=== PATIENT | male | born 1995 | race Caucasian/White ===

== ENCOUNTER 2019-08-02 22:06 | Emergency (ER) | payer OTHER ==
[~2019-08-02] VITALS: Ht 175.3 cm; Wt 88.6 kg
[2019-08-02] MEDS ORDERED: FAMOTIDINE INJ 20MG/2ML VIAL (S0028) IVP ONE (23:00)
[2019-08-02] MEDS ORDERED: PANTOPRAZOLE 40MG INJ (PROTONIX) (C9113) IV ONE (23:00)
[2019-08-02] MEDS ORDERED: NS 1,000 ML IV ONE (23:00)
[2019-08-02] MEDS ORDERED: GI COCKTAIL 50ML BTL(HYOSCYAMINE/MAALOX/LIDOCAINE VISCOUS)(1:3:1) PO ONE (23:00)
[2019-08-02] MEDS ORDERED: SUCRALFATE 1 GM TAB PO ONE (23:00)
[2019-08-02 23:29] LABS: BASO % 0.6 % (0.0-1.0); EOS # 0.2 10^3/uL (0.0-0.5); EOS % 2.2 % (0.0-3.0); HEMATOCRIT 47.6 % (42.0-52.0); HEMOGLOBIN 16.6 g/dl (13.5-17.5); LYMPH # 2.8 10^3/uL (1.5-5.0); LYMPH % 38.9 % (24.0-44.0); MEAN CORPUSCULAR HEMOGLOBIN 32.5 pg (27.0-33.0); MEAN CORPUSCULAR HGB CONC 34.9 g/dl (32.0-36.5); MEAN CORPUSCULAR VOLUME 93.3 fl (80.0-96.0); MONO # 0.5 10^3/uL (0.0-0.8); MONO % 7.1 % (0.0-5.0); NEUTROPHILS # 3.7 10^3/uL (1.5-8.5); NEUTROPHILS % 50.9 % (36.0-66.0); PLATELET COUNT, AUTOMATED 299 10^3/uL (150-450); WHITE BLOOD COUNT 7.2 10^3/uL (4.0-10.0)
[2019-08-02] MEDS: READI-CAT 2 PO SCH (23:32)
[2019-08-02 23:40] LABS: INR 1.18; PROTHROMBIN TIME 14.7 SECONDS (11.8-14.0)
[2019-08-02 23:41] LABS: PARTIAL THROMBOPLASTIN TIME 29.7 SECONDS (25.0-38.4)
[2019-08-03] MEDS: READI-CAT 2 PO SCH (00:02)
[2019-08-03 00:07] LABS: ALBUMIN 4.2 GM/DL (3.2-5.2); BILIRUBIN,DIRECT 0.1 MG/DL (0.0-0.2); BILIRUBIN,TOTAL 0.3 MG/DL (0.2-1.0); TOTAL PROTEIN 8.2 GM/DL (6.4-8.2)
[2019-08-03] MEDS ORDERED: ISOVUE-370 76% 100ML VIAL (Q9967) As Ordered ONE (00:51)
--- NOTE | 2019-08-03 01:17 | REPVR ---
PROCEDURE INFORMATION: Exam: CT Abdomen And Pelvis With Contrast Exam date and time: 08/02/2019 10:56 PM Age: 23 years old Clinical indication: Abdominal pain; Generalized; Additional info: Gi bleeding, epigastric and lower abd pain TECHNIQUE: Imaging protocol: Computed tomography of the abdomen and pelvis with intravenous contrast. Radiation optimization: All CT scans at this facility use at least one of these dose optimization techniques: automated exposure control; mA and/or kV adjustment per patient size (includes targeted exams where dose is matched to clinical indication); or iterative reconstruction. Contrast material: ISO; Contrast volume: 100 ml; Contrast route: AC; Other contrast: Oral, barium, 600; COMPARISON: No relevant prior studies available. FINDINGS: Limitations: Evaluation for active GI bleeding is limited with oral contrast. Liver: Normal. No mass. Gallbladder and bile ducts: Normal. No calcified stones. No ductal dilation. Pancreas: Normal. No ductal dilation. Spleen: Normal. No splenomegaly. Adrenals: Normal. No mass. Kidneys and ureters: Normal. No hydronephrosis. Stomach and bowel: No obstruction. No mucosal thickening. Negative for colonic diverticulitis. Oral contrast in the bowel. Appendix: Appendix is normal. Intraperitoneal space: Unremarkable. No free air. No significant fluid collection. Vasculature: Unremarkable. No abdominal aortic aneurysm. Lymph nodes: Unremarkable. No enlarged lymph nodes. Bladder: Unremarkable as visualized. Reproductive: Prostate is normal in size. Bones/joints: Unremarkable. No acute fracture. Soft tissues: Unremarkable. IMPRESSION: No CT findings to suggest source of abdominal pain. Electronically signed by: Carly Ham On 08/03/2019 01:17:07 AM
[2019-08-03] MEDS ORDERED: CARA1TAB6 PO (01:34)
[2019-08-03] MEDS ORDERED: OMEP-218 PO (01:34)
[2019-08-03] MEDS ORDERED: DICY10CA13 PO (01:39)
[2019-08-03 01:51] VITALS: BP 130/80
== END 2019-08-03 01:53 | disposition home or self-care (01) ==
LOC: M ED 22:06
DX: K92.2 Gastrointestinal hemorrhage, unspecified (principal); K92.1 Melena; Z79.899 Other long term (current) drug therapy
CPT/HCPCS: 74177; 80047; 80076; 81001; 83605; 83690; 85025; 85610; 85730; 93041; 96361; 96374; 96375; 99284; C9113; Q9967

== ENCOUNTER 2019-12-13 12:00 | Emergency (ER) | payer OTHER ==
[~2019-12-13 12:00] MED LIST: CARA1TAB6 PO; DICY10CA13 PO; OMEP-218 PO
[2019-12-13] MEDS ORDERED: ISOVUE-370 76% 100ML VIAL As Ordered ONE (16:10)
[2019-12-17 20:01] LABS: AMPHETAMINES LEVEL URINE NEGATIVE (NEGATIVE); BARBITURATES URINE NEGATIVE (NEGATIVE); BENZODIAZEPINES URINE NEGATIVE (NEGATIVE); CANNABINOIDS URINE NEGATIVE (NEGATIVE); COCAINE METABOLITE URINE NEGATIVE (NEGATIVE); METHADONE URINE NEGATIVE (NEGATIVE); OPIATES URINE NEGATIVE (NEGATIVE); PHENCYCLIDINE URINE NEGATIVE (NEGATIVE)
[2019-12-17 20:02] LABS: ACETAMINOPHEN LEVEL < 2.0 UG/ML (10.0-30.0); ALBUMIN 3.4 GM/DL (3.2-5.2); ALT/SGPT 92 U/L (12-78); BILIRUBIN,DIRECT < 0.1 MG/DL (0.0-0.2); BILIRUBIN,TOTAL 0.3 MG/DL (0.2-1.0); BLOOD UREA NITROGEN 14 MG/DL (7-18); CARBON DIOXIDE LEVEL 31 MEQ/L (21-32); CHLORIDE LEVEL 107 MEQ/L (98-107); CREATININE FOR GFR 1.12 MG/DL (0.70-1.30); ETHYL ALCOHOL (ETHANOL) < 0.003 % (0.000-0.010); GLOMERULAR FILTRATION RATE > 60.0 (>60); GLUCOSE, FASTING 101 MG/DL (70-100); POTASSIUM SERUM 3.9 MEQ/L (3.5-5.1); SALICYLATE LEVEL < 1.7 MG/DL (5.0-30.0); SODIUM LEVEL 141 MEQ/L (136-145)
[2020-01-23 08:24] LABS: BASO # 0.1 10^3/uL (0.0-0.2); BASO % 0.4 % (0.0-1.0); EOS # 0.6 10^3/uL (0.0-0.5); EOS % 5.3 % (0.0-3.0); HEMATOCRIT 40.7 % (42.0-52.0); HEMOGLOBIN 13.9 g/dl (13.5-17.5); LYMPH # 1.5 10^3/uL (1.5-5.0); LYMPH % 13.2 % (24.0-44.0); MEAN CORPUSCULAR HEMOGLOBIN 32.7 pg (27.0-33.0); MEAN CORPUSCULAR HGB CONC 34.2 g/dl (32.0-36.5); MEAN CORPUSCULAR VOLUME 95.8 fl (80.0-96.0); NEUTROPHILS # 8.1 10^3/uL (1.5-8.5); NEUTROPHILS % 71.7 % (36.0-66.0); PLATELET COUNT, AUTOMATED 348 10^3/uL (150-450); RED BLOOD COUNT 4.25 10^6/uL (4.30-6.10); WHITE BLOOD COUNT 11.4 10^3/uL (4.0-10.0)
== END 2019-12-13 20:23 | disposition home or self-care (01) ==
LOC: M ED 12:00
DX: K51.90 Ulcerative colitis, unspecified, without complications (principal); R11.2 Nausea with vomiting, unspecified; Z79.899 Other long term (current) drug therapy
CPT/HCPCS: 74177; 80048; 80076; 80307; 83605; 85025; 99284; G0480; Q9967

== ENCOUNTER 2020-02-07 11:54 | Inpatient (IN) | payer OTHER ==
[~2020-02-07] VITALS: Ht 172.7 cm; Wt 74.6 kg
[2020-02-07] MEDS ORDERED: [UNRECOGNIZED DRUG - OTHER] (12:33)
[2020-02-07] MEDS ORDERED: NS 1,000 ML IV ONE ×2 (14:15→17:30)
--- NOTE | 2020-02-07 14:30 | REPVR ---
PROCEDURE INFORMATION: Exam: XR Chest, 1 View Exam date and time: 02/07/2020 2:18 PM Age: 24 years old Clinical indication: Other: Rectal bleeding and syncope; Additional info: Syncope/near-syncope TECHNIQUE: Imaging protocol: XR of the chest Views: 1 view. COMPARISON: No relevant prior studies available. FINDINGS: Lungs: Unremarkable. No consolidation. Pleural space: Unremarkable. No pleural effusion. No pneumothorax. Heart/Mediastinum: Unremarkable. No cardiomegaly. Bones/joints: Unremarkable. IMPRESSION: No evidence for acute pulmonary disease. Electronically signed by: Kyle Mccarthy On 02/07/2020 14:30:28 PM
[2020-02-07 14:35] LABS: BASO # 0.1 10^3/uL (0.0-0.2); BASO % 0.6 % (0.0-1.0); EOS # 0.1 10^3/uL (0.0-0.5); EOS % 0.9 % (0.0-3.0); HEMATOCRIT 35.9 % (42.0-52.0); HEMOGLOBIN 10.9 g/dl (13.5-17.5); LYMPH # 2.6 10^3/uL (1.5-5.0); LYMPH % 19.3 % (24.0-44.0); MEAN CORPUSCULAR HEMOGLOBIN 27.3 pg (27.0-33.0); MEAN CORPUSCULAR HGB CONC 30.4 g/dl (32.0-36.5); MONO % 7.4 % (0.0-5.0); NEUTROPHILS # 9.6 10^3/uL (1.5-8.5); NEUTROPHILS % 71.4 % (36.0-66.0); PLATELET COUNT, AUTOMATED 578 10^3/uL (150-450); RED BLOOD COUNT 3.99 10^6/uL (4.30-6.10); WHITE BLOOD COUNT 13.5 10^3/uL (4.0-10.0)
[2020-02-07 14:46] LABS: INR 1.1; PROTHROMBIN TIME 14.5 SECONDS (12.5-14.3)
[2020-02-07 14:47] LABS: AMPHETAMINES LEVEL URINE NEGATIVE (NEGATIVE); BARBITURATES URINE NEGATIVE (NEGATIVE); BENZODIAZEPINES URINE NEGATIVE (NEGATIVE); CANNABINOIDS URINE NEGATIVE (NEGATIVE); COCAINE METABOLITE URINE NEGATIVE (NEGATIVE); METHADONE URINE NEGATIVE (NEGATIVE); OPIATES URINE NEGATIVE (NEGATIVE); PARTIAL THROMBOPLASTIN TIME 28.2 SECONDS (24.2-38.5); PHENCYCLIDINE URINE NEGATIVE (NEGATIVE)
[2020-02-07 14:57] LABS: BLOOD UREA NITROGEN 10 MG/DL (7-18); CALCIUM LEVEL 9.8 MG/DL (8.5-10.1); CARBON DIOXIDE LEVEL 28 MEQ/L (21-32); CHLORIDE LEVEL 101 MEQ/L (98-107); CK-MB VALUE MASS < 1.0 NG/ML (<3.6); CPK CREATINE PHOSPHOKINASE 37 U/L (39-308); CREATININE FOR GFR 1.16 MG/DL (0.70-1.30); ETHYL ALCOHOL (ETHANOL) < 0.003 % (0.000-0.010); GLOMERULAR FILTRATION RATE > 60.0 (>60); GLUCOSE, FASTING 90 MG/DL (70-100); MAGNESIUM LEVEL 2.4 MG/DL (1.8-2.4); POTASSIUM SERUM 4.4 MEQ/L (3.5-5.1); SODIUM LEVEL 136 MEQ/L (136-145); THYROID STIMULATING HORMONE 0.571 uIU/ML (0.358-3.740); TROPONIN I < 0.02 NG/ML (< 0.10)
[2020-02-07] MEDS ORDERED: ISOVUE-370 76% 100ML VIAL As Ordered ONE (15:13)
--- NOTE | 2020-02-07 15:54 | REPVR ---
PROCEDURE INFORMATION: Exam: CT Abdomen And Pelvis With Contrast Exam date and time: 02/07/2020 3:37 PM Age: 24 years old Clinical indication: Abdominal pain; Generalized; Additional info: Gi bleed/ abdominal pain TECHNIQUE: Imaging protocol: Computed tomography of the abdomen and pelvis with intravenous contrast. Axial, coronal and sagittal reformatted images were created and reviewed. Radiation optimization: All CT scans at this facility use at least one of these dose optimization techniques: automated exposure control; mA and/or kV adjustment per patient size (includes targeted exams where dose is matched to clinical indication); or iterative reconstruction. Contrast material: ISOVUE 370; Contrast volume: 100 ml; Contrast route: INTRAVENOUS (IV); COMPARISON: CT ABD PELVIS WITH CONTRAST 12/13/2019 5:39 PM FINDINGS: Liver: 4 mm low-density lesion in the right hepatic lobe, similar to prior and too small to characterize. Gallbladder and bile ducts: No radiodense gallstones. No biliary ductal dilatation. Pancreas: Unremarkable. Spleen: Unremarkable. Adrenals: Unremarkable. Kidneys and ureters: No mass. No radiodense calculi. No hydronephrosis. Stomach and bowel: [id number] diffuse colonic wall thickening with associated mural and pericolonic edema, similar to prior. No obstruction. No pneumatosis. Appendix: Normal. Intraperitoneal space: No free fluid. No organized fluid collection. No free air. Vasculature: Unremarkable. No aneurysm. Lymph nodes: Small mesenteric lymph nodes, likely reactive. No pathologically enlarged lymph nodes. Urinary bladder: Unremarkable as visualized. Reproductive: Unremarkable. Bones/joints: No acute osseous abnormality. Soft tissues: Unremarkable. IMPRESSION: 1. Nonspecific pancolitis, as described above, similar to prior. 2. Additional findings, as above. Electronically signed by: Kyle Butler On 02/07/2020 15:54:05 PM
[2020-02-07 17:12] LABS: CLOSTRIDIUM DIFFICILE PCR POSITIVE (NEGATIVE)
[2020-02-07] MEDS ORDERED: VANCOMYCIN ORAL SOL 250MG/5ML ORAL SYRINGE PO ONE (17:15)
[2020-02-07] MEDS ORDERED: FERR5MLUD PO (18:11)
[2020-02-07] MEDS ORDERED: ONDA-83 PO (18:11)
--- NOTE | 2020-02-07 18:39 | HPEPDOC ---
General Date of Admission 02/07/2020 Date of Service: Feb 07, 2020 Attending Physician: ANATOLIY RAWLS MD Chief Complaint The patient is a 24-year-old male admitted with a reason for visit of Rectal Bleeding. Source: Patient, RN/MD Exam Limitations: No limitations Timing/Duration: Week(s), Getting worse Severity: Severe Associated Symptoms: Nausea, Other (abdominal pain, bloody diarrhea) History of Present Illness 24 yo active man with a recent 2m history of several hospital presentations to [facility] for abdominal pain with associated progressive anemia with slow GIB pending IBD workup with Dr. Fisher in the outpatient setting who presented with acute worsening of abdominal symptoms with copious diarrhea with episodic hematochezia and found to have Cdiff colitis, acute on chronic anemia and orthostatic hypotension. He reports no history of abdominal complaints before a few months ago. He has lost approximately 40 lbs within the few months that he has had epigastric pain, diarrhea and hematochezia. He has presented to several [facility] and was previously empirically placed on mesalamine by his PCP for presumed inflammatory bowel disease without remission, and instead, it made him queasy and feel poorly. It was stopped 1 month ago. Today he reports hematochezia with a mixture of clots and BRBPR, copious diarrhea, epigastric pain, nausea and feeling faint without fever, chills, rashes or chest pain. In the ED he was orthostatic and was administered 1L NS bolus. Work up was notable for WBC 13.5, Hgb 10.9 from 13.9 in 11/2019, platelets 578, na 136, K 4.4, Cr 1.16, TSH 0.571, negative tox screen, had pancolitis on CT A/P and had a positive C.diff toxin on testing. He is now being admitted to medicine with plan to hydrate, treat C.diff colitis, monitor GIB with tentative plan for outpatient GI follow up for IBD evaluation. Home Medications Scheduled Ferrous Sulfate (Ferrous Sulfate) 300 Mg/5 Ml Liquid, 2 ML PO BID, (Reported) Scheduled PRN Ondansetron HCl (Ondansetron HCl) 4 Mg Tablet, 4 MG PO Q4H PRN for NAUSEA OR V OMITING, (Reported) Allergies Coded Allergies: No Known Drug Allergies (Verified Allergy, Unknown, 08/02/19) Past Medical History Medical History Ongoing work up for probable IBD for multiple presentations at various area hospitals with abdominal pain with GIB and anemia pending evaluation by Phillip on 02/10/2020 Surgical History None Family History Significant Family History: No pertinent family hx Social History Alcohol: Denies Drugs: denies Recent Travel/Sick Contacts: Denies: Recent travel, Recent sick contacts Psychosocial History: No pertinent psych hx A-FIB/CHADSVASC A-FIB History Current/History of A-Fib/PAF?: No Current PO Anticoag Therapy: No Age/Risk Factor Scoring CHADSVASC: CHADSVASC Response (Comments) Value Age Risk Factor Age < 65 years old 0 Gender Risk Factor Male 0 Hx of CHF No 0 Hx of HTN No 0 Hx of Stroke/TIA/or VTE No 0 Hx of Diabetes No 0 Hx of Vascular Disease No 0 Total 0 Treatment Treatment ordered: NONE Reason Anticoagulant not given: Not indicated/[id number] Review of Systems Constitutional: Denies: Chills, Fever, Night Sweats Eyes: Denies: Pain, Vision change ENT: Denies: Head Aches, Ear Pain, Dysphagia Skin: Denies: Rash, Lesions, Breakdown Pulmonary: Denies: Dyspnea, Cough Cardiovascular: Denies: Chest Pain, Palpitations, Orthopnea, Paroxysmal Noc. Dyspnea, Lt Headedness Gastrointestinal: Reports: Nausea, Abdominal Pain, Diarrhea, Hematochezia Genitourinary: Denies: Dysuria, Frequency, Incontinence, Retention Hematologic: Denies: Bruising, Bleeding Excessively Endocrine: Denies: Polydipsia, Polyphagia, Polyuria, Heat Intolerance, Cold Intolerance, Other Endocrine Sx Musculoskeletal: Denies: Neck Pain, Back Pain, Joint Pain, Muscle Pain, Spasms Neurological: Denies: Weakness, Numbness, Change in speech, Confusion Psych: Reports: Mood Normal; Denies: Depression, Memory Issues Physical Examination General Exam: Positive: Alert, No Acute Distress Eye Exam: Positive: PERRLA, Conjunctiva & lids normal, EOMI; Negative: Sclera icteric ENT Exam: Positive: Atraumatic, Pharynx Normal; Negative: Mucous membr. moist/pink (dry MM) Neck Exam: Positive: Supple; Negative: JVD, thyromegaly Chest Exam: Positive: Clear to auscultation, Normal air movement Heart Exam: Positive: Rate Normal, Regular Rhythm, Normal S1, Normal S2; Negative: Murmurs, Rubs Telemetry: Positive: No significant arrhythmia Abdomen Exam: Positive: BS Hyperactive, Soft, Tenderness (diffuse mild TTP, worst in epigastrum, no rebound, no guarding); Negative: Hepatospenomegaly, Mass, Hernia Extremity Exam: Positive: Normal pulses; Negative: Clubbing, Cyanosis, Edema Skin Exam: Positive: Nl turgor and temperature; Negative: Breakdown, Lesion Neuro Exam: Positive: Normal Gait, Normal Speech, Cranial Nerves 3-12 NL, Reflexes 2+ Psych Exam: Positive: Mental status NL, Mood NL, Oriented x 3 Vital Signs Vital Signs Date Time Temp Pulse Resp B/P (MAP) Pulse Ox O2 Delivery O2 Flow Rate FiO2 02/07/20 13:01 137/75 (95) 02/07/20 12:54 120 100 Room Air 02/07/20 12:03 97.7 18 Laboratory Data Labs 24H Laboratory Tests 2 02/07/20 13:56: Immature Granulocyte % (Auto) 0.4, Neutrophils (%) (Auto) 71.4H, Lymphocytes (%) (Auto) 19.3L, Monocytes (%) (Auto) 7.4H, Eosinophils (%) (Auto) 0.9, Basophils (%) (Auto) 0.6, Neutrophils # (Auto) 9.6H, Lymphocytes # (Auto) 2.6, Monocytes # (Auto) 1.0H, Eosinophils # (Auto) 0.1, Basophils # (Auto) 0.1, Nucleated Red Blood Cells % (auto) 0.0, Prothrombin Time 14.5H, Prothromb Time International Ratio 1.10, Activated Partial Thromboplast Time 28.2, Anion Gap 7L, Glomerular Filtration Rate > 60.0, Calcium Level 9.8, Magnesium Level 2.4, Total Creatine Kinase 37L, Creatine Kinase MB < 1.0, Creatine Kinase MB Relative Index 2.70, Troponin I < 0.02, Thyroid Stimulating Hormone (TSH) 0.571, Urine Opiates Screen NEGATIVE, Urine Methadone Screen NEGATIVE, Urine Barbiturates Screen NEGATIVE, Urine Phencyclidine Screen NEGATIVE, Urine Amphetamines Screen NEGATIVE, Urine Benzodiazepines Screen NEGATIVE, Urine Cocaine Metabolite Screen NEGATIVE, Urine Cannabinoids Screen NEGATIVE, Ethyl Alcohol Level < 0.003 02/07/20 14:32: Lactic Acid Level 1.4 02/07/20 14:33: Clostridium difficile [id number] PRESUMPTIVE NEGATIVE, Clostridium difficile Toxin (PCR) POSITIVEA CBC/BMP Laboratory Tests 02/07/20 13:56 Microbiology Microbiology 02/07/20 Campylobacter (PCR), Received Pending 02/07/20 Clostridium difficile Toxin A&B PCR, Received Pending 02/07/20 Plesiomonas shigelloides (PCR), Received Pending 02/07/20 Salmonella (PCR)(RED), Received Pending 02/07/20 Vibrio Species (PCR), Received Pending 02/07/20 Vibrio Cholerae (PCR), Received Pending 02/07/20 Yersinia enterocolitica (PCR), Received Pending 02/07/20 Enteroaggregative E. coli (PCR), Received Pending 02/07/20 Enteropathogenic E. coli (PCR), Received Pending 02/07/20 Enterotoxigenic E. coli (PCR), Received Pending 02/07/20 E. coli Shiga-like Toxin (PCR), Received Pending 02/07/20 Escherichia coli 0157 (PCR), Received Pending 02/07/20 Enteroinvasive E. coli/Shigella PCR, Received Pending 02/07/20 Cryptosporidium (PCR), Received Pending 02/07/20 Cyclospora cayetanensis (PCR), Received Pending 02/07/20 Entamoeba histolytica (PCR), Received Pending 02/07/20 Giardia lamblia (PCR), Received Pending 02/07/20 Adenovirus Type F 40/41 (PCR), Received Pending 02/07/20 Astrovirus (PCR), Received Pending 02/07/20 Norovirus GI/GII (PCR), Received Pending 02/07/20 Rotavirus A (PCR), Received Pending 02/07/20 Sapovirus I/II/IV/V (PCR), Received Pending Assessment/Plan 24 yo active man with a recent 2m history of several hospital presentations to [facility] for abdominal pain with associated progressive anemia with slow GIB pending IBD workup with Dr. Fisher in the outpatient setting who presented with acute worsening of abdominal symptoms with copious diarrhea with episodic hematochezia and found to have Cdiff colitis, acute on chronic anemia and orthostatic hypotension. C diff colitis: -continue NS at 125cc/hr, sp NS bolus in ED -strict I/Os nad charting of number of BMs -250mg PO vanc Q6H -Cdiff precautions -zofran 4mg Q6H PRN for nausea -diet to advance as tolerated -check H/H Q6H for now -Pending IBD evaluation by Dr. Fisher with first appt scheduled for 02/09. Goal will be to treat C.diff and hopefully with improvement, to complete course as an outpatient so that he may present for his GI evaluation Acute on chronic anemia: Acute blood loss anemia on chronic JAY -Q6H H/H for now while have copious diarrhea -goal Hgb >8 -continue home ferrous sulfate -Anemia workup, could be mixed with malabsorption as well beyond iron deficiency DVT ppx: TEDs Dispo: medsurg, inpatient Plan / VTE VTE Prophylaxis Ordered?: Yes ANATOLIY RAWLS MD Feb 07, 2020 18:39
[2020-02-07] MEDS: NS 1,000 ML IV SCH (19:45)
--- NOTE | 2020-02-07 20:52 | ECGEPIP ---
[facility] - ED Test Date: 2020-02-07 Pat Name: MONICA WILLIAMSON Department: Room: - Gender: Male Review Appraiser: toney : 1995 Requested By: NASEEM Martinez Order Number: [id number] Reading MD: Chelsie Cho Measurements Intervals [place] Rate: 72 P: 71 IL: 135 QRS: 83 QRSD: 84 T: 73 QT: 371 QTc: 407 Interpretive Statements SINUS RHYTHM MODERATE ST DEPRESSION NO PRIOR Electronically Signed on 02-07-2020 20:52:13 EDT by Chelsie Cho
[2020-02-07 22:00] VITALS: BP 133/81
[2020-02-08] MEDS: VANCOMYCIN ORAL SOL 250MG/5ML ORAL SYRINGE PO SCH ×5 (00:44→23:51)
[2020-02-08] MEDS: NS 1,000 ML IV SCH ×3 (04:39→23:51)
[2020-02-08 06:00] VITALS: BP_SYST 146; BP_SYST 154; BP_DIAS 74; BP_DIAS 85
[2020-02-08 07:00] LABS: MEAN CORPUSCULAR HEMOGLOBIN 27.1 pg (27.0-33.0); MEAN CORPUSCULAR HGB CONC 30.7 g/dl (32.0-36.5); MEAN CORPUSCULAR VOLUME 88.1 fl (80.0-96.0); PLATELET COUNT, AUTOMATED 568 10^3/uL (150-450); RED BLOOD COUNT 3.29 10^6/uL (4.30-6.10); WHITE BLOOD COUNT 11.2 10^3/uL (4.0-10.0)
[2020-02-08 07:11] LABS: HEMOGLOBIN 8.9 g/dl (13.5-17.5)
[2020-02-08 07:45] LABS: BLOOD UREA NITROGEN 7 MG/DL (7-18); CALCIUM LEVEL 8.4 MG/DL (8.5-10.1); CARBON DIOXIDE LEVEL 25 MEQ/L (21-32); CHLORIDE LEVEL 105 MEQ/L (98-107); CREATININE FOR GFR 0.88 MG/DL (0.70-1.30); FERRITIN 12 NG/ML (26-388); GLOMERULAR FILTRATION RATE > 60.0 (>60); GLUCOSE, FASTING 86 MG/DL (70-100); IRON (FE) 14 UG/DL (65-175); PERCENT SATURATION 4.2 % (19.7-50.0); POTASSIUM SERUM 4.1 MEQ/L (3.5-5.1); SODIUM LEVEL 137 MEQ/L (136-145); TOTAL IRON BINDING CAPACITY 333 UG/DL (250-450)
[2020-02-08 10:31] LABS: VITAMIN B12 LEVEL 1026 PG/ML (247-911)
[2020-02-08 10:32] LABS: FOLATE 10.2 NG/ML (>5.4)
--- NOTE | 2020-02-08 13:31 | IPNPDOC ---
Text Note Date of Service The patient was seen on 02/08/20. NOTE SUBJECTIVE: -3 bowel movements overnight, continue to be mixed in with fresh blood OBJECTIVE: Vitals: see below. HDS, afebrile, on room air Gen: NAD Head: NCAT Eyes: PERRLA, EOMI, anicteric, non injected ENT: MMM, no mouth sores Neck: no palpable adenopathy, no JVD Pulm: CTAB Cardiac: RRR, no mrg Abd: epigastric TTP, normoactive sounds, soft, no masses or hepatosplenomegaly Ext: no LE edema, WWP, 2+ DP pulses Neuro: CN 2-12 intact, moving all extremities Psych: AOx3 Labs: Reviewed. See below for full details. WBC 11.2 hgb downtrended to 8.9 platelets 568 BMP pending Assessment: 24 yo active man with a recent 2m history of several hospital presentations to [facility] for abdominal pain with associated progressive anemia with slow GIB pending IBD workup with Dr. Fisher in the outpatient setting who presented with acute worsening of abdominal symptoms with copious diarrhea with episodic hematochezia and found to have Cdiff colitis, acute on chronic anemia and orthostatic hypotension. C diff colitis: -continue NS at 100cc/hr -strict I/Os and charting of number of BMs -Dose escalate to 500mg Q6 from 250mg Q6H PO vanc given degree of diarrhea and the GIB -Cdiff precautions -zofran 4mg Q6H PRN for nausea -regular diet for now -check H/H Q6H for now -Pending IBD evaluation by Dr. Fisher with first appt scheduled for 02/09. Goal at this time remains to treat C.diff and hopefully with improvement, to complete course as an outpatient so that he may present for his GI evaluation. Will consult surgery if GIB proves to be brisk. Acute on chronic anemia: Acute blood loss anemia on chronic JAY -Q12H H/H for now while having significant diarrhea w/ hematochezia. Will consult surgery if GIB proves to be brisk. Next check at 2PM -goal Hgb >8 -continue home ferrous sulfate -Anemia workup, could be mixed with malabsorption of other components as well beyond iron deficiency DVT ppx: TEDs Dispo: medsurg, inpatient VS,Fishbone, I+O VS, Fishbone, I+O Laboratory Tests 02/07/20 13:56 02/08/20 06:51 Vital Signs Date Time Temp Pulse Resp B/P (MAP) Pulse Ox O2 Delivery O2 Flow Rate FiO2 02/08/20 06:00 98.1 88 18 146/85 (105) 97 02/07/20 12:54 Room Air I&O- Last 24 Hours up to 6 AM 02/08/20 06:00 Intake Total 2000 ml Output Total 250 ml Balance 1750 ml ANATOLIY RAWLS MD Feb 08, 2020 07:57
[2020-02-08 14:00] VITALS: BP 155/96
[2020-02-08 14:13] LABS: HEMATOCRIT 29.1 % (42.0-52.0); HEMOGLOBIN 8.9 g/dl (13.5-17.5)
[2020-02-08] MEDS ORDERED: MORPHINE 2 MG/ML 1ML VIAL (J2270) IV PRN (17:45)
[2020-02-08] MEDS: ONDANSETRON 4MG/2ML VIAL IV PRN (18:01)
[2020-02-08 22:00] VITALS: BP 152/88
[2020-02-09] MEDS: NS 1,000 ML IV SCH ×3 (05:48→23:40)
[2020-02-09] MEDS: VANCOMYCIN ORAL SOL 250MG/5ML ORAL SYRINGE PO SCH ×4 (05:48→23:39)
[2020-02-09 06:00] VITALS: BP 141/85
[2020-02-09] MEDS ORDERED: traMADol 50 MG TAB PO PRN (08:45)
[2020-02-09] MEDS: ONDANSETRON 4MG/2ML VIAL IV PRN ×2 (09:08→19:06)
[2020-02-09 09:39] LABS: HEMATOCRIT 26.6 % (42.0-52.0); HEMOGLOBIN 8.1 g/dl (13.5-17.5); MEAN CORPUSCULAR HEMOGLOBIN 27.1 pg (27.0-33.0); MEAN CORPUSCULAR HGB CONC 30.5 g/dl (32.0-36.5); PLATELET COUNT, AUTOMATED 570 10^3/uL (150-450); RED BLOOD COUNT 2.99 10^6/uL (4.30-6.10); WHITE BLOOD COUNT 9.7 10^3/uL (4.0-10.0)
[2020-02-09 10:05] LABS: BLOOD UREA NITROGEN 3 MG/DL (7-18); CALCIUM LEVEL 8.3 MG/DL (8.5-10.1); CARBON DIOXIDE LEVEL 26 MEQ/L (21-32); CHLORIDE LEVEL 106 MEQ/L (98-107); CREATININE FOR GFR 0.93 MG/DL (0.70-1.30); GLOMERULAR FILTRATION RATE > 60.0 (>60); GLUCOSE, FASTING 102 MG/DL (70-100); POTASSIUM SERUM 3.8 MEQ/L (3.5-5.1); SODIUM LEVEL 138 MEQ/L (136-145)
--- NOTE | 2020-02-09 11:29 | IPNPDOC ---
Text Note Date of Service The patient was seen on 02/09/20. NOTE SUBJECTIVE: -Persistent bloody diarrhea -LLQ abdominal pain, mild this morning OBJECTIVE: Vitals: see below. HDS, afebrile, on room air Gen: NAD Head: NCAT Eyes: PERRLA, EOMI, anicteric, non injected ENT: MMM, no mouth sores Neck: no palpable adenopathy, no JVD Pulm: CTAB Cardiac: RRR, no mrg Abd: TTP, mostly in LLQ, normoactive sounds, soft, no masses or hepatosplenomegaly Ext: no LE edema, WWP, 2+ DP pulses Neuro: CN 2-12 intact, moving all extremities Psych: AOx3 Labs: Reviewed. See below for full details. Hgb drowntrended to 8.1 Assessment: 24 yo active man with a recent 2m history of several hospital presentations to [facility] for abdominal pain with associated progressive anemia with slow GIB pending IBD workup with Dr. Fisher in the outpatient setting who presented with acute worsening of abdominal symptoms with copious diarrhea with episodic hematochezia and found to have Cdiff colitis, acute on chronic anemia and orthostatic hypotension. C diff colitis: -Continue NS at 100cc/hr -strict I/Os and charting of number of BMs -Continue 500mg Q6 PO vanc, day 2 of high dose vanc -Cdiff precautions -zofran 4mg Q6H PRN for nausea -regular diet for now -Consulted Dr. Apodaca who was supposed to see him tomorrow AM in clinic and he will scope him inpatient --> clear liquid diet. 4L of golytely prep starting at 3PM for colonoscopy tomorrow -covid-19 test for scope tomorrow -[id number] for severe abdominal pain Acute on chronic anemia: Acute blood loss anemia on chronic JAY -Q12H H/H for now while having significant diarrhea w/ hematochezia. Will consult surgery if GIB proves to be brisk. Next check at 2PM -goal Hgb >8 -continue home ferrous sulfate -Anemia workup, could be mixed with malabsorption of other components as well beyond iron deficiency DVT ppx: TEDs Dispo: medsurg, inpatient. VS,Fishbone, I+O VS, Fishbone, I+O Laboratory Tests 02/08/20 14:00 Vital Signs Date Time Temp Pulse Resp B/P (MAP) Pulse Ox O2 Delivery O2 Flow Rate FiO2 02/09/20 06:00 99.4 87 16 141/85 (103) 97 Room Air I&O- Last 24 Hours up to 6 AM 02/09/20 06:00 Intake Total 2190 ml Output Total 1875 ml Balance 315 ml ANATOLIY RAWLS MD Feb 09, 2020 08:40
[2020-02-09] MEDS ORDERED: MORPHINE 2 MG/ML 1ML VIAL (J2270) IV PRN (11:45)
[2020-02-09 14:00] VITALS: BP 135/80
[2020-02-09 14:28] LABS: HEMATOCRIT 30.2 % (42.0-52.0); HEMOGLOBIN 9.1 g/dl (13.5-17.5)
[2020-02-09] MEDS ORDERED: GOLYTELY SOLN 4000 ML BTL PO ONE (15:00)
--- NOTE | 2020-02-09 16:25 | CR.PDOC ---
General Date of Consultation: Feb 09, 2020 Referring Provider: BEBA RAWLS MD Attending Physician: OTTO GOODRICH MD Consultation Primary physician/ hospitalist: -Dr. Beba De Oliveira Reason for consult: -Rectal bleeding and abnormal CT scan HPI: 24-year-old male patient with no chronic medical comorbidities, previously being worked up at outside [facility] GI clinic for diarrhea and blood in stools, is now admitted to [facility] for acute worsening of symptoms. Patient reports that for the past 2-3 months, he was noticing worsening diarrhea, with multiple loose watery stools ( every hour), with bright red blood in the stools, cramping lower abdom inal pain, nausea and vomiting intermittently. Patient also reports unintentional weight loss of 40 pounds over the last 3 months. Off note: Patient had blood in the stools with 3-5 bowel movements per day, formed to soft stools in the past for which he had multiple local area Hospitalizations, had colonoscopy in 2019 in [place], which patient reports was a nondiagnostic. As per EMR. Patient was on mesalamine in past, but was not taking it for the past 1 month. Review of Systems: GI: as stated above CVS: No chest pain, No palpitations, No leg swelling. RS: No Shortness of breath, No Wheezing, no cough COVER OPERATOR: No dizziness, No motor weakness, No sensory problems Hematology: No bruising, No gum bleeding, Musculoskeletal: No joint pain, ambulating well. Skin: No rash : No hematuria, No burning sensation of the urine ENT: No ear discharge/ pain, No dysphagia. Eyes: No photophobia. Jaundice Home medications: reviewed. Antithrombotic agents: -None Medical h/o: As above. Surgical h/o: None on abdomen. Social h/o: Alcohol: -Denies, smoking: Denies, IVDA/ drugs: Denies. Family h/o of GI cancers - None Prior Endoscopies: Patient reports having colonoscopy in [place] - nond iagnostic, as per patient. No reports available Prior GI evaluations: Patient is referred to and scheduled to see GI in [facility] clinic tomorrow. Exam: Vitals: reviewed General: Alert and oriented x 3, not in distress HEENT: NO pallor, no icterus. Normal oropharynx, NO cervical lymph nodes. Chest: symmetric with bilateral clear air entry, CVS: S1, S2 heard, normal, no murmurs . Abdomen: non-distended, no surgical scars, soft, non-tender, no palpable masses, normal bowel sounds heard. Rectal exam: Deferred at this time in view of scheduled colonoscopy. Extremities: no pedal edema, pulses palpable. COVER OPERATOR: no focal motor or sensory deficits. Moves all extremities Skin: no rash. Labs: reviewed.. Imaging: reviewed. Impression: -- Chronic lower GI symptoms with diarrhea, bloody stools, abnormal CT scan showing pancolitis and stool tests showing C. difficile infection -- Anemia likely from GI blood loss. Recommendations: -- Patient educated about the test results, possible differential diagnoses and All questions answered. -- Continue oral vancomycin course for C. difficile for 10 days ( due to suspected IBD and severe symptoms, it is reasonable to continue the higher dose. Discussed the risks and benefits with patient). -- In view of severe rectal bleeding and anemia, will schedule for Colonoscopy. The procedure, indications, risks (bleeding, perforation, infection, hypotension, respiratory depression, allergy, need for endotracheal intubation, surgery, colostomy, cardiac arrest, even ), benefits, limitations (e.g., mi ssing a lesion), and all other alternatives (including no intervention) were explained to the patient who understood and agreed for the procedure. -- Follow operative note for postprocedure recommendations. Plan of care discussed with patient and primary team. Patient verbalized understanding and agreed with the plan. Addendum/ Follow up after the Procedure: Patient tolerated the procedure well. No post procedure complications. Patient is noted to have severe diffuse ulceration extending from rectum to Splenic flexure. Also noted suspected pseudomembranes, suggestive of severe c. difficile colitis. Fluid aspirate and colon biopsies were done for further evaluation. Please review the operative note for detailed report. Will complete the course of vancomycin for total 10 days. If patient develops any ileus, abdominal distention or sepsis, then consider adding rectal vancomycin. Monitor clinical symptoms in hospital until improvement in bloody diarrhea due to high risk for complications. Obtain ASCA, ANCA panel and Hepatitis B Surface antibody and quanteferon. Based on the biopsy results if reported IBD, to consider immunomodulator therapy after resolution of C. difficile. Patient to follow up in GI clinic in 4 weeks to review the above results and fu rther management. Plan of care discussed with patient and he verbalized understanding and agreed. Vital Signs/I&O Vital Signs Date Time Temp Pulse Resp B/P (MAP) Pulse Ox O2 Delivery O2 Flow Rate FiO2 02/09/20 06:00 99.4 87 16 141/85 (103) 97 Room Air I&O- Last 24 Hours up to 6 AM 02/09/20 06:00 Intake Total 2190 ml Output Total 1875 ml Balance 315 ml Laboratory Data Labs 24H Laboratory Tests 2 02/09/20 09:15: Nucleated Red Blood Cells % (auto) 0.0, Anion Gap 6L, Glomerular Filtration Rate > 60.0, Calcium Level 8.3L CBC/BMP Laboratory Tests 02/09/20 09:15 02/09/20 13:55 Microbiology Microbiology 02/07/20 Campylobacter (PCR), Received Pending 02/07/20 Clostridium difficile Toxin A&B PCR, Received Pending 02/07/20 Plesiomonas shigelloides (PCR), Received Pending 02/07/20 Salmonella (PCR)(RDE), Received Pending 02/07/20 Vibrio Species (PCR), Received Pending 02/07/20 Vibrio Cholerae (PCR), Received Pending 02/07/20 Yersinia enterocolitica (PCR), Received Pending 02/07/20 Enteroaggregative E. coli (PCR), Received Pending 02/07/20 Enteropathogenic E. coli (PCR), Received Pending 02/07/20 Enterotoxigenic E. coli (PCR), Received Pending 02/07/20 E. coli Shiga-like Toxin (PCR), Received Pending 02/07/20 Escherichia coli 0157 (PCR), Received Pending 02/07/20 Enteroinvasive E. coli/Shigella PCR, Received Pending 02/07/20 Cryptosporidium (PCR), Received Pending 02/07/20 Cyclospora cayetanensis (PCR), Received Pending 02/07/20 Entamoeba histolytica (PCR), Received Pending 02/07/20 Giardia lamblia (PCR), Received Pending 02/07/20 Adenovirus Type F 40/41 (PCR), Received Pending 02/07/20 Astrovirus (PCR), Received Pending 02/07/20 Norovirus GI/GII (PCR), Received Pending 02/07/20 Rotavirus A (PCR), Received Pending 02/07/20 Sapovirus I/II/IV/V (PCR), Received Pending Allergies Coded Allergies: No Known Drug Allergies (Verified Allergy, Unknown, 08/02/19) Home Medications Scheduled Ferrous Sulfate (Ferrous Sulfate) 300 Mg/5 Ml Liquid, 2 ML PO BID for 30 Days, #120 (Reported) Scheduled PRN Ondansetron HCl (Ondansetron HCl) 4 Mg Tablet, 4 MG PO Q4H PRN for NAUSEA OR VOMITING, (Reported) OTTO GOODRICH MD Feb 09, 2020 16:25
[2020-02-09 22:00] VITALS: BP 139/86
[2020-02-10] VITALS (11 sets, daily range): BP systolic 130–157; BP diastolic 75–98
[2020-02-10] MEDS: VANCOMYCIN ORAL SOL 250MG/5ML ORAL SYRINGE PO SCH ×3 (06:48→18:18)
[2020-02-10] MEDS: NS 1,000 ML IV SCH ×2 (06:48→18:18)
[2020-02-10 08:11] LABS: HEMATOCRIT 32.4 % (42.0-52.0); HEMOGLOBIN 9.6 g/dl (13.5-17.5); MEAN CORPUSCULAR HEMOGLOBIN 26.4 pg (27.0-33.0); MEAN CORPUSCULAR HGB CONC 29.6 g/dl (32.0-36.5); MEAN CORPUSCULAR VOLUME 89.3 fl (80.0-96.0); PLATELET COUNT, AUTOMATED 669 10^3/uL (150-450); RED BLOOD COUNT 3.63 10^6/uL (4.30-6.10); WHITE BLOOD COUNT 10.2 10^3/uL (4.0-10.0)
[2020-02-10 08:31] LABS: BLOOD UREA NITROGEN 2 MG/DL (7-18); CALCIUM LEVEL 8.9 MG/DL (8.5-10.1); CARBON DIOXIDE LEVEL 27 MEQ/L (21-32); CHLORIDE LEVEL 105 MEQ/L (98-107); CREATININE FOR GFR 0.91 MG/DL (0.70-1.30); GLOMERULAR FILTRATION RATE > 60.0 (>60); GLUCOSE, FASTING 88 MG/DL (70-100); POTASSIUM SERUM 4.1 MEQ/L (3.5-5.1); SODIUM LEVEL 138 MEQ/L (136-145)
--- NOTE | 2020-02-10 11:43 | IPNPDOC ---
Text Note Date of Service The patient was seen on 02/10/20. NOTE SUBJECTIVE: -Persistent bloody diarrhea. Had golytely prep overnight -Mild LLQ abdominal pain this AM -NPo this AM for colonoscopy with Dr. Apodaca at 1PM OBJECTIVE: Vitals: see below. HDS, afebrile, on room air Gen: NAD Head: NCAT Eyes: PERRLA, EOMI, anicteric, non injected ENT: MMM, no mouth sores Neck: no palpable adenopathy, no JVD Pulm: CTAB Cardiac: RRR, no mrg Abd: mild TTP worst in LLQ, normoactive sounds, soft Ext: no LE edema, WWP, 2+ DP pulses Neuro: CN 2-12 intact, moving all extremities Psych: AOx3 Labs: Reviewed. See below for full details. Hgb was last 9.1 @ 2PM. Pending AM labs Assessment: 24 yo active man with a recent 2m history of several hospital presentations to [facility] for abdominal pain with associated progressive anemia with slow GIB pending IBD workup with Dr. Fisher in the outpatient setting who presented with acute worsening of abdominal symptoms with copious diarrhea with episodic hematochezia and found to have Cdiff colitis, acute on chronic anemia and orthostatic hypotension. C diff colitis: -Continue NS at 100cc/hr -strict I/Os and charting of number of BMs -Continue 500mg Q6 PO vanc, day 3 of high dose vanc -Cdiff precautions -zofran 4mg Q6H PRN for nausea -NPO for colonoscopy -Consulted Dr. Apodaca, s/p 4L of golytely prep, due for colonoscopy at 1PM today -covid-19 test negative -[id number] morphine IV for severe abdominal pain -IV zofran PRN for nausea Acute on chronic anemia: Acute blood loss anemia on chronic JAY -Q12H H/H -goal Hgb >8 DVT ppx: TEDs Dispo: medsurg, inpatient. VS,Fishbone, I+O VS, Fishbone, I+O Laboratory Tests 02/09/20 09:15 02/09/20 13:55 Vital Signs Date Time Temp Pulse Resp B/P (MAP) Pulse Ox O2 Delivery O2 Flow Rate FiO2 02/10/20 06:00 98.1 92 20 137/86 (103) 100 Room Air I&O- Last 24 Hours up to 6 AM 02/10/20 06:00 Intake Total 2300 ml Output Total 1625 ml Balance 675 ml ANATOLIY RAWLS MD Feb 10, 2020 07:57
[2020-02-10] MEDS ORDERED: propofoL 200 MG/20 ML VIAL ONE (13:29)
[2020-02-10] MEDS ORDERED: LIDOCAINE 2% 100MG/5ML SDV (FOR ANES.) ONE (13:29)
--- NOTE | 2020-02-10 14:05 | ROOR ---
" Patient Name: Eric Heath Procedure Date: 02/10/2020 1:09 PM Date of : 1995 Age: 24 Room: [facility] Gender: Male Note Status: Finalized Procedure: Colonoscopy Indications: Hematochezia, Chronic diarrhea, Diarrhea (presumed secondary to ulcerative colitis) Providers: Tj Apodaca MD Referring MD: 2. Inpatient 2. Inpatient, KWASI SHIRLEY MD Requesting Provider: Medicines: Monitored Anesthesia Care Complications: No immediate complications. Procedure: Pre-Anesthesia Assessment: - Prior to the procedure, a History and Physical was performed, and patient medications and allergies were reviewed. The patient is competent. The risks and benefits of the procedure and the sedation options and risks were discussed with the patient. All questions were answered and informed consent was obtained. Patient identification and proposed procedure were verified by the physician, the nurse and the anesthesiologist in the procedure room. Mental Status Examination: alert and oriented. Airway Examination: normal oropharyngeal airway and neck mobility. Respiratory Examination: clear to auscultation. CV Examination: normal. Prophylactic Antibiotics: The patient does not require prophylactic antibiotics. Prior Anticoagulants: The patient has taken no previous anticoagulant or antiplatelet agents. ASA Grade Assessment: II - A patient with mild systemic disease. After reviewing the risks and benefits, the patient was deemed in satisfactory condition to undergo the procedure. The anesthesia plan was to use moderate sedation / analgesia (conscious sedation). Immediately prior to administration of medications, the patient was re-assessed for adequacy to receive sedatives. The heart rate, respiratory rate, oxygen saturations, blood pressure, adequacy of pulmonary ventilation, and response to care were monitored throughout the procedure. The physical status of the patient was re-assessed after the procedure. The Colonoscope was introduced through the anus and advanced to the splenic flexure for evaluation. This was the intended extent. The colonoscopy was performed without difficulty. The patient tolerated the procedure well. The quality of the bowel preparation was good. The terminal ileum, ileocecal valve, appendiceal orifice, and rectum were photographed. Scope insertion time was 2 minutes. Scope withdrawal time was 8 minutes. The total duration of the procedure was 10 minutes. Findings: The perianal and digital rectal examinations were normal. A continuous area of bleeding ulcerated mucosa with stigmata of recent bleeding was present from rectum to splenic flexure. Biopsies were taken with a cold forceps for histology. Verification of patient identification for the specimen was done by the physician and nurse using the patient's name, date and medical record number. Estimated blood loss was minimal. Fluid aspiration was performed through the scope suction channel. The amount of fluid collected was 10 mL. The fluid was blood-tinged. Sample(s) were sent for microbiology. Biopsies were taken with a cold forceps for histology. Verification of patient identification for the specimen was done by the physician and nurse using the patient's name, date and medical record number. Estimated blood loss was minimal. A segmental pseudomembrane was found in the sigmoid colon and in the descending colon. Retroflexion in the rectum was not performed due to |{skip}|. Impression: - Mucosal ulceration. Biopsied. Fluid aspiration performed. - Pseudomembranous enterocolitis. Recommendation: - Patient has a contact number available for emergencies. The signs and symptoms of potential delayed complications were discussed with the patient. Return to normal activities tomorrow. Written discharge instructions were provided to the patient. - Low residue diet. - Continue present medications. - Vancocin (vancomycin) 500 mg PO QID for 10 days. - Check IBD panel, HbsAb, quanteferon for further assessment. - Await pathology results. - Repeat colonoscopy in 6 months to check healing and to assess disease activity. - Return to GI clinic in [facility] (address [address], [address], [place], [address]) in 4 -- 6 weeks. Please call GI clinic @ [phone] for apppointment date and time. - Return to primary care physician. Tj Apodaca MD Tj Apodaca MD 02/10/2020 2:04:42 PM Electronically signed by Tj Apodaca MD Number of Addenda: 0 Note Initiated On: 02/10/2020 1:09 PM Estimated Blood Loss: Estimated blood loss was minimal."
[2020-02-10] MEDS ORDERED: VANC1CAP7 PO (15:24)
[2020-02-10 15:49] LABS: CLOSTRIDIUM DIFFICILE PCR NEGATIVE (NEGATIVE)
[2020-02-10] MEDS: ONDANSETRON 4MG/2ML VIAL IV PRN (19:57)
[2020-02-11] MEDS: VANCOMYCIN ORAL SOL 250MG/5ML ORAL SYRINGE PO SCH ×2 (00:21→05:59)
[2020-02-11 03:45] VITALS: BP 153/94
[2020-02-11 05:50] LABS: HEMATOCRIT 28.9 % (42.0-52.0); MEAN CORPUSCULAR HEMOGLOBIN 27.3 pg (27.0-33.0); MEAN CORPUSCULAR HGB CONC 31.1 g/dl (32.0-36.5); MEAN CORPUSCULAR VOLUME 87.6 fl (80.0-96.0); PLATELET COUNT, AUTOMATED 583 10^3/uL (150-450)
[2020-02-11 06:00] VITALS: BP 159/90
[2020-02-11 06:10] LABS: BLOOD UREA NITROGEN 3 MG/DL (7-18); CALCIUM LEVEL 8.2 MG/DL (8.5-10.1); CARBON DIOXIDE LEVEL 29 MEQ/L (21-32); CHLORIDE LEVEL 106 MEQ/L (98-107); GLOMERULAR FILTRATION RATE > 60.0 (>60); GLUCOSE, FASTING 94 MG/DL (70-100); POTASSIUM SERUM 3.8 MEQ/L (3.5-5.1); SODIUM LEVEL 139 MEQ/L (136-145)
[2020-02-11] MEDS: NS 1,000 ML IV SCH ×3 (08:38→20:10)
[2020-02-11 10:00] VITALS: BP 148/89
--- NOTE | 2020-02-11 12:30 | IPNPDOC ---
Text Note Date of Service The patient was seen on 02/11/20. NOTE SUBJECTIVE: -Persistent copious diarrhea, less bloody elements -Abdominal pain has improved -Tolerating diet -had colonoscopy yesterday with Dr. Apodaca OBJECTIVE: Vitals: see below. HDS, afebrile, on room air Gen: NAD Head: NCAT Eyes: PERRLA, EOMI, anicteric, non injected ENT: MMM, no mouth sores Neck: no palpable adenopathy, no JVD Pulm: CTAB Cardiac: RRR, no mrg Abd: mild TTP, normoactive sounds, soft Ext: no LE edema, WWP, 2+ DP pulses Neuro: CN 2-12 intact, moving all extremities Psych: AOx3 Labs: Reviewed. See below for full details. Hgb 9 Cr 0.9 Assessment: 24 yo active man with a recent 2m history of several hospital presentations to [facility] for abdominal pain with associated progressive anemia with slow GIB pending IBD workup with Dr. Fisher in the outpatient setting who presented with acute worsening of abdominal symptoms with copious diarrhea with episodic hematochezia and found to have severe Cdiff colitis, acute on chronic anemia and orthostatic hypotension. C diff colitis: -Continue NS at 100cc/hr -strict I/Os and charting of number of BMs -Discontinue 500mg Q6 PO vanc, after 4 days without remission -start fidaxomicin 200mg BID -Cdiff precautions -zofran 4mg Q6H PRN for nausea -Consulted Dr. Apodaca, had colonoscopy on 02/09 -[id number] morphine IV for severe abdominal pain -IV zofran PRN for nausea -On colonoscopy had severe diffuse ulceration extending from rectum to Splenic flexure. Also noted suspected pseudomembranes, suggestive of severe c. difficile colitis. Fluid aspirate and colon biopsies were done for further evaluation. -Per GI: - If patient develops any ileus, abdominal distention or sepsis, then consider adding rectal vancomycin. - Monitor clinical symptoms in hospital until improvement in bloody diarrhea due to high risk for complications. - Obtain ASCA, ANCA panel and Hepatitis B Surface antibody and quanteferon. - Based on the biopsy results if reported IBD, to consider immunomodulator the rapy after resolution of C. difficile. - Patient to follow up in GI clinic in 4 weeks to review the above results and further management. Acute on chronic anemia: Acute blood loss anemia on chronic JAY. Stable -Daily CBC -goal Hgb >8 DVT ppx: TEDs Dispo: medsurg, inpatient. VS,Fishbone, I+O VS, Fishbone, I+O Laboratory Tests 02/11/20 05:38 Vital Signs Date Time Temp Pulse Resp B/P (MAP) Pulse Ox O2 Delivery O2 Flow Rate FiO2 02/11/20 06:00 99.0 83 18 159/90 (113) 98 Room Air I&O- Last 24 Hours up to 6 AM 02/11/20 06:00 Intake Total 460 ml Output Total 0 ml Balance 460 ml ANATOLIY RAWLS MD Feb 11, 2020 08:58
[2020-02-11] MEDS: FIDAXOMICIN 200 MG TAB (DIFICID) PO SCH ×2 (13:14→20:10)
[2020-02-11 14:00] VITALS: BP 146/80
[2020-02-11] MEDS: ONDANSETRON 4MG/2ML VIAL IV PRN (14:37)
[2020-02-11 22:00] VITALS: BP 135/79
[2020-02-11] MEDS: ACETAMINOPHEN TAB 650MG DOSE (2X325MG) PO PRN (22:00)
[2020-02-12 06:00] VITALS: BP 138/82
[2020-02-12 06:52] LABS: HEMATOCRIT 31.2 % (42.0-52.0); HEMOGLOBIN 9.4 g/dl (13.5-17.5); MEAN CORPUSCULAR HEMOGLOBIN 26.7 pg (27.0-33.0); MEAN CORPUSCULAR HGB CONC 30.1 g/dl (32.0-36.5); MEAN CORPUSCULAR VOLUME 88.6 fl (80.0-96.0); PLATELET COUNT, AUTOMATED 639 10^3/uL (150-450); RED BLOOD COUNT 3.52 10^6/uL (4.30-6.10); WHITE BLOOD COUNT 12.6 10^3/uL (4.0-10.0)
[2020-02-12 06:56] LABS: BLOOD UREA NITROGEN 3 MG/DL (7-18); CALCIUM LEVEL 8.2 MG/DL (8.5-10.1); CARBON DIOXIDE LEVEL 27 MEQ/L (21-32); CHLORIDE LEVEL 107 MEQ/L (98-107); CREATININE FOR GFR 0.81 MG/DL (0.70-1.30); GLOMERULAR FILTRATION RATE > 60.0 (>60); GLUCOSE, FASTING 87 MG/DL (70-100); SODIUM LEVEL 140 MEQ/L (136-145)
[2020-02-12] MEDS: NS 1,000 ML IV SCH ×2 (08:23→16:33)
[2020-02-12] MEDS: FIDAXOMICIN 200 MG TAB (DIFICID) PO SCH ×2 (08:23→20:14)
[2020-02-12] MEDS ORDERED: IRON SUCROSE 100MG 5ML VIAL (J1756 PER 1MG) IV SCH (09:00)
--- NOTE | 2020-02-12 10:32 | IPNPDOC ---
Text Note Date of Service The patient was seen on 02/12/20. NOTE SUBJECTIVE: -This morning so far had 2 BMs, starting to be formed, after switch to fidaxomicin -Abdominal pain has improved -Tolerating diet OBJECTIVE: Vitals: see below. HDS, afebrile, on room air Gen: NAD Head: NCAT Eyes: PERRLA, EOMI, anicteric, non injected ENT: MMM, no mouth sores Neck: no palpable adenopathy, no JVD Pulm: CTAB Cardiac: RRR, no mrg Abd: mild TTP, normoactive sounds, soft Ext: no LE edema, WWP, 2+ DP pulses Neuro: CN 2-12 intact, moving all extremities Psych: AOx3 Labs: Reviewed. See below for full details. WBC 12.6 Hgb 9.4 Cr 0.81 Ferritin 12 Assessment: 24 yo active man with a recent 2m history of several hospital presentations to [facility] hospitals for abdominal pain with associated progressive anemia with slow GIB pending IBD workup with Dr. Fisher in the outpatient setting who presented with acute worsening of abdominal symptoms with copious diarrhea with episodic hematochezia and found to have severe Cdiff colitis, acute on chronic anemia and orthostatic hypotension. C diff colitis: -Continue NS at 100cc/hr -strict I/Os and charting of number of BMs -Discontinued 500mg Q6 PO vanc, after 4 days without remission -started fidaxomicin 200mg BID, day 2 -Cdiff precautions -zofran 4mg Q6H PRN for nausea -Consulted Dr. Apodaca, had colonoscopy on 02/09 -[id number] morphine IV for severe abdominal pain -IV zofran PRN for nausea -On colonoscopy had severe diffuse ulceration extending from rectum to Splenic flexure. Also noted suspected pseudomembranes, suggestive of severe c. difficile colitis. Fluid aspirate and colon biopsies were done for further evaluation. -Per GI: - If patient develops any ileus, abdominal distention or sepsis, then consider adding rectal vancomycin. - Monitor clinical symptoms in hospital until improvement in bloody diarrhea due to high risk for complications. - Obtain ASCA, ANCA panel and Hepatitis B Surface antibody and quanteferon. - Based on the biopsy results if reported IBD, to consider immunomodulator therapy after resolution of C. difficile. - Patient to follow up in GI clinic in 4 weeks to review the above results and further management. Acute on chronic anemia: Acute blood loss anemia on chronic JAY. Stable -Daily CBC -goal Hgb >8 -Ferritin was 12, will give IV iron today and plan will be to discharge him home likely tomorrow with PO iron. DVT ppx: TEDs Dispo: medsurg, inpatient. Plan is for discharge tomorrow if BMs continue to be formed and frequency diminishes. He is receiving 1 dose of IV iron and plan is for home with iron drops up to 325mg/day because he did not tolerate iron sulfate pills before. He is to follow up with GI within 4 weeks and PCP within 1 week for resolution of Cdiff. VS,Fishbone, I+O VS, Fishbone, I+O Laboratory Tests 02/12/20 06:08 Vital Signs Date Time Temp Pulse Resp B/P (MAP) Pulse Ox O2 Delivery O2 Flow Rate FiO2 02/12/20 06:00 98.8 88 16 138/82 (100) 99 Room Air I&O- Last 24 Hours up to 6 AM 02/12/20 06:00 Intake Total 1200 ml Output Total 0 ml Balance 1200 ml ANATOLIY RAWLS MD Feb 12, 2020 09:00
[2020-02-12 10:40] VITALS: BP 141/84
[2020-02-12] MEDS ORDERED: IRON SUCROSE 100 MG in NS 100 ML OVER 1 HR IV SCH (11:00)
[2020-02-12 11:55] VITALS: BP 139/86
[2020-02-12 14:00] VITALS: BP 139/89
[2020-02-12 22:00] VITALS: BP 146/92
[2020-02-13] MEDS: NS 1,000 ML IV SCH (02:10)
[2020-02-13 06:00] VITALS: BP 141/90
[2020-02-13] MEDS: FIDAXOMICIN 200 MG TAB (DIFICID) PO SCH ×2 (09:33→21:00)
--- NOTE | 2020-02-13 13:28 | IPN ---
DATE: 02/13/2020 SUBJECTIVE: Eric is a 24-year-old admitted with severe C difficile colitis slowly responding to his current treatment. He is still on intravenous (IV) fluids, as well as fidaxomicin 200 mg b.i.d. He is having crampy abdominal pain, still occasional rectal bleeding, and loose stool. The frequency of stooling has decreased, but still significant. He is also iron deficient and has received intravenous iron. OBJECTIVE: VITAL SIGNS: Blood pressure 141/90, pulse 93, respiratory rate 16, O2 saturation 97%. GENERAL APPEARANCE: Alert, conversant, and in no distress. Clutching his abdomen as he walks. LUNGS: Clear. HEART: Rhythm regular. ABDOMEN: Soft. Diffusely tender particularly the left lower quadrant. Mildly distended. Bowel sounds are present. EXTREMITIES: No clubbing, cyanosis, or edema. LABORATORY DATA: White count is 12.6, hemoglobin 9.4, platelets 639,000. Sodium 140, potassium 4.0, BUN 3, creatinine 0.8, glucose 87 those look like they are both labs from yesterday and I do not think he had any labs ordered for today. ASSESSMENT AND PLAN: 1. Severe Clostridium difficile colitis. His abdomen is still quite tender on exam, and he is having crampy abdominal pain with still passing some blood. I think he needs another day in the hospital and he agrees to this. Continue his Dificid, as well as intravenous (IV) fluids. I have ordered labs for the morning, and hopefully he will be stable for discharge tomorrow. 2. Iron deficiency anemia. He will need some liquid iron preparation upon discharge. He is not tolerant of iron tablets. [facility]
[2020-02-13 14:00] VITALS: BP 139/90
[2020-02-13] MEDS ORDERED: ONDANSETRON 4 MG TAB PO PRN (17:00)
[2020-02-13] MEDS ORDERED: PREPARATION H SUPP (HEMORRHOID) PR PRN (20:30)
[2020-02-13 22:00] VITALS: BP 139/91
[2020-02-14 06:00] VITALS: BP 147/89
[2020-02-14 06:37] LABS: BASO # 0.1 10^3/uL (0.0-0.2); BASO % 0.6 % (0.0-1.0); EOS # 0.6 10^3/uL (0.0-0.5); HEMATOCRIT 30.3 % (42.0-52.0); HEMOGLOBIN 9.4 g/dl (13.5-17.5); LYMPH # 2.4 10^3/uL (1.5-5.0); LYMPH % 21.5 % (24.0-44.0); MEAN CORPUSCULAR HEMOGLOBIN 27.1 pg (27.0-33.0); MEAN CORPUSCULAR VOLUME 87.3 fl (80.0-96.0); MONO # 0.8 10^3/uL (0.0-0.8); MONO % 7.5 % (0.0-5.0); NEUTROPHILS # 7.2 10^3/uL (1.5-8.5); NEUTROPHILS % 64.9 % (36.0-66.0); PLATELET COUNT, AUTOMATED 672 10^3/uL (150-450); RED BLOOD COUNT 3.47 10^6/uL (4.30-6.10); WHITE BLOOD COUNT 11.2 10^3/uL (4.0-10.0)
[2020-02-14 07:00] LABS: BLOOD UREA NITROGEN 6 MG/DL (7-18); CARBON DIOXIDE LEVEL 29 MEQ/L (21-32); CHLORIDE LEVEL 105 MEQ/L (98-107); CREATININE FOR GFR 0.82 MG/DL (0.70-1.30); GLOMERULAR FILTRATION RATE > 60.0 (>60); GLUCOSE, FASTING 87 MG/DL (70-100); POTASSIUM SERUM 4.1 MEQ/L (3.5-5.1); SODIUM LEVEL 139 MEQ/L (136-145)
[2020-02-14] MEDS: ACETAMINOPHEN TAB 650MG DOSE (2X325MG) PO PRN (09:37)
[2020-02-14] MEDS: FIDAXOMICIN 200 MG TAB (DIFICID) PO SCH ×2 (09:37→20:03)
[2020-02-14] MEDS: MESALAMINE 400 MG CAPSULE DELAYED RELEASE (DELZICOL) PO SCH ×3 (11:22→20:03)
[2020-02-14] MEDS: MESALAMINE 1,000 MG SUPP PR SCH (11:22)
[2020-02-14 14:00] VITALS: BP 122/78
--- NOTE | 2020-02-14 19:38 | IPNPDOC ---
Date Seen The patient was seen on 02/14/20. Progress Note SUBJECTIVE: 8-10 watery, bloody BMs over past several days. N/V and rectal bleeding persists, 4 total that day nurse noted. Discussed with Dr. Gonzalez, started mesalamine TN and PO TID. WBC improving despite abd discomfort. Denies chest pain, sob, fevers or chills. OBJECTIVE: Vitals: Please see below Gen: NAD, resting in bed Head: NCAT Eyes: PERRLA, EOMI, anicteric, non injected ENT: MMM, no mouth sores Neck: no palpable adenopathy, no JVD Pulm: CTAB Cardiac: RRR, no mrg Abd: mild TTP in b/l lower quadrants , normoactive sounds, soft Ext: no LE edema, WWP, 2+ DP pulses Neuro: CN 2-12 intact, moving all extremities Psych: AOx3 Laboratory: Please see below Assessment: 24 yo active man with a recent 2m history of several hospital presentations to [facility] for abdominal pain with associated progressive anemia with slow GIB pending IBD workup with Dr. Fisher in the outpatient setting who presented with acute worsening of abdominal symptoms with copious diarrhea with episodic hematochezia and found to have severe Cdiff colitis, acute on chronic anemia. Plan: Abdominal pain, hematochezia likely 2/2 to C diff colitis, cannot rule out IBD based off findings on colonoscopy -8-10 bloody bowel movements persist daily -N/V with continued mild lower quadrant abd pain -S/p colonoscopy on 02/09 -Discontinued 500mg Q6 PO vanc, after 4 days without remission -F/u ASCA, ANCA panel -Started mesalamine PO and TN today -C/w fidaxomicin 200mg BID, c.diff precautions, zofran 4mg Q6H PRN for nausea, pain control. -Dr. Gonzalez following closely. Plan is f/u quantiferon studies, immuno studies. If blood stool persist and labs neg, consider starting steroids plus immunosuppressive therapy. Acute on chronic anemia: Acute blood loss anemia on chronic JAY. Stable -Daily CBC, s/p IV iron -goal Hgb >8 -Ferritin was 12 -Resume PO ferrous sulfate when able to keep down and hematochezia slows down. Has failed iron pills in past DVT ppx -TEDs DISPOSITION: Dr. gonzalez following closely. Plan is discharge home when medically improved. VS, I&O, 24H, Fishbone Vital Signs/I&O Vital Signs Date Time Temp Pulse Resp B/P (MAP) Pulse Ox O2 Delivery O2 Flow Rate FiO2 02/14/20 14:00 98.7 97 18 122/78 (93) 94 Room Air I&O- Last 24 Hours up to 6 AM 02/14/20 06:00 Intake Total 2570 ml Output Total 0 ml Balance 2570 ml Laboratory Data 24H LABS Laboratory Tests 2 02/14/20 06:03: Immature Granulocyte % (Auto) 0.5, Neutrophils (%) (Auto) 64.9, Lymphocytes (%) (Auto) 21.5L, Monocytes (%) (Auto) 7.5H, Eosinophils (%) (Auto) 5.0H, Basophils (%) (Auto) 0.6, Neutrophils # (Auto) 7.2, Lymphocytes # (Auto) 2.4, Monocytes # (Auto) 0.8, Eosinophils # (Auto) 0.6H, Basophils # (Auto) 0.1, Nucleated Red Blood Cells % (auto) 0.0, Anion Gap 5L, Glomerular Filtration Rate > 60.0, Calcium Level 9.0 CBC/BMP Laboratory Tests 02/14/20 06:03 Microbiology Microbiology 02/07/20 Campylobacter (PCR) - Final, Complete 02/07/20 Clostridium difficile Toxin A&B PCR - Final, Complete 02/07/20 Plesiomonas shigelloides (PCR) - Final, Complete 02/07/20 Salmonella (PCR)(RED) - Final, Complete 02/07/20 Vibrio Species (PCR) - Final, Complete 02/07/20 Vibrio Cholerae (PCR) - Final, Complete 02/07/20 Yersinia enterocolitica (PCR) - Final, Complete 02/07/20 Enteroaggregative E. coli (PCR) - Final, Complete 02/07/20 Enteropathogenic E. coli (PCR) - Final, Complete 02/07/20 Enterotoxigenic E. coli (PCR) - Final, Complete 02/07/20 E. coli Shiga-like Toxin (PCR) - Final, Complete 02/07/20 Escherichia coli 0157 (PCR) - Final, Complete 02/07/20 Enteroinvasive E. coli/Shigella PCR - Final, Complete 02/07/20 Cryptosporidium (PCR) - Final, Complete 02/07/20 Cyclospora cayetanensis (PCR) - Final, Complete 02/07/20 Entamoeba histolytica (PCR) - Final, Complete 02/07/20 Giardia lamblia (PCR) - Final, Complete 02/07/20 Adenovirus Type F 40/41 (PCR) - Final, Complete 02/07/20 Astrovirus (PCR) - Final, Complete 02/07/20 Norovirus GI/GII (PCR) - Final, Complete 02/07/20 Rotavirus A (PCR) - Final, Complete 02/07/20 Sapovirus I/II/IV/V (PCR) - Final, Complete Current Medications Current Medications Medications (Trade) Dose Ordered Sig/Luigi Route PRN Reason Start Time Stop Time Status Last Admin Dose Admin Acetaminophen (Tylenol Tab) 650 mg Q6HP PRN PO PAIN / FEVER 02/11/20 21:30 02/14/20 09:37 Fidaxomicin (Dificid) 200 mg Q12H PO 02/11/20 09:00 02/14/20 09:37 Home Med (Med Rec Complete!) ASDIRECTED XX 02/07/20 18:15 02/07/20 18:14 DC Home Med (Med Rec Complete!) ASDIRECTED XX 02/07/20 18:15 02/07/20 18:19 DC Iron (Venofer) 100 mg DAILY IV 02/12/20 09:00 02/13/20 10:00 UNV Iron 100 mg/ Sodium Chloride 105 ml @ 105 mls/hr Q24H IV 02/12/20 11:00 02/12/20 11:59 DC 02/12/20 10:33 Mesalamine (Delzicol) 1,600 mg TID PO 02/14/20 09:00 02/14/20 16:19 Mesalamine (Rowasa, Canasa) 1,000 mg DAILY TN 02/14/20 09:00 02/14/20 11:22 Morphine Sulfate (Morphine Sulfate Inj) 2 mg Q4HP PRN IV MODERATE PAIN (PS 5-7) 02/08/20 17:45 02/09/20 08:42 DC 02/08/20 17:57 Morphine Sulfate (Morphine Sulfate Inj) 2 mg Q4HP PRN IV MODERATE PAIN (PS 5-7) 02/09/20 11:45 Cancel Ondansetron HCl (ZOFRAN INJection) 4 mg Q6HP PRN IV NAUSEA OR VOMITING 02/07/20 18:15 02/13/20 16:56 DC 02/11/20 14:37 Ondansetron HCl (Zofran) 4 mg Q6HP PRN PO NAUSEA OR VOMITING 02/13/20 17:00 Phenylephrine HCl (Preparation H Supp) 1 sup QIDP PRN TN PAIN OR DISCOMFORT 02/13/20 20:30 Sodium Chloride 1,000 ml @ 100 mls/hr Q10H IV 02/07/20 18:07 02/09/20 08:41 DC 02/09/20 05:48 Sodium Chloride 1,000 ml @ 100 mls/hr Q10H IV 02/09/20 11:45 02/13/20 13:23 DC 02/13/20 02:10 Tramadol HCl (Ultram) 50 mg Q8HP PRN PO MODERATE PAIN (PS 5-7) 02/09/20 08:45 02/09/20 11:22 DC Vancomycin HCl (First-Vancomycin 50(Firvanq)- 250mg/5ml) 250 mg QID@00,06,12,18 PO 02/08/20 00:00 02/08/20 13:31 DC 02/08/20 13:00 Vancomycin HCl (First-Vancomycin 50(Firvanq)- 250mg/5ml) 500 mg Q6H PO 02/08/20 18:00 02/11/20 12:28 DC 02/11/20 05:59 Allergies Coded Allergies: No Known Drug Allergies (Verified Allergy, Unknown, 08/02/19) Francy Castro MD Feb 14, 2020 19:38
[2020-02-14 22:00] VITALS: BP 135/85
[2020-02-15 06:00] VITALS: BP 128/79
[2020-02-15 06:31] LABS: BASO # 0.1 10^3/uL (0.0-0.2); BASO % 0.7 % (0.0-1.0); EOS # 0.6 10^3/uL (0.0-0.5); EOS % 4.1 % (0.0-3.0); HEMATOCRIT 32.2 % (42.0-52.0); HEMOGLOBIN 9.8 g/dl (13.5-17.5); LYMPH # 3.3 10^3/uL (1.5-5.0); LYMPH % 22.4 % (24.0-44.0); MEAN CORPUSCULAR HEMOGLOBIN 26.3 pg (27.0-33.0); MEAN CORPUSCULAR HGB CONC 30.4 g/dl (32.0-36.5); MEAN CORPUSCULAR VOLUME 86.6 fl (80.0-96.0); MONO # 1.1 10^3/uL (0.0-0.8); MONO % 7.3 % (0.0-5.0); NEUTROPHILS # 9.7 10^3/uL (1.5-8.5); PLATELET COUNT, AUTOMATED 749 10^3/uL (150-450); RED BLOOD COUNT 3.72 10^6/uL (4.30-6.10); WHITE BLOOD COUNT 14.9 10^3/uL (4.0-10.0)
[2020-02-15 06:52] LABS: BLOOD UREA NITROGEN 9 MG/DL (7-18); CALCIUM LEVEL 9.2 MG/DL (8.5-10.1); CARBON DIOXIDE LEVEL 27 MEQ/L (21-32); CHLORIDE LEVEL 105 MEQ/L (98-107); CREATININE FOR GFR 0.86 MG/DL (0.70-1.30); GLOMERULAR FILTRATION RATE > 60.0 (>60); GLUCOSE, FASTING 96 MG/DL (70-100); POTASSIUM SERUM 3.9 MEQ/L (3.5-5.1); SODIUM LEVEL 137 MEQ/L (136-145)
[2020-02-15] MEDS: FIDAXOMICIN 200 MG TAB (DIFICID) PO SCH ×2 (09:41→20:03)
[2020-02-15] MEDS: MESALAMINE 1,000 MG SUPP PR SCH (09:41)
[2020-02-15] MEDS: MESALAMINE 400 MG CAPSULE DELAYED RELEASE (DELZICOL) PO SCH ×3 (09:41→20:03)
[2020-02-15 14:00] VITALS: BP 138/78
[2020-02-15 16:08] LABS: ANCA-ATYPICAL <1:20 titer (Neg:<1:20); ANTI-SACCHAROMYCES CEREV. IgA <20.0 Units (0.0-24.9); ANTI-SACCHAROMYCES CEREV. IgG <20.0 Units (0.0-24.9); CYTOPLASMIC NEUTROP AB ANCA-C <1:20 titer (Neg:<1:20); PERINUCLEAR AB ANCA-P <1:20 titer (Neg:<1:20)
--- NOTE | 2020-02-15 17:06 | IPNPDOC ---
Date Seen The patient was seen on 02/15/20. Progress Note SUBJECTIVE: Patient states that he had <6 bowel movements yesterday with only 1-2 recorded. Doing well with current medication regimen. Less bloody stool. H/H remains stable, goal Hgb >8. Discussed with Dr. Apodaca, will see again today. Denies chest pain, sob, fevers or chills. OBJECTIVE: Vitals: Please see below Gen: NAD, resting in bed Head: NCAT Eyes: PERRLA, EOMI, anicteric, non injected ENT: MMM, no mouth sores Neck: no palpable adenopathy, no JVD Pulm: CTAB Cardiac: RRR, no mrg Abd: mild TTP in b/l lower quadrants persists , normoactive sounds, soft Ext: no LE edema, WWP, 2+ DP pulses Neuro: CN 2-12 intact, moving all extremities Psych: AOx3 Laboratory: Please see below Assessment: 24 yo active man with a recent 2m history of several hospital presentations to [facility] for abdominal pain with associated progressive anemia with slow GIB pending IBD workup with Dr. Fisher in the outpatient setting who presented with acute worsening of abdominal symptoms with copious diarrhea with episodic hematochezia and found to have severe Cdiff colitis, acute on chronic anemia. Plan: Abdominal pain, hematochezia likely 2/2 to C diff colitis, cannot rule out IBD -<6 bloody bowel movements yesterday, improving slowly with currently medications -WBC 14K, may be reactive, afebrile -S/p colonoscopy on 02/09 -Discontinued 500mg Q6 PO vanc, after 4 days without remission -ASCA, ANCA panel neg -C/w mesalamine PO and NV, fidaxomicin 200mg BID, c.diff precautions, zofran 4mg Q6H PRN for nausea, pain control. -Dr. Apodaca following closely. If blood stool persist and labs neg, he may consider starting steroids plus immunosuppressive therapy. F/u GI recommendation Acute on chronic anemia: Acute blood loss anemia on chronic JAY. Stable -Daily CBC, s/p IV iron -goal Hgb >8 -Ferritin was 12 -Resume PO ferrous sulfate when able to keep down and hematochezia slows down. Has failed iron pills in past DVT ppx -TEDs DISPOSITION: Dr. Apodaca following closely. Plan is discharge home when medically improved. VS, I&O, 24H, Fishbone Vital Signs/I&O Vital Signs Date Time Temp Pulse Resp B/P (MAP) Pulse Ox O2 Delivery O2 Flow Rate FiO2 02/15/20 14:00 98.7 96 18 138/78 (98) 96 Room Air I&O- Last 24 Hours up to 6 AM 02/15/20 06:00 Intake Total 1260 ml Output Total 0 ml Balance 1260 ml Laboratory Data 24H LABS Laboratory Tests 2 02/14/20 20:14: 02/15/20 06:10: Immature Granulocyte % (Auto) 0.5, Neutrophils (%) (Auto) 65.0, Lymphocytes (%) (Auto) 22.4L, Monocytes (%) (Auto) 7.3H, Eosinophils (%) (Auto) 4.1H, Basophils (%) (Auto) 0.7, Neutrophils # (Auto) 9.7H, Lymphocytes # (Auto) 3.3, Monocytes # (Auto) 1.1H, Eosinophils # (Auto) 0.6H, Basophils # (Auto) 0.1, Nucleated Red Blood Cells % (auto) 0.0, Anion Gap 5L, Glomerular Filtration Rate > 60.0, Calcium Level 9.2 CBC/BMP Laboratory Tests 02/15/20 06:10 Microbiology Microbiology 02/07/20 Campylobacter (PCR) - Final, Complete 02/07/20 Clostridium difficile Toxin A&B PCR - Final, Complete 02/07/20 Plesiomonas shigelloides (PCR) - Final, Complete 02/07/20 Salmonella (PCR)(RED) - Final, Complete 02/07/20 Vibrio Species (PCR) - Final, Complete 02/07/20 Vibrio Cholerae (PCR) - Final, Complete 02/07/20 Yersinia enterocolitica (PCR) - Final, Complete 02/07/20 Enteroaggregative E. coli (PCR) - Final, Complete 02/07/20 Enteropathogenic E. coli (PCR) - Final, Complete 02/07/20 Enterotoxigenic E. coli (PCR) - Final, Complete 02/07/20 E. coli Shiga-like Toxin (PCR) - Final, Complete 02/07/20 Escherichia coli 0157 (PCR) - Final, Complete 02/07/20 Enteroinvasive E. coli/Shigella PCR - Final, Complete 02/07/20 Cryptosporidium (PCR) - Final, Complete 02/07/20 Cyclospora cayetanensis (PCR) - Final, Complete 02/07/20 Entamoeba histolytica (PCR) - Final, Complete 02/07/20 Giardia lamblia (PCR) - Final, Complete 02/07/20 Adenovirus Type F 40/41 (PCR) - Final, Complete 02/07/20 Astrovirus (PCR) - Final, Complete 02/07/20 Norovirus GI/GII (PCR) - Final, Complete 02/07/20 Rotavirus A (PCR) - Final, Complete 02/07/20 Sapovirus I/II/IV/V (PCR) - Final, Complete Current Medications Current Medications Medications (Trade) Dose Ordered Sig/Luigi Route PRN Reason Start Time Stop Time Status Last Admin Dose Admin Acetaminophen (Tylenol Tab) 650 mg Q6HP PRN PO PAIN / FEVER 02/11/20 21:30 02/14/20 09:37 Fidaxomicin (Dificid) 200 mg Q12H PO 02/11/20 09:00 02/15/20 09:41 Home Med (Med Rec Complete!) ASDIRECTED XX 02/07/20 18:15 02/07/20 18:14 DC Home Med (Med Rec Complete!) ASDIRECTED XX 02/07/20 18:15 02/07/20 18:19 DC Iron (Venofer) 100 mg DAILY IV 02/12/20 09:00 02/13/20 10:00 UNV Iron 100 mg/ Sodium Chloride 105 ml @ 105 mls/hr Q24H IV 02/12/20 11:00 02/12/20 11:59 DC 02/12/20 10:33 Mesalamine (Delzicol) 1,600 mg TID PO 02/14/20 09:00 02/15/20 16:36 Mesalamine (Rowasa, Canasa) 1,000 mg DAILY NV 02/14/20 09:00 02/15/20 09:41 Morphine Sulfate (Morphine Sulfate Inj) 2 mg Q4HP PRN IV MODERATE PAIN (PS 5-7) 02/08/20 17:45 02/09/20 08:42 DC 02/08/20 17:57 Morphine Sulfate (Morphine Sulfate Inj) 2 mg Q4HP PRN IV MODERATE PAIN (PS 5-7) 02/09/20 11:45 Cancel Ondansetron HCl (ZOFRAN INJection) 4 mg Q6HP PRN IV NAUSEA OR VOMITING 02/07/20 18:15 02/13/20 16:56 DC 02/11/20 14:37 Ondansetron HCl (Zofran) 4 mg Q6HP PRN PO NAUSEA OR VOMITING 02/13/20 17:00 Phenylephrine HCl (Preparation H Supp) 1 sup QIDP PRN NV PAIN OR DISCOMFORT 02/13/20 20:30 Sodium Chloride 1,000 ml @ 100 mls/hr Q10H IV 02/07/20 18:07 02/09/20 08:41 DC 02/09/20 05:48 Sodium Chloride 1,000 ml @ 100 mls/hr Q10H IV 02/09/20 11:45 02/13/20 13:23 DC 02/13/20 02:10 Tramadol HCl (Ultram) 50 mg Q8HP PRN PO MODERATE PAIN (PS 5-7) 02/09/20 08:45 02/09/20 11:22 DC Vancomycin HCl (First-Vancomycin 50(Firvanq)- 250mg/5ml) 250 mg QID@00,06,12,18 PO 02/08/20 00:00 02/08/20 13:31 DC 02/08/20 13:00 Vancomycin HCl (First-Vancomycin 50(Firvanq)- 250mg/5ml) 500 mg Q6H PO 02/08/20 18:00 02/11/20 12:28 DC 02/11/20 05:59 Allergies Coded Allergies: No Known Drug Allergies (Verified Allergy, Unknown, 08/02/19) Francy Castro MD Feb 15, 2020 17:06
[2020-02-15] MEDS: ACETAMINOPHEN TAB 650MG DOSE (2X325MG) PO PRN (21:28)
[2020-02-15 22:00] VITALS: BP 132/85
[2020-02-16 06:00] VITALS: BP 133/85
[2020-02-16 08:18] LABS: BASO # 0.1 10^3/uL (0.0-0.2); BASO % 0.5 % (0.0-1.0); EOS # 0.5 10^3/uL (0.0-0.5); HEMATOCRIT 35.1 % (42.0-52.0); HEMOGLOBIN 10.5 g/dl (13.5-17.5); LYMPH # 2.6 10^3/uL (1.5-5.0); LYMPH % 16.6 % (24.0-44.0); MEAN CORPUSCULAR HEMOGLOBIN 26.1 pg (27.0-33.0); MEAN CORPUSCULAR HGB CONC 29.9 g/dl (32.0-36.5); MEAN CORPUSCULAR VOLUME 87.3 fl (80.0-96.0); MONO % 6.1 % (0.0-5.0); NEUTROPHILS # 11.6 10^3/uL (1.5-8.5); NEUTROPHILS % 73.2 % (36.0-66.0); PLATELET COUNT, AUTOMATED 804 10^3/uL (150-450); RED BLOOD COUNT 4.02 10^6/uL (4.30-6.10); WHITE BLOOD COUNT 15.9 10^3/uL (4.0-10.0)
[2020-02-16 08:38] LABS: BLOOD UREA NITROGEN 10 MG/DL (7-18); CALCIUM LEVEL 9.5 MG/DL (8.5-10.1); CARBON DIOXIDE LEVEL 28 MEQ/L (21-32); CHLORIDE LEVEL 102 MEQ/L (98-107); CREATININE FOR GFR 0.95 MG/DL (0.70-1.30); GLOMERULAR FILTRATION RATE > 60.0 (>60); GLUCOSE, FASTING 94 MG/DL (70-100); POTASSIUM SERUM 4.3 MEQ/L (3.5-5.1); SODIUM LEVEL 137 MEQ/L (136-145)
[2020-02-16] MEDS: MESALAMINE 1,000 MG SUPP PR SCH (10:15)
[2020-02-16] MEDS: MESALAMINE 400 MG CAPSULE DELAYED RELEASE (DELZICOL) PO SCH ×3 (10:15→20:24)
[2020-02-16] MEDS: FIDAXOMICIN 200 MG TAB (DIFICID) PO SCH ×2 (10:15→20:23)
--- NOTE | 2020-02-16 12:47 | IPNPDOC ---
Date Seen The patient was seen on 02/16/20. Progress Note SUBJECTIVE: 6 bowel movements, slightly bloody per patient. Fever 100.8, persistent lower abd discomfort 6/10 on pain scale, diaphoretic overnight with sweating. WBC slightly increased. CT abd/pelvis with contrast, blood cultures, UA ordered and will f/u results. Denies chest pain, sob, fevers or chills. OBJECTIVE: Vitals: Please see below Gen: NAD, resting in bed Head: NCAT Eyes: PERRLA, EOMI, anicteric, non injected ENT: MMM, no mouth sores Neck: no palpable adenopathy, no JVD Pulm: CTAB Cardiac: RRR, no mrg Abd: mild TTP in b/l lower quadrants persists , normoactive sounds, soft Ext: no LE edema, WWP, 2+ DP pulses Neuro: CN 2-12 intact, moving all extremities Psych: AOx3 Laboratory: Please see below Assessment: 24 yo active man with a recent 2m history of several hospital presentations to [facility] for abdominal pain with associated progressive anemia with slow GIB pending IBD workup with Dr. Fisher in the outpatient setting who presented with acute worsening of abdominal symptoms with copious diarrhea with episodic hematochezia and found to have severe Cdiff colitis, acute on chronic anemia. Plan: Abdominal pain, hematochezia likely 2/2 to C diff colitis, cannot rule out IBD -<6 bloody bowel movements yesterday, WBC slightly worsened, febrile overnight 100.8F -S/p colonoscopy on 02/09 -Discontinued 500mg Q6 PO vanc, after 4 days without remission -ASCA, ANCA panel neg -CT abd/pelvis with contrast today to r/o abscess, toxic megacolon. -C/w mesalamine PO and GA, fidaxomicin 200mg BID, c.diff precautions, zofran 4mg Q6H PRN for nausea, pain control. -Dr. Apodaca following closely. Acute on chronic anemia: Acute blood loss anemia on chronic JAY. Stable -Daily CBC, s/p IV iron -goal Hgb >8 -Ferritin was 12 -Resume PO ferrous sulfate when able to keep down and hematochezia slows down. Has failed iron pills in past DVT ppx -TEDs DISPOSITION: Dr. Apodaca following closely. Plan is discharge home when medically improved. VS, I&O, 24H, [place] Vital Signs/I&O Vital Signs Date Time Temp Pulse Resp B/P (MAP) Pulse Ox O2 Delivery O2 Flow Rate FiO2 02/16/20 06:00 98.9 75 16 133/85 (101) 98 Room Air I&O- Last 24 Hours up to 6 AM 02/16/20 05:59 Intake Total 660 ml Output Total 0 ml Balance 660 ml Laboratory Data 24H LABS Laboratory Tests 2 02/16/20 08:01: Immature Granulocyte % (Auto) 0.6, Neutrophils (%) (Auto) 73.2H, Lymphocytes (%) (Auto) 16.6L, Monocytes (%) (Auto) 6.1H, Eosinophils (%) (Auto) 3.0, Basophils (%) (Auto) 0.5, Neutrophils # (Auto) 11.6H, Lymphocytes # (Auto) 2.6, Monocytes # (Auto) 1.0H, Eosinophils # (Auto) 0.5, Basophils # (Auto) 0.1, Nucleated Red Blood Cells % (auto) 0.0, Anion Gap 7L, Glomerular Filtration Rate > 60.0, Calcium Level 9.5 CBC/BMP Laboratory Tests 02/16/20 08:01 Microbiology Microbiology 02/07/20 Campylobacter (PCR) - Final, Complete 02/07/20 Clostridium difficile Toxin A&B PCR - Final, Complete 02/07/20 Plesiomonas shigelloides (PCR) - Final, Complete 02/07/20 Salmonella (PCR)(RED) - Final, Complete 02/07/20 Vibrio Species (PCR) - Final, Complete 02/07/20 Vibrio Cholerae (PCR) - Final, Complete 02/07/20 Yersinia enterocolitica (PCR) - Final, Complete 02/07/20 Enteroaggregative E. coli (PCR) - Final, Complete 02/07/20 Enteropathogenic E. coli (PCR) - Final, Complete 02/07/20 Enterotoxigenic E. coli (PCR) - Final, Complete 02/07/20 E. coli Shiga-like Toxin (PCR) - Final, Complete 02/07/20 Escherichia coli 0157 (PCR) - Final, Complete 02/07/20 Enteroinvasive E. coli/Shigella PCR - Final, Complete 02/07/20 Cryptosporidium (PCR) - Final, Complete 02/07/20 Cyclospora cayetanensis (PCR) - Final, Complete 02/07/20 Entamoeba histolytica (PCR) - Final, Complete 02/07/20 Giardia lamblia (PCR) - Final, Complete 02/07/20 Adenovirus Type F 40/41 (PCR) - Final, Complete 02/07/20 Astrovirus (PCR) - Final, Complete 02/07/20 Norovirus GI/GII (PCR) - Final, Complete 02/07/20 Rotavirus A (PCR) - Final, Complete 02/07/20 Sapovirus I/II/IV/V (PCR) - Final, Complete Current Medications Current Medications Medications (Trade) Dose Ordered Sig/Luigi Route PRN Reason Start Time Stop Time Status Last Admin Dose Admin Acetaminophen (Tylenol Tab) 650 mg Q6HP PRN PO PAIN / FEVER 02/11/20 21:30 02/15/20 21:28 Fidaxomicin (Dificid) 200 mg Q12H PO 02/11/20 09:00 02/16/20 10:15 Home Med (Med Rec Complete!) ASDIRECTED XX 02/07/20 18:15 02/07/20 18:14 DC Home Med (Med Rec Complete!) ASDIRECTED XX 02/07/20 18:15 02/07/20 18:19 DC Iron (Venofer) 100 mg DAILY IV 02/12/20 09:00 02/13/20 10:00 UNV Iron 100 mg/ Sodium Chloride 105 ml @ 105 mls/hr Q24H IV 02/12/20 11:00 02/12/20 11:59 DC 02/12/20 10:33 Mesalamine (Delzicol) 1,600 mg TID PO 02/14/20 09:00 02/16/20 10:15 Mesalamine (Rowasa, Canasa) 1,000 mg DAILY GA 02/14/20 09:00 02/15/20 09:41 Morphine Sulfate (Morphine Sulfate Inj) 2 mg Q4HP PRN IV MODERATE PAIN (PS 5-7) 02/08/20 17:45 02/09/20 08:42 DC 02/08/20 17:57 Morphine Sulfate (Morphine Sulfate Inj) 2 mg Q4HP PRN IV MODERATE PAIN (PS 5-7) 02/09/20 11:45 Cancel Ondansetron HCl (ZOFRAN INJection) 4 mg Q6HP PRN IV NAUSEA OR VOMITING 02/07/20 18:15 02/13/20 16:56 DC 02/11/20 14:37 Ondansetron HCl (Zofran) 4 mg Q6HP PRN PO NAUSEA OR VOMITING 02/13/20 17:00 Phenylephrine HCl (Preparation H Supp) 1 sup QIDP PRN GA PAIN OR DISCOMFORT 02/13/20 20:30 Sodium Chloride 1,000 ml @ 100 mls/hr Q10H IV 02/07/20 18:07 02/09/20 08:41 DC 02/09/20 05:48 Sodium Chloride 1,000 ml @ 100 mls/hr Q10H IV 02/09/20 11:45 02/13/20 13:23 DC 02/13/20 02:10 Tramadol HCl (Ultram) 50 mg Q8HP PRN PO MODERATE PAIN (PS 5-7) 02/09/20 08:45 02/09/20 11:22 DC Vancomycin HCl (First-Vancomycin 50(Firvanq)- 250mg/5ml) 250 mg QID@00,06,12,18 PO 02/08/20 00:00 02/08/20 13:31 DC 02/08/20 13:00 Vancomycin HCl (First-Vancomycin 50(Firvanq)- 250mg/5ml) 500 mg Q6H PO 02/08/20 18:00 02/11/20 12:28 DC 02/11/20 05:59 Allergies Coded Allergies: No Known Drug Allergies (Verified Allergy, Unknown, 08/02/19) Francy Castro MD Feb 16, 2020 12:47
[2020-02-16] MEDS: GASTROGRAFIN SOLUTION 30ML PO SCH ×2 (13:35→13:50)
[2020-02-16 14:00] VITALS: BP 138/85
[2020-02-16] MEDS ORDERED: ISOVUE-370 76% 100ML VIAL As Ordered ONE (15:00)
--- NOTE | 2020-02-16 15:38 | REPVR ---
PROCEDURE INFORMATION: Exam: CT Abdomen With Contrast Exam date and time: 02/16/2020 3:01 PM Age: 24 years old Clinical indication: Abdominal pain; Generalized; Additional info: R/O abscess, toxic megacolon TECHNIQUE: Imaging protocol: Computed tomography images of the abdomen with intravenous contrast. Radiation optimization: All CT scans at this facility use at least one of these dose optimization techniques: automated exposure control; mA and/or kV adjustment per patient size (includes targeted exams where dose is matched to clinical indication); or iterative reconstruction. Contrast material: ISOVUE 370; Contrast volume: 100 ml; Contrast route: INTRAVENOUS (IV); COMPARISON: CT ABD/PEL W/IV CONTRAST ONLY 02/07/2020 3:23 PM FINDINGS: Liver: A minor arterial phase perfusion defect of the hepatic left lobe medial segment is noted adjacent to the falciform ligament fissure, a normal variant. 4.9 mm right lobe hepatic segment 6/7 hypodensity, stable. No specific followup required/recommended. Gallbladder and bile ducts: Normal. No calcified stones. No ductal dilation. Pancreas: Normal. No ductal dilation. Spleen: Normal. No splenomegaly. Adrenals: Normal. No mass. Kidneys and ureters: Normal. No hydronephrosis. Stomach and bowel: Mild-moderate pancolonic wall thickening, with pericolonic induration and pericolonic hypervascularity. No obstruction. Appendix: The vermiform appendix is normal. Intraperitoneal space: Unremarkable. No free air. No significant fluid collection. Lymph nodes: Unremarkable. No enlarged lymph nodes. Vasculature: Unremarkable. No abdominal aortic aneurysm. Bladder: The urinary bladder is partially decompressed and somewhat difficult to assess. Bones/joints: Minimal L5-S1 spondylosis. Soft tissues: Unremarkable. Other findings: IMPRESSION: Pancolitis. Clinical correlation to determine the specific etiology is recommended. Electronically signed by: Chris Pride On 02/16/2020 15:38:47 PM
[2020-02-16] MEDS: ACETAMINOPHEN TAB 650MG DOSE (2X325MG) PO PRN (20:24)
[2020-02-16 22:00] VITALS: BP 141/88
[2020-02-17 06:00] VITALS: BP 137/85
[2020-02-17 06:24] LABS: BASO # 0.1 10^3/uL (0.0-0.2); BASO % 0.5 % (0.0-1.0); EOS # 0.5 10^3/uL (0.0-0.5); EOS % 3.4 % (0.0-3.0); HEMATOCRIT 27.5 % (42.0-52.0); HEMOGLOBIN 8.6 g/dl (13.5-17.5); LYMPH # 1.9 10^3/uL (1.5-5.0); MEAN CORPUSCULAR HEMOGLOBIN 26.6 pg (27.0-33.0); MEAN CORPUSCULAR HGB CONC 31.3 g/dl (32.0-36.5); MEAN CORPUSCULAR VOLUME 85.1 fl (80.0-96.0); MONO # 0.9 10^3/uL (0.0-0.8); MONO % 6.8 % (0.0-5.0); NEUTROPHILS # 9.9 10^3/uL (1.5-8.5); NEUTROPHILS % 74.8 % (36.0-66.0); RED BLOOD COUNT 3.23 10^6/uL (4.30-6.10); WHITE BLOOD COUNT 13.3 10^3/uL (4.0-10.0)
[2020-02-17 06:28] LABS: PLATELET COUNT, AUTOMATED 633 10^3/uL (150-450)
[2020-02-17 06:47] LABS: BLOOD UREA NITROGEN 9 MG/DL (7-18); CALCIUM LEVEL 8.9 MG/DL (8.5-10.1); CARBON DIOXIDE LEVEL 26 MEQ/L (21-32); CHLORIDE LEVEL 105 MEQ/L (98-107); CREATININE FOR GFR 0.81 MG/DL (0.70-1.30); GLOMERULAR FILTRATION RATE > 60.0 (>60); GLUCOSE, FASTING 91 MG/DL (70-100); POTASSIUM SERUM 3.8 MEQ/L (3.5-5.1); SODIUM LEVEL 137 MEQ/L (136-145)
[2020-02-17] MEDS: MESALAMINE 1,000 MG SUPP PR SCH (09:41)
[2020-02-17] MEDS: FIDAXOMICIN 200 MG TAB (DIFICID) PO SCH ×2 (09:41→20:21)
[2020-02-17] MEDS: MESALAMINE 400 MG CAPSULE DELAYED RELEASE (DELZICOL) PO SCH ×3 (09:41→20:21)
[2020-02-17 14:00] VITALS: BP 130/81
--- NOTE | 2020-02-17 16:21 | IPNPDOC ---
Date Seen The patient was seen on 02/17/20. Progress Note SUBJECTIVE: 8 BM overnight, bloody. Afebrile. CT abd/pelvis neg for abscess, toxic megacolon but + for pancolitis. BCx neg x 2 sets thus far, starting on prednisone, humira today after discussion with Dr. Apodaca. Denies chest pain, sob, fevers or chills. OBJECTIVE: Vitals: Please see below Gen: NAD, resting in bed Head: NCAT Eyes: PERRLA, EOMI, anicteric, non injected ENT: MMM, no mouth sores Neck: no palpable adenopathy, no JVD Pulm: CTAB Cardiac: RRR, no mrg Abd: mild TTP in b/l lower quadrants persists , normoactive sounds, soft Ext: no LE edema, WWP, 2+ DP pulses Neuro: CN 2-12 intact, moving all extremities Psych: AOx3 Laboratory: Please see below microbiology: BCx x 2 sets: NG at 24 hours UA Neg Assessment: 24 yo active man with a recent 2m history of several hospital presentations to [facility] for abdominal pain with associated progressive anemia with slow GIB pending IBD workup with Dr. Fisher in the outpatient setting who presented with acute worsening of abdominal symptoms with copious diarrhea with episodic hematochezia and found to have severe Cdiff colitis, acute on chronic anemia, pancolitis cannot r/o IBD Plan: Abdominal pain, hematochezia likely 2/2 to C diff colitis, cannot rule out IBD -8 bloody bowel movements overnight, WBC slightly worsened, febrile overnight 100.8F -S/p colonoscopy on 02/09 -C. diff + 02/06 and later neg on 02/09 -Discontinued 500mg Q6 PO vanc, after 4 days without remission -ASCA, ANCA panel neg, Hep neg for acute concern -CT abd/pelvis with contrast: neg abscess, toxic megacolon but + pancolitis -Starting humira, prednisone daily, c/w mesalamine PO and WI, fidaxomicin 200mg BID (stop 02/21/20 after last dose), c.diff precautions, zofran 4mg Q6H PRN for nausea, pain control. -If patient tolerates immunosuppressive therapy well after 24 hours and there is no spike in temp, WBC, will d/c home. Dr. Apodaca following closely and to see after discharge in clinic. Acute on chronic anemia: Acute blood loss anemia on chronic JAY. Stable -Daily CBC, s/p IV iron -goal Hgb >8 -Ferritin was 12 -Resume PO ferrous sulfate when hematochezia slows down. Has failed iron pills in past Tachycardia likely 2/2 to mild anemia -Not at level to transfuse, discussed with Dr. Apodaca -Monitor with CBC daily DVT ppx -TEDs DISPOSITION: Dr. Apodaca following closely. Plan is discharge home when medically improved. VS, I&O, 24H, Fishbone Vital Signs/I&O Vital Signs Date Time Temp Pulse Resp B/P (MAP) Pulse Ox O2 Delivery O2 Flow Rate FiO2 02/17/20 14:00 98.0 94 18 130/81 (97) 98 Room Air I&O- Last 24 Hours up to 6 AM 02/17/20 06:00 Intake Total 1740 ml Output Total 0 ml Balance 1740 ml Laboratory Data 24H LABS Laboratory Tests 2 02/17/20 06:04: Immature Granulocyte % (Auto) 0.5, Neutrophils (%) (Auto) 74.8H, Lymphocytes (%) (Auto) 14.0L, Monocytes (%) (Auto) 6.8H, Eosinophils (%) (Auto) 3.4H, Basophils (%) (Auto) 0.5, Neutrophils # (Auto) 9.9H, Lymphocytes # (Auto) 1.9, Monocytes # (Auto) 0.9H, Eosinophils # (Auto) 0.5, Basophils # (Auto) 0.1, Nucleated Red Blood Cells % (auto) 0.0, Anion Gap 6L, Glomerular Filtration Rate > 60.0, Calcium Level 8.9 CBC/BMP Laboratory Tests 02/17/20 06:04 Microbiology Microbiology 02/16/20 Blood Culture - Preliminary, Resulted No growth after 24 hours . All specim... 02/16/20 Blood Culture - Preliminary, Resulted No growth after 24 hours . All specim... 02/07/20 Campylobacter (PCR) - Final, Complete 02/07/20 Clostridium difficile Toxin A&B PCR - Final, Complete 02/07/20 Plesiomonas shigelloides (PCR) - Final, Complete 02/07/20 Salmonella (PCR)(RED) - Final, Complete 02/07/20 Vibrio Species (PCR) - Final, Complete 02/07/20 Vibrio Cholerae (PCR) - Final, Complete 02/07/20 Yersinia enterocolitica (PCR) - Final, Complete 02/07/20 Enteroaggregative E. coli (PCR) - Final, Complete 02/07/20 Enteropathogenic E. coli (PCR) - Final, Complete 02/07/20 Enterotoxigenic E. coli (PCR) - Final, Complete 02/07/20 E. coli Shiga-like Toxin (PCR) - Final, Complete 02/07/20 Escherichia coli 0157 (PCR) - Final, Complete 02/07/20 Enteroinvasive E. coli/Shigella PCR - Final, Complete 02/07/20 Cryptosporidium (PCR) - Final, Complete 02/07/20 Cyclospora cayetanensis (PCR) - Final, Complete 02/07/20 Entamoeba histolytica (PCR) - Final, Complete 02/07/20 Giardia lamblia (PCR) - Final, Complete 02/07/20 Adenovirus Type F 40/41 (PCR) - Final, Complete 02/07/20 Astrovirus (PCR) - Final, Complete 02/07/20 Norovirus GI/GII (PCR) - Final, Complete 02/07/20 Rotavirus A (PCR) - Final, Complete 02/07/20 Sapovirus I/II/IV/V (PCR) - Final, Complete Current Medications Current Medications Medications (Trade) Dose Ordered Sig/Luigi Route PRN Reason Start Time Stop Time Status Last Admin Dose Admin Acetaminophen (Tylenol Tab) 650 mg Q6HP PRN PO PAIN / FEVER 02/11/20 21:30 02/16/20 20:24 Diatrizoate Meglum/ Diatrizoate Sod (Gastrografin) 10 ml Q30M PO 02/16/20 13:15 02/16/20 13:46 DC 02/16/20 13:50 Fidaxomicin (Dificid) 200 mg Q12H PO 02/11/20 09:00 02/17/20 09:41 Home Med (Med Rec Complete!) ASDIRECTED XX 02/07/20 18:15 02/07/20 18:14 DC Home Med (Med Rec Complete!) ASDIRECTED XX 02/07/20 18:15 02/07/20 18:19 DC Iron (Venofer) 100 mg DAILY IV 02/12/20 09:00 02/13/20 10:00 UNV Iron 100 mg/ Sodium Chloride 105 ml @ 105 mls/hr Q24H IV 02/12/20 11:00 02/12/20 11:59 DC 02/12/20 10:33 Mesalamine (Delzicol) 1,600 mg TID PO 02/14/20 09:00 02/17/20 09:41 Mesalamine (Rowasa, Canasa) 1,000 mg DAILY WI 02/14/20 09:00 02/17/20 09:41 Morphine Sulfate (Morphine Sulfate Inj) 2 mg Q4HP PRN IV MODERATE PAIN (PS 5-7) 02/08/20 17:45 02/09/20 08:42 DC 02/08/20 17:57 Morphine Sulfate (Morphine Sulfate Inj) 2 mg Q4HP PRN IV MODERATE PAIN (PS 5-7) 02/09/20 11:45 Cancel Ondansetron HCl (ZOFRAN INJection) 4 mg Q6HP PRN IV NAUSEA OR VOMITING 02/07/20 18:15 02/13/20 16:56 DC 02/11/20 14:37 Ondansetron HCl (Zofran) 4 mg Q6HP PRN PO NAUSEA OR VOMITING 02/13/20 17:00 Phenylephrine HCl (Preparation H Supp) 1 sup QIDP PRN WI PAIN OR DISCOMFORT 02/13/20 20:30 Sodium Chloride 1,000 ml @ 100 mls/hr Q10H IV 02/07/20 18:07 02/09/20 08:41 DC 02/09/20 05:48 Sodium Chloride 1,000 ml @ 100 mls/hr Q10H IV 02/09/20 11:45 02/13/20 13:23 DC 02/13/20 02:10 Tramadol HCl (Ultram) 50 mg Q8HP PRN PO MODERATE PAIN (PS 5-7) 02/09/20 08:45 02/09/20 11:22 DC Vancomycin HCl (First-Vancomycin 50(Firvanq)- 250mg/5ml) 250 mg QID@00,06,12,18 PO 02/08/20 00:00 02/08/20 13:31 DC 02/08/20 13:00 Vancomycin HCl (First-Vancomycin 50(Firvanq)- 250mg/5ml) 500 mg Q6H PO 02/08/20 18:00 02/11/20 12:28 DC 02/11/20 05:59 Allergies Coded Allergies: No Known Drug Allergies (Verified Allergy, Unknown, 08/02/19) Francy Castro MD Feb 17, 2020 16:21
[2020-02-17] MEDS ORDERED: [UNRECOGNIZED DRUG - REMARK] SC ONE (18:00)
[2020-02-17 22:00] VITALS: BP 121/81
[2020-02-18 05:59] LABS: BASO # 0.1 10^3/uL (0.0-0.2); BASO % 0.6 % (0.0-1.0); EOS # 0.5 10^3/uL (0.0-0.5); EOS % 4.6 % (0.0-3.0); HEMATOCRIT 26.9 % (42.0-52.0); HEMOGLOBIN 8.1 g/dl (13.5-17.5); LYMPH # 2.5 10^3/uL (1.5-5.0); LYMPH % 22.7 % (24.0-44.0); MEAN CORPUSCULAR HEMOGLOBIN 25.9 pg (27.0-33.0); MEAN CORPUSCULAR HGB CONC 30.1 g/dl (32.0-36.5); MEAN CORPUSCULAR VOLUME 85.9 fl (80.0-96.0); MONO # 0.8 10^3/uL (0.0-0.8); NEUTROPHILS % 64.5 % (36.0-66.0); PLATELET COUNT, AUTOMATED 636 10^3/uL (150-450); RED BLOOD COUNT 3.13 10^6/uL (4.30-6.10); WHITE BLOOD COUNT 10.9 10^3/uL (4.0-10.0)
[2020-02-18 06:00] VITALS: BP 119/75
[2020-02-18 06:19] LABS: BLOOD UREA NITROGEN 10 MG/DL (7-18); CALCIUM LEVEL 8.7 MG/DL (8.5-10.1); CARBON DIOXIDE LEVEL 28 MEQ/L (21-32); CHLORIDE LEVEL 107 MEQ/L (98-107); CREATININE FOR GFR 0.88 MG/DL (0.70-1.30); GLOMERULAR FILTRATION RATE > 60.0 (>60); GLUCOSE, FASTING 88 MG/DL (70-100); POTASSIUM SERUM 4.4 MEQ/L (3.5-5.1); SODIUM LEVEL 140 MEQ/L (136-145)
[2020-02-18] MEDS: MESALAMINE 1,000 MG SUPP PR SCH (09:00)
[2020-02-18] MEDS: FIDAXOMICIN 200 MG TAB (DIFICID) PO SCH ×2 (09:34→21:30)
[2020-02-18] MEDS: MESALAMINE 400 MG CAPSULE DELAYED RELEASE (DELZICOL) PO SCH ×3 (09:34→21:29)
[2020-02-18] MEDS: predniSONE 50 MG TAB PO SCH (09:34)
[2020-02-18 14:00] VITALS: BP 126/79
--- NOTE | 2020-02-18 14:43 | IPNPDOC ---
Date Seen The patient was seen on 02/18/20. Progress Note SUBJECTIVE: 6-8 lightly bloody BM overnight. Afebrile. States lower abd discomfort better today, first dose humira and prednisone yesterday. GI would like to observe for today then hopeful for d/c 02/18 if continues to improve. Denies chest pain, sob, fevers or chills. OBJECTIVE: Vitals: Please see below Gen: NAD, resting in bed Head: NCAT Eyes: PERRLA, EOMI, anicteric, non injected ENT: MMM, no mouth sores Neck: no palpable adenopathy, no JVD Pulm: CTAB, no W/R/R Cardiac: RRR, no M/R/G Abd: mild TTP in b/l lower quadrants persists , normoactive sounds, soft Ext: no LE edema, WWP, 2+ DP pulses Neuro: CN 2-12 intact, moving all extremities Psych: AOx3 Laboratory: Please see below Microbiology: BCx x 2 sets: NG at 24 hours UA Neg Assessment: 24 yo active man with a recent 2m history of several hospital presentations to [facility] for abdominal pain with associated progressive anemia with slow GIB pending IBD workup with Dr. Fisher in the outpatient setting who presented with acute worsening of abdominal symptoms with copious diarrhea with episodic hematochezia and found to have severe Cdiff colitis, acute on chronic anemia, pancolitis cannot r/o IBD Plan: Abdominal pain, hematochezia likely 2/2 to C diff colitis, likely also IBD, Ulcerative colitis -approx 6-8 bloody bowel movements overnight, WBC 10.9, afebrile -S/p colonoscopy on 02/09 -C. diff + 02/06 and later neg on 02/09 -Path 02/09: Chronic and active colitis with ulceration and reactive atypia. No evidence for high grade dysplasia -Discontinued 500mg Q6 PO vanc, after 4 days without remission -ASCA, ANCA panel neg, Hep neg for acute concern -Repeat CT abd/pelvis with contrast: neg abscess, toxic megacolon but + pancolitis -Received first dose humira on 02/17/20 and started on prednisone 50 mg PO daily. c/w mesalamine PO and NH, fidaxomicin 200mg BID (stop 02/21/20 after last dose), zofran 4mg Q6H PRN for nausea, pain control. -If patient tolerates immunosuppressive therapy well after 24 hours and there is no spike in temp, WBC, will d/c home 02/19/20. Dr. Apodaca following closely and to see after discharge in clinic. Acute on chronic anemia: Acute blood loss anemia on chronic JAY. -H/H slightly lower at 8.1/26.9. Still having some blood in stools -Ferritin was 12 -Resume PO ferrous sulfate when hematochezia slows down. Has failed iron pills in past -Daily CBC, s/p IV iron -goal Hgb >8 Tachycardia likely 2/2 to mild anemia -Not at level to transfuse, discussed with Dr. Apodaca -Monitor with CBC daily DVT ppx -TEDs DISPOSITION: Dr. Apodaca following closely. Plan is discharge home within 24 hours if continues to improve. VS, I&O, 24H, Fishbone Vital Signs/I&O Vital Signs Date Time Temp Pulse Resp B/P (MAP) Pulse Ox O2 Delivery O2 Flow Rate FiO2 02/18/20 06:00 98.9 100 16 119/75 (90) 98 Room Air I&O- Last 24 Hours up to 6 AM 02/18/20 06:00 Intake Total 1140 ml Balance 1140 ml Laboratory Data 24H LABS Laboratory Tests 2 02/18/20 05:34: Immature Granulocyte % (Auto) 0.6, Neutrophils (%) (Auto) 64.5, Lymphocytes (%) (Auto) 22.7L, Monocytes (%) (Auto) 7.0H, Eosinophils (%) (Auto) 4.6H, Basophils (%) (Auto) 0.6, Neutrophils # (Auto) 7.0, Lymphocytes # (Auto) 2.5, Monocytes # (Auto) 0.8, Eosinophils # (Auto) 0.5, Basophils # (Auto) 0.1, Nucleated Red Blood Cells % (auto) 0.0, Anion Gap 5L, Glomerular Filtration Rate > 60.0, Calcium Level 8.7 CBC/BMP Laboratory Tests 02/18/20 05:34 Microbiology Microbiology 02/16/20 Blood Culture - Preliminary, Resulted No Growth after 48 hours. All Specime... 02/16/20 Blood Culture - Preliminary, Resulted No Growth after 48 hours. All Specime... Current Medications Current Medications Medications (Trade) Dose Ordered Sig/Luigi Route PRN Reason Start Time Stop Time Status Last Admin Dose Admin Acetaminophen (Tylenol Tab) 650 mg Q6HP PRN PO PAIN / FEVER 02/11/20 21:30 02/16/20 20:24 Diatrizoate Meglum/ Diatrizoate Sod (Gastrografin) 10 ml Q30M PO 02/16/20 13:15 02/16/20 13:46 DC 02/16/20 13:50 Fidaxomicin (Dificid) 200 mg Q12H PO 02/11/20 09:00 02/18/20 09:34 Home Med (Med Rec Complete!) ASDIRECTED XX 02/07/20 18:15 02/07/20 18:14 DC Home Med (Med Rec Complete!) ASDIRECTED XX 02/07/20 18:15 02/07/20 18:19 DC Iron (Venofer) 100 mg DAILY IV 02/12/20 09:00 02/13/20 10:00 UNV Iron 100 mg/ Sodium Chloride 105 ml @ 105 mls/hr Q24H IV 02/12/20 11:00 02/12/20 11:59 DC 02/12/20 10:33 Mesalamine (Delzicol) 1,600 mg TID PO 02/14/20 09:00 02/18/20 09:34 Mesalamine (Rowasa, Canasa) 1,000 mg DAILY NH 02/14/20 09:00 02/17/20 09:41 Morphine Sulfate (Morphine Sulfate Inj) 2 mg Q4HP PRN IV MODERATE PAIN (PS 5-7) 02/08/20 17:45 02/09/20 08:42 DC 02/08/20 17:57 Morphine Sulfate (Morphine Sulfate Inj) 2 mg Q4HP PRN IV MODERATE PAIN (PS 5-7) 02/09/20 11:45 Cancel Ondansetron HCl (ZOFRAN INJection) 4 mg Q6HP PRN IV NAUSEA OR VOMITING 02/07/20 18:15 02/13/20 16:56 DC 02/11/20 14:37 Ondansetron HCl (Zofran) 4 mg Q6HP PRN PO NAUSEA OR VOMITING 02/13/20 17:00 Phenylephrine HCl (Preparation H Supp) 1 sup QIDP PRN NH PAIN OR DISCOMFORT 02/13/20 20:30 Prednisone (Deltasone) 50 mg DAILY PO 02/18/20 09:00 02/18/20 09:34 Sodium Chloride 1,000 ml @ 100 mls/hr Q10H IV 02/07/20 18:07 02/09/20 08:41 DC 02/09/20 05:48 Sodium Chloride 1,000 ml @ 100 mls/hr Q10H IV 02/09/20 11:45 02/13/20 13:23 DC 02/13/20 02:10 Tramadol HCl (Ultram) 50 mg Q8HP PRN PO MODERATE PAIN (PS 5-7) 02/09/20 08:45 02/09/20 11:22 DC Vancomycin HCl (First-Vancomycin 50(Firvanq)- 250mg/5ml) 250 mg QID@00,06,12,18 PO 02/08/20 00:00 02/08/20 13:31 DC 02/08/20 13:00 Vancomycin HCl (First-Vancomycin 50(Firvanq)- 250mg/5ml) 500 mg Q6H PO 02/08/20 18:00 02/11/20 12:28 DC 02/11/20 05:59 Allergies Coded Allergies: No Known Drug Allergies (Verified Allergy, Unknown, 08/02/19) Francy Castro MD Feb 18, 2020 14:43
[2020-02-18 22:00] VITALS: BP 125/78
[2020-02-19 06:00] VITALS: BP 127/72
[2020-02-19 06:50] LABS: BASO % 0.3 % (0.0-1.0); EOS # 0.1 10^3/uL (0.0-0.5); HEMATOCRIT 27.3 % (42.0-52.0); HEMOGLOBIN 8.4 g/dl (13.5-17.5); LYMPH # 3.6 10^3/uL (1.5-5.0); LYMPH % 27.1 % (24.0-44.0); MEAN CORPUSCULAR HEMOGLOBIN 26.1 pg (27.0-33.0); MEAN CORPUSCULAR HGB CONC 30.8 g/dl (32.0-36.5); MEAN CORPUSCULAR VOLUME 84.8 fl (80.0-96.0); MONO # 0.9 10^3/uL (0.0-0.8); MONO % 6.5 % (0.0-5.0); NEUTROPHILS # 8.5 10^3/uL (1.5-8.5); NEUTROPHILS % 64.3 % (36.0-66.0); PLATELET COUNT, AUTOMATED 662 10^3/uL (150-450); RED BLOOD COUNT 3.22 10^6/uL (4.30-6.10); WHITE BLOOD COUNT 13.2 10^3/uL (4.0-10.0)
[2020-02-19 07:17] LABS: BLOOD UREA NITROGEN 10 MG/DL (7-18); CARBON DIOXIDE LEVEL 26 MEQ/L (21-32); CHLORIDE LEVEL 106 MEQ/L (98-107); CREATININE FOR GFR 0.88 MG/DL (0.70-1.30); GLOMERULAR FILTRATION RATE > 60.0 (>60); GLUCOSE, FASTING 86 MG/DL (70-100); POTASSIUM SERUM 4.2 MEQ/L (3.5-5.1); SODIUM LEVEL 138 MEQ/L (136-145)
[2020-02-19] MEDS ORDERED: ONDA-83 PO (08:04)
[2020-02-19] MEDS ORDERED: DIFI200T PO (08:04)
[2020-02-19] MEDS ORDERED: PRED50TA PO (08:04)
[2020-02-19] MEDS: MESALAMINE 400 MG CAPSULE DELAYED RELEASE (DELZICOL) PO SCH (08:31)
[2020-02-19] MEDS: FIDAXOMICIN 200 MG TAB (DIFICID) PO SCH (08:31)
[2020-02-19] MEDS: predniSONE 50 MG TAB PO SCH (08:32)
[2020-02-19] MEDS: MESALAMINE 1,000 MG SUPP PR SCH (08:32)
--- NOTE | 2020-02-19 13:54 | DS.PDOC ---
Discharge Summary General Date of Admission Feb 07, 2020 at 18:07 Date of Discharge 02/19/20 Attending Physician: Francy Castro MD Discharge Summary HISTORY OF PRESENT ILLNESS: 24 yo active man with a recent 2m history of several hospital presentations to [facility] for abdominal pain with associated progressive anemia with slow GIB pending IBD workup with Dr. Fisher in the outpatient setting who presented with acute worsening of abdominal symptoms with copious d iarrhea with episodic hematochezia and found to have Cdiff colitis, acute on chronic anemia and orthostatic hypotension. He reports no history of abdominal complaints before a few months ago. He has lost approximately 40 lbs within the few months that he has had epigastric pain, diarrhea and hematochezia. He has presented to several [facility] and was previously empirically placed on mesalamine by his PCP for presumed inflammatory bowel disease without remission, and instead, it made him queasy and feel poorly. It was stopped 1 month ago. Today he reports hematochezia with a mixture of clots and BRBPR, copious diarrhea, epigastric pain, nausea and feeling faint without fever, chills, danii hes or chest pain. In the ED he was orthostatic and was administered 1L NS bolus. Work up was notab le for WBC 13.5, Hgb 10.9 from 13.9 in 11/2019, platelets 578, na 136, K 4.4, Cr 1.16, TSH 0.571, negative tox screen, had pancolitis on CT A/P and had a positive C.diff toxin on testing. He is now being admitted to medicine with plan to hydrate, treat C.diff colitis. HOSPITAL COURSE: Patient had colonoscopy on 02/10/20, showing ulceration, concerning for pseudomembranous enterocolitis. He continued to have bloody bowel movements. He remained slightly tachycardic, likely 2/2 to anemia that was between Hgb 8-10. He was initially started on PO vancomycin but thought to not have improvements with this. He was switched to PO fidaxomycin, repeat C. diff neg on 02/10/20. Patient was started on mesalamine ATC and KS per GI due to patient having persistent 8-10 bloody bowel movements daily. This helped some. he spiked a fever on 02/17/[address] abd/pelvis with contrast 02/16/20 to r/o abscess or toxic megacolon. It only showed pancolitis. After being afebrile for >24 hrs, patient was given humira, started on prednisone 50 mg PO daily. His bowel movements slowed down some to 5-6 daily. He remained hemodynamically stable. On 02/19/20, patient was discharged home with 5 week taper of prednisone and close follow up with Dr. Apodaca (GI) this coming week. He had an episode of vomit ing that AM but felt better after he had a large bowel movement. At the time of discharge late AM, patient denied chest pain, n/v, fevers, chills, shortness of breath. PAST MEDICAL HISTORY: Hx of GI bleed believed to be 2/2 to IBD Chronic iron deficiency anemia PAST SURGICAL HISTORY: Colonoscopy FAMILY HISTORY: No significant family history. Mother and father still alive. SOCIAL HISTORY: Alcohol: Denies Drugs: Denies Recent Travel/Sick Contacts: Denies: Recent travel, Recent sick contacts Psychosocial History: No pertinent psych hx ALLERGIES: Please see below. DISCHARGE MEDICATIONS: Please see below. PHYSICAL EXAMINATION: Vitals: Please see below Gen: NAD, resting in bed Head: NCAT Eyes: PERRLA, EOMI, anicteric, non injected ENT: MMM, no mouth sores Neck: no palpable adenopathy, no JVD Pulm: CTAB, no W/R/R Cardiac: RRR, no M/R/G Abd: mild TTP in b/l lower quadrants persists , normoactive sounds, soft Ext: no LE edema, WWP, 2+ DP pulses Neuro: CN 2-12 intact, moving all extremities Psych: AOx3 Laboratory: Please see below Microbiology: BCx x 2 sets: NG at 24 hours UA Neg IMAGING: CT abd/pelvis with contrast 02/16/20: Pancolitis. Colonoscopy 02/10/20: - Mucosal ulceration. Biopsied. Pseudomembranous enterocolitis. PATHOLOGY 02/10/20: Chronic and active colitis with ulceration and reactive atypia. No evidence for high grade dysplasia. Assessment: 24 yo active man with a recent 2m history of several hospital presentations to [facility] for abdominal pain with associated progressive anemia with slow GIB pending IBD workup with Dr. Fisher in the outpatient setting who presented with acute worsening of abdominal symptoms with copious diarrhea with episodic hematochezia and found to have severe Cdiff colitis, acute on chronic anemia, pancolitis with IBD Plan: Abdominal pain, hematochezia likely 2/2 to C diff colitis, IBD-Ulcerative colitis -no bloody bowel movements overnight. Mild incr in WBC ;however, patient now on high dose steroids so likely this. Afebrile. -S/p colonoscopy on 02/09 -Path 02/09: Chronic and active colitis with ulceration and reactive atypia. No evidence for high grade dysplasia -C. diff + 02/06 and later neg on 02/09 -ASCA, ANCA panel neg, Hep neg for acute concern -Repeat CT abd/pelvis with contrast 02/16/20: neg abscess, toxic megacolon but + pancolitis -Received first dose humira on 02/17/20 and started on prednisone 50 mg PO daily (tapered dose over 5 weeks). He is to continue with prednisone, mesalamine PO and KS, fidaxomicin 200mg BID (stop 02/21/20 after last dose), zofran 4mg Q6H PRN for nausea. -F/u with Dr. Apodaca as scheduled. Will discuss next dose of humira in the office. Acute on chronic anemia: Acute blood loss anemia on chronic JAY. -H/H 8.4/27.3. Still having some blood in stools -Ferritin was 12 -Resume PO ferrous sulfate when hematochezia slows down. Has failed iron pills in past -Daily CBC, s/p IV iron -goal Hgb >8 Tachycardia likely 2/2 to mild anemia -Not at level to transfuse, discussed with Dr. Apodaca -Monitor with CBC daily DISPOSITION: Discharging home today with f/u with Dr. Apodaca as already scheduled. Patient is advised to call PCP after weekend to make f/u with them as well. TIME SPENT ON DISCHARGE: Greater than 30 minutes. Vital Signs/I&Os Vital Signs Date Time Temp Pulse Resp B/P (MAP) Pulse Ox O2 Delivery O2 Flow Rate FiO2 02/19/20 06:00 98.1 108 18 127/72 (90) 98 Room Air I&O- Last 24 Hours up to 6 AM 02/19/20 06:00 Intake Total 2685 ml Balance 2685 ml Laboratory Data Labs 24H Laboratory Tests 2 02/19/20 06:35: Immature Granulocyte % (Auto) 0.8, Neutrophils (%) (Auto) 64.3, Lymphocytes (%) (Auto) 27.1, Monocytes (%) (Auto) 6.5H, Eosinophils (%) (Auto) 1.0, Basophils (%) (Auto) 0.3, Neutrophils # (Auto) 8.5, Lymphocytes # (Auto) 3.6, Monocytes # (Auto) 0.9H, Eosinophils # (Auto) 0.1, Basophils # (Auto) 0.0, Nucleated Red Blood Cells % (auto) 0.0, Anion Gap 6L, Glomerular Filtration Rate > 60.0, Calcium Level 9.0 CBC/BMP Laboratory Tests 02/19/20 06:35 Microbiology Microbiology 02/16/20 Blood Culture - Preliminary, Resulted No Growth after 48 hours. All Specime... 02/16/20 Blood Culture - Preliminary, Resulted No Growth after 48 hours. All Specime... Discharge Medications Scheduled Ferrous Sulfate (Ferrous Sulfate) 300 Mg/5 Ml Liquid, 2 ML PO BID, (Reported) Fidaxomicin (Dificid) 200 Mg Tablet, 200 MG PO Q12H Prednisone (Prednisone) 50 Mg Tablet, 50 MG PO DAILY Prednisone taper over 5 weeks: 50 mg Po x 7 days, 40 mg Po x7 days, 30 mg Po x 7 days, 20 mg Po x 7 days, 10 mg PO x 7 days Scheduled PRN Ondansetron HCl (Ondansetron HCl) 4 Mg Tablet, 4 MG PO Q4H PRN for NAUSEA OR VOMITING, (Reported) Ondansetron HCl (Ondansetron HCl) 4 Mg Tablet, 4 MG PO Q6HP PRN for NAUSEA OR VOMITING Allergies Coded Allergies: No Known Drug Allergies (Verified Allergy, Unknown, 08/02/19) Current Medications Current Medications Medications (Trade) Dose Ordered Sig/Luigi Route PRN Reason Start Time Stop Time Status Last Admin Dose Admin Acetaminophen (Tylenol Tab) 650 mg Q6HP PRN PO PAIN / FEVER 02/11/20 21:30 02/19/20 12:37 DC 02/16/20 20:24 Diatrizoate Meglum/ Diatrizoate Sod (Gastrografin) 10 ml Q30M PO 02/16/20 13:15 02/16/20 13:46 DC 02/16/20 13:50 Fidaxomicin (Dificid) 200 mg Q12H PO 02/11/20 09:00 02/19/20 12:37 DC 02/19/20 08:31 Home Med (Med Rec Complete!) ASDIRECTED XX 02/07/20 18:15 02/07/20 18:14 DC Home Med (Med Rec Complete!) ASDIRECTED XX 02/07/20 18:15 02/07/20 18:19 DC Iron (Venofer) 100 mg DAILY IV 02/12/20 09:00 02/13/20 10:00 UNV Iron 100 mg/ Sodium Chloride 105 ml @ 105 mls/hr Q24H IV 02/12/20 11:00 02/12/20 11:59 DC 02/12/20 10:33 Mesalamine (Delzicol) 1,600 mg TID PO 02/14/20 09:00 02/19/20 12:37 DC 02/19/20 08:31 Mesalamine (Rowasa, Canasa) 1,000 mg DAILY KS 02/14/20 09:00 02/19/20 12:37 DC 02/17/20 09:41 Miscellaneous (Unresolved Clarification Entry) SEE LABEL COMMENTS DAILY XX 02/18/20 09:00 02/19/20 12:37 DC Morphine Sulfate (Morphine Sulfate Inj) 2 mg Q4HP PRN IV MODERATE PAIN (PS 5-7) 02/08/20 17:45 02/09/20 08:42 DC 02/08/20 17:57 Morphine Sulfate (Morphine Sulfate Inj) 2 mg Q4HP PRN IV MODERATE PAIN (PS 5-7) 02/09/20 11:45 Cancel Ondansetron HCl (ZOFRAN INJection) 4 mg Q6HP PRN IV NAUSEA OR VOMITING 02/07/20 18:15 02/13/20 16:56 DC 02/11/20 14:37 Ondansetron HCl (Zofran) 4 mg Q6HP PRN PO NAUSEA OR VOMITING 02/13/20 17:00 02/19/20 12:37 DC Phenylephrine HCl (Preparation H Supp) 1 sup QIDP PRN KS PAIN OR DISCOMFORT 02/13/20 20:30 02/19/20 12:37 DC Prednisone (Deltasone) 50 mg DAILY PO 02/18/20 09:00 02/19/20 12:37 DC 02/19/20 08:32 Sodium Chloride 1,000 ml @ 100 mls/hr Q10H IV 02/07/20 18:07 02/09/20 08:41 DC 02/09/20 05:48 Sodium Chloride 1,000 ml @ 100 mls/hr Q10H IV 02/09/20 11:45 02/13/20 13:23 DC 02/13/20 02:10 Tramadol HCl (Ultram) 50 mg Q8HP PRN PO MODERATE PAIN (PS 5-7) 02/09/20 08:45 02/09/20 11:22 DC Vancomycin HCl (First-Vancomycin 50(Firvanq)- 250mg/5ml) 250 mg QID@00,06,12,18 PO 02/08/20 00:00 02/08/20 13:31 DC 02/08/20 13:00 Vancomycin HCl (First-Vancomycin 50(Firvanq)- 250mg/5ml) 500 mg Q6H PO 02/08/20 18:00 02/11/20 12:28 DC 02/11/20 05:59 Francy Castro MD Feb 19, 2020 13:54
[2020-02-19] MEDS ORDERED: MESA50SU PR (14:14)
[2020-02-19] MEDS ORDERED: MESA800T8 PO (14:14)
== END 2020-02-19 12:26 | disposition home or self-care (01) | DRG 372 ==
LOC: M ED 11:54 → M MSPAV 18:07 → ENRESERV 18:20
PROVIDERS: ADMIT Internal Medicine; ATTEND Internal Medicine
PROC: 0DBL8ZX Excision of Transverse Colon, Via Natural or Artificial Opening Endoscopic, Diagnostic (ICD-10-PCS; 2020-02-10)
PROC: 0DB98ZX Excision of Duodenum, Via Natural or Artificial Opening Endoscopic, Diagnostic (ICD-10-PCS; principal; 2020-02-10 13:00)
DX: A04.72 Enterocolitis due to Clostridium difficile, not specified as recurrent (principal); D62 Acute posthemorrhagic anemia; K62.6 Ulcer of anus and rectum; I95.1 Orthostatic hypotension; R63.4 Abnormal weight loss; D50.9 Iron deficiency anemia, unspecified; K58.0 Irritable bowel syndrome with diarrhea; R00.0 Tachycardia, unspecified; Z20.828 Contact with and (suspected) exposure to other viral communicable diseases

== ENCOUNTER 2020-03-06 14:24 | Emergency (ER) | payer OTHER ==
[~2020-03-06] VITALS: Ht 172.7 cm; Wt 73.6 kg
[~2020-03-06 14:24] MED LIST changes: +DIFI200T PO; +FERR5MLUD PO; +MESA50SU PR; +MESA800T8 PO; +ONDA-83 PO; +PRED50TA PO; +VANC1CAP7 PO; +[UNRECOGNIZED DRUG - OTHER]
[2020-03-06] MEDS ORDERED: HUMI40KI2 SC (14:42)
[2020-03-06] MEDS ORDERED: NS 500 ML IV ONE (15:30)
[2020-03-06 15:59] LABS: BASO % 0.3 % (0.0-1.0); HEMATOCRIT 28.5 % (42.0-52.0); HEMOGLOBIN 8.2 g/dl (13.5-17.5); MEAN CORPUSCULAR HEMOGLOBIN 24.1 pg (27.0-33.0); MEAN CORPUSCULAR HGB CONC 28.8 g/dl (32.0-36.5); MEAN CORPUSCULAR VOLUME 83.8 fl (80.0-96.0); MONO # 0.2 10^3/uL (0.0-0.8); NEUTROPHILS # 6.8 10^3/uL (1.5-8.5); PLATELET COUNT, AUTOMATED 692 10^3/uL (150-450)
[2020-03-06 16:32] LABS: ALBUMIN 3.1 GM/DL (3.2-5.2); ALT/SGPT 38 U/L (12-78); BILIRUBIN,DIRECT < 0.1 MG/DL (0.0-0.2); BILIRUBIN,TOTAL 0.2 MG/DL (0.2-1.0); TOTAL PROTEIN 6.8 GM/DL (6.4-8.2)
--- NOTE | 2020-03-06 17:08 | REP ---
INDICATION: abd pain. COMPARISON: CT 12/13/2019 TECHNIQUE: Supine abdomen two views FINDINGS: Two supine views show some gas the in upper abdominal small bowel loops of these are not dilated most of the small bowel loops are fluid-filled there is some mild stool scattered throughout the colon from cecum to rectosigmoid. No dilated colon loops. No abnormal calcifications or masses. The bony spine, posterior ribs and pelvis included were unremarkable. SI joints show no erosions or sclerosis. IMPRESSION: 1. Nonspecific gas pattern without evidence of obstruction or mass. Scattered stool and gas throughout the colon as well. Most of the mid to distal small bowel loops are apparently fluid-filled well there is gas scattered in upper abdominal small bowel loops but these are not dilated. 2. No abnormal calcifications or bony findings. <Electronically signed by Kalin An > 03/06/20 [id number]
[2020-03-06 17:24] LABS: BLOOD UREA NITROGEN 14 MG/DL (7-18); CALCIUM LEVEL 8.8 MG/DL (8.5-10.1); CARBON DIOXIDE LEVEL 27 MEQ/L (21-32); CHLORIDE LEVEL 107 MEQ/L (98-107); CREATININE FOR GFR 0.86 MG/DL (0.70-1.30); GLOMERULAR FILTRATION RATE > 60.0 (>60); GLUCOSE, FASTING 102 MG/DL (70-100); POTASSIUM SERUM 4.9 MEQ/L (3.5-5.1); SODIUM LEVEL 140 MEQ/L (136-145)
[2020-03-06] MEDS ORDERED: PEPC1TAB5 PO (17:31)
[2020-03-06 17:51] VITALS: BP 125/71
[2020-03-20] MEDS ORDERED: MESA800T8 PO (11:17)
== END 2020-03-06 17:53 | disposition home or self-care (01) ==
LOC: EDBD 14:24 → M ED 14:24
DX: K51.90 Ulcerative colitis, unspecified, without complications (principal); Z86.19 Personal history of other infectious and parasitic diseases; Z79.899 Other long term (current) drug therapy; Z79.52 Long term (current) use of systemic steroids

== ENCOUNTER 2020-03-13 11:48 | Inpatient (IN) | payer OTHER ==
[~2020-03-13] VITALS: Ht 172.7 cm; Wt 76.3 kg
[~2020-03-13 11:48] MED LIST changes: +HUMI40KI2 SC; +PEPC1TAB5 PO
[2020-03-13 12:46] LABS: BASO % 0.3 % (0.0-1.0); EOS # 0.1 10^3/uL (0.0-0.5); EOS % 1.1 % (0.0-3.0); HEMATOCRIT 27.7 % (42.0-52.0); HEMOGLOBIN 8.1 g/dl (13.5-17.5); LYMPH % 16.4 % (24.0-44.0); MEAN CORPUSCULAR HEMOGLOBIN 23.7 pg (27.0-33.0); MEAN CORPUSCULAR HGB CONC 29.2 g/dl (32.0-36.5); MONO # 0.5 10^3/uL (0.0-0.8); NEUTROPHILS # 9.3 10^3/uL (1.5-8.5); NEUTROPHILS % 77.6 % (36.0-66.0); PLATELET COUNT, AUTOMATED 673 10^3/uL (150-450); RED BLOOD COUNT 3.42 10^6/uL (4.30-6.10)
[2020-03-13 13:17] LABS: ALT/SGPT 25 U/L (12-78); BILIRUBIN,DIRECT 0.1 MG/DL (0.0-0.2); BILIRUBIN,TOTAL 0.2 MG/DL (0.2-1.0); BLOOD UREA NITROGEN 14 MG/DL (7-18); CALCIUM LEVEL 8.9 MG/DL (8.5-10.1); CARBON DIOXIDE LEVEL 27 MEQ/L (21-32); CHLORIDE LEVEL 105 MEQ/L (98-107); CREATININE FOR GFR 0.96 MG/DL (0.70-1.30); GLOMERULAR FILTRATION RATE > 60.0 (>60); GLUCOSE, FASTING 94 MG/DL (70-100); LIPASE 86 U/L (73-393); POTASSIUM SERUM 4.2 MEQ/L (3.5-5.1); SODIUM LEVEL 137 MEQ/L (136-145); TOTAL PROTEIN 6.7 GM/DL (6.4-8.2)
[2020-03-13] MEDS ORDERED: NS 1,000 ML IV ONE (13:30)
[2020-03-13 13:43] LABS: C REACTIVE PROTEIN QUANTITATIV < 0.30 MG/DL (0.00-0.30)
[2020-03-13] MEDS: GASTROGRAFIN SOLUTION 30ML PO SCH ×2 (13:47→14:11)
[2020-03-13 14:37] LABS: ERYTHROCYTE SEDIMENTATION RATE 48 mm/hr (0-15)
[2020-03-13] MEDS ORDERED: PRED10TA2 PO (15:29)
[2020-03-13] MEDS ORDERED: ASAC800T3 PO (15:29)
[2020-03-13] MEDS ORDERED: FAMO20TA PO (15:29)
[2020-03-13] MEDS ORDERED: ONDANSETRON 4 MG TAB PO PRN (15:30)
--- NOTE | 2020-03-13 15:33 | HPEPDOC ---
[facility] Medical History & Physical Date of Admission Mar 13, 2020 Date of Service: Mar 13, 2020 History and Physical CHIEF COMPLAINT: ABDOMINAL PAIN, BLOODY DIARRHEA HISTORY OF PRESENT ILLNESS: 24M sent by PCP for symptomatic orthostatic hypotension. Patient also notes continued blood stools/diarrhea, chills/diaphoresis and LLQ abdominal pain, non-radiating. He was recently discharged from the hospital about three weeks ago for similar symptoms, underwent colonoscopy, and found to have severe colitis. Patient denies chest pain, shortness of breath, headaches, changes in vision, dysuria/polyuria. PAST MEDICAL HISTORY: #IBD/UC? - on Humira #anemia ALLERGIES: Please see below. REVIEW OF SYSTEMS: Negative except as per HPI HOME MEDICATIONS: Please see below. PHYSICAL EXAMINATION: VITAL SIGNS: See below General: NAD, lying comfortably in bed HEENT: NC/AT, EOMI Lungs: CTA B/L Heart: +S1S2, RRR Abd: soft, +BS Ext: no edema LABORATORY DATA: See below. MICROBIOLOGY: Please see below. ASSESSMENT/PLAN: 24M for abdominal pain, bloody stools, diarrhea sent by PCP for symptomatic orthostatic hypotension. Recently discharged from the hospital for similar symptoms where colonoscopy revealed severe colitis. #colitis - GI c/s pending - d/w GI - assistance appreciated - CLD/IV fluids - continue home medications - check Humira levels in am/antibodies - steroid - mesalamine #orthostatic hypotension - IV fluids #anemia - likely secondary to GI bleed from IBD/iron deficiency? #DVT prophylaxis - mechanical Vital Signs Vital Signs Date Time Temp Pulse Resp B/P (MAP) Pulse Ox O2 Delivery O2 Flow Rate FiO2 03/13/20 13:23 88 132/83 (99) 105 130/83 (99) 123 124/63 (83) 03/13/20 12:17 98.0 03/13/20 12:16 20 100 Room Air Laboratory Data Labs 24H Laboratory Tests 2 03/13/20 12:34: Anion Gap 5L, Glomerular Filtration Rate > 60.0, Calcium Level 8.9, Total Bilirubin 0.2, Direct Bilirubin 0.1, Aspartate Amino Transf (AST/SGOT) 8, Alanine Aminotransferase (ALT/SGPT) 25, Alkaline Phosphatase 63, C-Reactive Protein, Quantitative < 0.30, Total Protein 6.7, Albumin 3.0L, Albumin/Globulin Ratio 0.8, Lipase 86 03/13/20 12:35: Immature Granulocyte % (Auto) 0.6, Neutrophils (%) (Auto) 77.6H, Lymphocytes (%) (Auto) 16.4L, Monocytes (%) (Auto) 4.0, Eosinophils (%) (Auto) 1.1, Basophils (%) (Auto) 0.3, Neutrophils # (Auto) 9.3H, Lymphocytes # (Auto) 2.0, Monocytes # (Auto) 0.5, Eosinophils # (Auto) 0.1, Basophils # (Auto) 0.0, Nucleated Red Blood Cells % (auto) 0.0, Erythrocyte Sedimentation Rate 48H 03/13/20 13:44: Lactic Acid Level 1.4 CBC/BMP Laboratory Tests 03/13/20 12:34 03/13/20 12:35 Microbiology Microbiology 03/13/20 Blood Culture, Received Pending 03/13/20 Blood Culture, Received Pending Home Medications Scheduled Adalimumab (Humira Pen) Unknown Strength Pen.ij.kit, 1 DOSE SC Q2WK Famotidine (Famotidine) 20 Mg Tablet, 20 MG PO BID Mesalamine (Asacol Hd) 800 Mg Tablet.dr, 1,600 MG PO TID Prednisone (Prednisone) 50 Mg Tablet, 50 MG PO DAILY Scheduled PRN Ondansetron HCl (Ondansetron HCl) 4 Mg Tablet, 4 MG PO Q4H PRN for NAUSEA OR VOMITING Allergies Coded Allergies: No Known Drug Allergies (Verified Allergy, Unknown, 08/02/19) A-FIB/CHADSVASC A-FIB History Current/History of A-Fib/PAF?: No JOE LEAL MD Mar 13, 2020 15:33
[2020-03-13 17:15] VITALS: BP 152/89
[2020-03-13] MEDS: NS 1,000 ML IV SCH (17:57)
[2020-03-13] MEDS: MESALAMINE 400 MG CAPSULE DELAYED RELEASE (DELZICOL) PO SCH (20:25)
[2020-03-13] MEDS: FAMOTIDINE 20 MG TAB PO SCH (20:25)
[2020-03-13 22:00] VITALS: BP 149/85
[2020-03-14] VITALS (12 sets, daily range): BP systolic 127–160; BP diastolic 69–97
[2020-03-14] MEDS: NS 1,000 ML IV SCH ×2 (02:33→13:47)
[2020-03-14 02:52] LABS: AMORPHOUS SEDIMENT SMALL (NEGATIVE); APPEARANCE, URINE CLEAR (CLEAR); BACTERIA, URINE AUTO NEGATIVE (NEGATIVE); BILIRUBIN, URINE AUTO NEGATIVE (NEGATIVE); BLOOD, URINE BLOOD NEGATIVE (NEGATIVE); COLOR, URINE YELLOW (YELLOW); GLUCOSE, URINE (UA) AUTO 3+ mg/dL (NEGATIVE); KETONE, URINE AUTO NEGATIVE (NEGATIVE); LEUKOCYTE ESTERASE, URINE AUTO NEGATIVE (NEGATIVE); MUCUS, URINE SMALL (NEGATIVE); NITRITE, URINE AUTO NEGATIVE (NEGATIVE); PROTEIN, URINE AUTO NEGATIVE (NEGATIVE); RBC, URINE AUTO 0 /HPF (0-3); SPECIFIC GRAVITY URINE AUTO 1.015 (1.002-1.035); SQUAMOUS EPITHELIAL CELL UR AU 0 /HPF (0-6); UROBILINOGEN, URINE AUTO 0.2 mg/dL (0.0-2.0); WBC, URINE AUTO 0 /HPF (0-3)
[2020-03-14 07:06] LABS: HEMATOCRIT 25.6 % (42.0-52.0); HEMOGLOBIN 7.2 g/dl (13.5-17.5); MEAN CORPUSCULAR HEMOGLOBIN 22.9 pg (27.0-33.0); MEAN CORPUSCULAR HGB CONC 28.1 g/dl (32.0-36.5); MEAN CORPUSCULAR VOLUME 81.3 fl (80.0-96.0); PLATELET COUNT, AUTOMATED 632 10^3/uL (150-450); RED BLOOD COUNT 3.15 10^6/uL (4.30-6.10); WHITE BLOOD COUNT 12.4 10^3/uL (4.0-10.0)
[2020-03-14 07:36] LABS: ALBUMIN 2.6 GM/DL (3.2-5.2); ALT/SGPT 22 U/L (12-78); BILIRUBIN,TOTAL 0.2 MG/DL (0.2-1.0); BLOOD UREA NITROGEN 9 MG/DL (7-18); CALCIUM LEVEL 8.4 MG/DL (8.5-10.1); CARBON DIOXIDE LEVEL 27 MEQ/L (21-32); CHLORIDE LEVEL 107 MEQ/L (98-107); CREATININE FOR GFR 0.88 MG/DL (0.70-1.30); GLOMERULAR FILTRATION RATE > 60.0 (>60); GLUCOSE, FASTING 78 MG/DL (70-100); POTASSIUM SERUM 4.1 MEQ/L (3.5-5.1); SODIUM LEVEL 139 MEQ/L (136-145); TOTAL PROTEIN 5.9 GM/DL (6.4-8.2)
[2020-03-14] MEDS: predniSONE 50 MG TAB PO SCH (08:23)
[2020-03-14] MEDS: MESALAMINE 400 MG CAPSULE DELAYED RELEASE (DELZICOL) PO SCH ×3 (08:24→21:14)
[2020-03-14] MEDS: FAMOTIDINE 20 MG TAB PO SCH ×2 (08:24→21:14)
--- NOTE | 2020-03-14 14:16 | IPNPDOC ---
Date Seen The patient was seen on 03/14/20. Progress Note SUBJECTIVE: Patient seen and examined at the bedside chart it's been reviewed. He denies any chest pain, pressure, tightness, shortness of breath but complains of generalized weakness. He continues to have bright red blood per rectum without any diarrhea, abdominal pain, fever, chills overnight. Blood pressure was well maintained with systolic pressure ranging between 120-135. No complaints of dizziness. OBJECTIVE PHYSICAL EXAMINATION: VITAL SIGNS: Please see below. GENERAL: Pallor, no icterus, jaundice, awake, alert, oriented 3. No conversational dyspnea HEENT: Pale. No JVD, thyromegaly, no cervical lymphadenopathy, moist mucous membranes, awakE Extra Ocular muscles intact . Carotid bruit. No striDOR CARDIOVASCULAR: S1, S2, sinus rhythm, no murmurs, rubs or gallops RESPIRATORY: Good auscultation. Wheezing, rales or rhonchi ABDOMINAL: Positive bowel sounds, soft, nondistended, no CVA tenderness. No rebound, guarding, no hepatosplenomegaly EXTREMITIES: No cyanosis, clubbing or pitting edema LABORATORY DATA, IMAGING STUDIES, MICROBIOLOGY: Please see below. Hospital medications prednisone 50 daily, famotidine 20 twice a day, mesalamine 1600 mg 3 times a day, sodium, chloride 90ml/hr Zofran 4 mg by mouth every 4 as needed for nausea DVT prophylaxis ordered?: Compression stockings ASSESSMENT AND PLAN: A 4-year-old male presents with severe bloody diarrhea, abdominal pain with prior history of C. difficile treated for C. difficile colitis found to have severe ulcerative colitis was on tapering dose of prednisone and discharged on 02/17/2020 on Humira second dose this coming Thursday this week. He completed a full course of dificid as outpatient and now returns with bloody diarrhea, hemoglobin of 7.2. Ulcerative colitis exacerbation , received Humira last week Acute blood loss anemia secondary to E diarrhea from ulcerative colitis exacerbation Symptomatic anemia with complaints of weakness Acute lower GI bleed . Leukocytosis secondary to prednisone Recent history of Clostridium difficile infection, status post full course of the dificid Plan: Patient has not had any fever, chills or worsening abdominal pain. His hemoglobin of 7 with complaints of weakness necessitates RBC transfusion. Patient will be continued on current high dose of prednisone for the next 4 weeks perGI. If patient develops worsening abdominal pain and fever, Obtain a CT of the abdomen to rule out abscess or stricture formation. Check hemoglobin and hematocrit after blood transfusion. Continue with supportive care. GI, Dr. Apodaca has been consulted VS, I&O, 24H, [place] Vital Signs/I&O Vital Signs Date Time Temp Pulse Resp B/P (MAP) Pulse Ox O2 Delivery O2 Flow Rate FiO2 03/14/20 13:04 98.8 78 16 129/69 99 Room Air I&O- Last 24 Hours up to 6 AM 03/14/20 06:00 Intake Total 1810 ml Output Total 0 ml Balance 1810 ml Laboratory Data 24H LABS Laboratory Tests 2 03/13/20 14:56: Coronavirus (COVID-19)(PCR) NEGATIVE 03/14/20 02:34: Urine Color YELLOW, Urine Appearance CLEAR, Urine pH 6.0, Urine Specific [place] 1.015, Urine Protein NEGATIVE, Urine Glucose (Auto)(UA) 3+H, Urine Ketones (Aut o) NEGATIVE, Urine Blood NEGATIVE, Urine Nitrite NEGATIVE, Urine Bilirubin NEGATIVE, Urine Urobilinogen 0.2, Urine Leukocyte Esterase (Auto) NEGATIVE, Urine WBC (Auto) 0, Urine RBC (Auto) 0, Urine Hyaline Casts (Auto) 0, Urine Bacteria (Auto) NEGATIVE, Urine Squamous Epithelial Cells 0, Urine Amorphous Sediment (Auto) SMALLH, Urine Mucus (Auto) SMALL, Urine Sperm (Auto) 03/14/20 06:44: Nucleated Red Blood Cells % (auto) 0.0, Anion Gap 5L, Glomerular Filtration Rate > 60.0, Calcium Level 8.4L, Total Bilirubin 0.2, Aspartate Amino Transf (AST/SGOT) 10, Alanine Aminotransferase (ALT/SGPT) 22, Alkaline Phosphatase 56, Total Protein 5.9L, Albumin 2.6L, Albumin/Globulin Ratio 0.8 CBC/BMP Laboratory Tests 03/14/20 06:44 Microbiology Microbiology 03/14/20 Urine Culture, Received Pending 03/13/20 Blood Culture - Preliminary, Resulted No growth after 24 hours . All specim... 03/13/20 Blood Culture - Preliminary, Resulted No growth after 24 hours . All specim... 03/13/20 Campylobacter (PCR), Received Pending 03/13/20 Clostridium difficile Toxin A&B PCR, Received Pending 03/13/20 Plesiomonas shigelloides (PCR), Received Pending 03/13/20 Salmonella (PCR)(RED), Received Pending 03/13/20 Vibrio Species (PCR), Received Pending 03/13/20 Vibrio Cholerae (PCR), Received Pending 03/13/20 Yersinia enterocolitica (PCR), Received Pending 03/13/20 Enteroaggregative E. coli (PCR), Received Pending 03/13/20 Enteropathogenic E. coli (PCR), Received Pending 03/13/20 Enterotoxigenic E. coli (PCR), Received Pending 03/13/20 E. coli Shiga-like Toxin (PCR), Received Pending 03/13/20 Escherichia coli 0157 (PCR), Received Pending 03/13/20 Enteroinvasive E. coli/Shigella PCR, Received Pending 03/13/20 Cryptosporidium (PCR), Received Pending 03/13/20 Cyclospora cayetanensis (PCR), Received Pending 03/13/20 Entamoeba histolytica (PCR), Received Pending 03/13/20 Giardia lamblia (PCR), Received Pending 03/13/20 Adenovirus Type F 40/41 (PCR), Received Pending 03/13/20 Astrovirus (PCR), Received Pending 03/13/20 Norovirus GI/GII (PCR), Received Pending 03/13/20 Rotavirus A (PCR), Received Pending 03/13/20 Sapovirus I/II/IV/V (PCR), Received Pending DANIELLA MELO MD Mar 14, 2020 14:16
[2020-03-14] MEDS ORDERED: HYDROMORPHONE HCL 0.5 MG/ 0.5 ML SYRINGE (J1170 PER 1) IV ONE (17:15)
[2020-03-14 19:11] LABS: HEMATOCRIT 34.6 % (42.0-52.0)
[2020-03-14 19:18] LABS: HEMOGLOBIN 10.5 g/dl (13.5-17.5)
[2020-03-15] MEDS: NS 1,000 ML IV SCH (00:51)
[2020-03-15 06:00] VITALS: BP 137/73
[2020-03-15] MEDS ORDERED: PRED50TA PO (07:05)
[2020-03-15] MEDS: FAMOTIDINE 20 MG TAB PO SCH (07:32)
[2020-03-15] MEDS: predniSONE 50 MG TAB PO SCH (07:32)
[2020-03-15] MEDS: MESALAMINE 400 MG CAPSULE DELAYED RELEASE (DELZICOL) PO SCH ×2 (07:32→16:22)
[2020-03-15] MEDS ORDERED: IRON SUCROSE 100MG 5ML VIAL (J1756 PER 1MG) IV ONE (07:45)
[2020-03-15 07:58] LABS: HEMATOCRIT 36.2 % (42.0-52.0); HEMOGLOBIN 10.7 g/dl (13.5-17.5); MEAN CORPUSCULAR HEMOGLOBIN 24.4 pg (27.0-33.0); MEAN CORPUSCULAR HGB CONC 29.6 g/dl (32.0-36.5); MEAN CORPUSCULAR VOLUME 82.5 fl (80.0-96.0); PLATELET COUNT, AUTOMATED 718 10^3/uL (150-450); RED BLOOD COUNT 4.39 10^6/uL (4.30-6.10); WHITE BLOOD COUNT 17.9 10^3/uL (4.0-10.0)
--- NOTE | 2020-03-15 08:03 | DS.PDOC ---
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 MONITOR FOR Possible complications: 1)abscess-fever, abd pain/distention, decreased oral intake Rx: CT abd/pelvis, cipro/flagyl, surgical consult for drain 2)Fistula-fever, abd pain/distention Rx: CT abd/pelvis, cipro/flagyl, surgical consult 3) stricture-abd pain/distention, decreased po intake rx: CT abd/pelvis, surgical consult 4)blood loss anemia-weakness, hematochesia, sob, palpitations, lightheadedness rx: cbc, transfuse. did not tolerate po iron. HOSPITAL COURSE: 24-year-old male presents with severe bloody diarrhea, abdominal pain with prior history of C. difficile treated for C. difficile colitis found to have severe ulcerative colitis was on tapering dose of prednisone and discharged on 02/17/2020 on Humira second dose this coming Thursday this week. He completed a full course of dificid as outpatient and now returns with bloody diarrhea, hemog lobin of 7.2.Pt was admitted for symptomatic anemia, acute blood loss, acute LGIBleed, UC exacerbation, and given 2units RBC transfusion, but ordered 3 units. Repeat hemoglobin was 10 after transfusion. He was continued on mesalamine, started on high dose prednisone 50 mg daily, and remained afebrile, with no abd pain. He tolerated his diet while on prednisone and mesalamine, and despite having drops of blood, he remained stable after 2 units rbc transfusion. Pt developed chills without fever or hypotension when the 3rd unit rbc was started. Patient will be continued on current high dose of prednisone 50 mg daily for the next 4 weeks perGI. He is to be continued on Humira per GI. DISCHARGE PHYSICAL EXAMINATION: VITAL SIGNS: Please see below. GENERAL:No Pallor, no icterus, jaundice, awake, alert, oriented 3. No conversational dyspnea HEENT: NC/AT EOMI No JVD, thyromegaly, no cervical lymphadenopathy, moist mucous membranes no Carotid bruit. No striDOR CARDIOVASCULAR: S1, S2, sinus rhythm, no murmurs, rubs or gallops RESPIRATORY: clear to auscultation.no Wheezing, rales or rhonchi ABDOMINAL: Positive bowel sounds, soft, nondistended, no CVA tenderness. No rebound, guarding, no hepatosplenomegaly EXTREMITIES: No cyanosis, clubbing or pitting edema LABORATORY DATA, IMAGING STUDIES, MICROBIOLOGY: Please see below. DVT prophylaxis ordered?: Compression stockings TIME SPENT ON DISCHARGE: 30 MINUTES. Vital Signs/I&Os Vital Signs Date Time Temp Pulse Resp B/P (MAP) Pulse Ox O2 Delivery O2 Flow Rate FiO2 03/15/20 06:00 98.1 88 17 137/73 (94) 97 Room Air I&O- Last 24 Hours up to 6 AM 03/15/20 05:59 Intake Total 2460 ml Output Total 650 ml Balance 1810 ml Laboratory Data CBC/BMP Laboratory Tests 03/14/20 18:49 Microbiology Microbiology 03/14/20 Urine Culture, Received Pending 03/13/20 Blood Culture - Preliminary, Resulted No growth after 24 hours . All specim... 03/13/20 Blood Culture - Preliminary, Resulted No growth after 24 hours . All specim... 03/13/20 Campylobacter (PCR), Received Pending 03/13/20 Clostridium difficile Toxin A&B PCR, Received Pending 03/13/20 Plesiomonas shigelloides (PCR), Received Pending 03/13/20 Salmonella (PCR)(RED), Received Pending 03/13/20 Vibrio Species (PCR), Received Pending 03/13/20 Vibrio Cholerae (PCR), Received Pending 03/13/20 Yersinia enterocolitica (PCR), Received Pending 03/13/20 Enteroaggregative E. coli (PCR), Received Pending 03/13/20 Enteropathogenic E. coli (PCR), Received Pending 03/13/20 Enterotoxigenic E. coli (PCR), Received Pending 03/13/20 E. coli Shiga-like Toxin (PCR), Received Pending 03/13/20 Escherichia coli 0157 (PCR), Received Pending 03/13/20 Enteroinvasive E. coli/Shigella PCR, Received Pending 03/13/20 Cryptosporidium (PCR), Received Pending 03/13/20 Cyclospora cayetanensis (PCR), Received Pending 03/13/20 Entamoeba histolytica (PCR), Received Pending 03/13/20 Giardia lamblia (PCR), Received Pending 03/13/20 Adenovirus Type F 40/41 (PCR), Received Pending 03/13/20 Astrovirus (PCR), Received Pending 03/13/20 Norovirus GI/GII (PCR), Received Pending 03/13/20 Rotavirus A (PCR), Received Pending 03/13/20 Sapovirus I/II/IV/V (PCR), Received Pending Discharge Medications Scheduled Adalimumab (Humira Pen) Unknown Strength Pen.ij.kit, 1 DOSE SC Q2WK, (Reported) Famotidine (Famotidine) 20 Mg Tablet, 20 MG PO BID, (Reported) Mesalamine (Asacol Hd) 800 Mg Tablet.dr, 1,600 MG PO TID, (Reported) Prednisone (Prednisone) 50 Mg Tablet, 50 MG PO DAILY Scheduled PRN Ondansetron HCl (Ondansetron HCl) 4 Mg Tablet, 4 MG PO Q4H PRN for NAUSEA OR VOMITING, (Reported) Allergies Coded Allergies: No Known Drug Allergies (Verified Allergy, Unknown, 08/02/19) DANIELLA MELO MD Mar 15, 2020 08:03
[2020-03-15 08:23] LABS: PERCENT SATURATION 5.3 % (19.7-50.0)
[2020-03-15 08:25] LABS: ALBUMIN 2.9 GM/DL (3.2-5.2); ALT/SGPT 24 U/L (12-78); BILIRUBIN,TOTAL 0.3 MG/DL (0.2-1.0); BLOOD UREA NITROGEN 8 MG/DL (7-18); CALCIUM LEVEL 8.7 MG/DL (8.5-10.1); CARBON DIOXIDE LEVEL 27 MEQ/L (21-32); CHLORIDE LEVEL 107 MEQ/L (98-107); CREATININE FOR GFR 0.92 MG/DL (0.70-1.30); GLOMERULAR FILTRATION RATE > 60.0 (>60); GLUCOSE, FASTING 80 MG/DL (70-100); POTASSIUM SERUM 3.6 MEQ/L (3.5-5.1); SODIUM LEVEL 139 MEQ/L (136-145); TOTAL PROTEIN 7.2 GM/DL (6.4-8.2)
[2020-03-15] MEDS ORDERED: IRON SUCROSE 100 MG in NS 100 ML OVER 1 HR IV ONE (11:00)
[2020-03-15 14:00] VITALS: BP 140/84
== END 2020-03-15 16:45 | disposition home or self-care (01) | DRG 386 ==
LOC: EDBD 11:48 → M ED 11:48 → M ED INP 15:26 → ENRESERV 15:46 → M MS5PR 17:16
PROVIDERS: ADMIT Internal Medicine; ATTEND General Practice
PROC: 30233N1 Transfusion of Nonautologous Red Blood Cells into Peripheral Vein, Percutaneous Approach (ICD-10-PCS; principal; 2020-03-14)
DX: K51.911 Ulcerative colitis, unspecified with rectal bleeding (principal); D62 Acute posthemorrhagic anemia; I95.1 Orthostatic hypotension; Z79.899 Other long term (current) drug therapy; Z20.828 Contact with and (suspected) exposure to other viral communicable diseases

== ENCOUNTER 2020-03-21 12:15 | Inpatient (IN) | payer OTHER ==
[~2020-03-21] VITALS: Ht 175.3 cm; Wt 73.8 kg
[~2020-03-21 12:15] MED LIST changes: +ASAC800T3 PO; +FAMO20TA PO; +PRED10TA2 PO
[2020-03-21] MEDS ORDERED: MESA800T8 PO (12:32)
[2020-03-21] MEDS ORDERED: PRED50TA PO (12:32)
[2020-03-21] MEDS ORDERED: KETOROLAC 30 MG/ML 1ML VIAL IV ONE (13:30)
[2020-03-21] MEDS ORDERED: PANTOPRAZOLE 40MG VIAL (C9113 PER 1) IV ONE (13:30)
[2020-03-21] MEDS ORDERED: NS 1,000 ML IV ONE ×2 (13:30→15:00)
[2020-03-21 13:52] LABS: BASO % 0.1 % (0.0-1.0); HEMATOCRIT 36.1 % (42.0-52.0); LYMPH # 1.7 10^3/uL (1.5-5.0); LYMPH % 14.5 % (24.0-44.0); MEAN CORPUSCULAR HEMOGLOBIN 25.1 pg (27.0-33.0); MEAN CORPUSCULAR HGB CONC 30.5 g/dl (32.0-36.5); MEAN CORPUSCULAR VOLUME 82.4 fl (80.0-96.0); MONO # 0.2 10^3/uL (0.0-0.8); MONO % 1.7 % (0.0-5.0); NEUTROPHILS # 9.6 10^3/uL (1.5-8.5); NEUTROPHILS % 83.4 % (36.0-66.0); PLATELET COUNT, AUTOMATED 594 10^3/uL (150-450); RED BLOOD COUNT 4.38 10^6/uL (4.30-6.10); WHITE BLOOD COUNT 11.5 10^3/uL (4.0-10.0)
[2020-03-21 14:05] LABS: INR 1.04; PROTHROMBIN TIME 13.8 SECONDS (12.5-14.3)
[2020-03-21 14:17] LABS: ALT/SGPT 22 U/L (12-78); BILIRUBIN,DIRECT < 0.1 MG/DL (0.0-0.2); BILIRUBIN,TOTAL 0.5 MG/DL (0.2-1.0); BLOOD UREA NITROGEN 15 MG/DL (7-18); CALCIUM LEVEL 9.5 MG/DL (8.5-10.1); CARBON DIOXIDE LEVEL 28 MEQ/L (21-32); CHLORIDE LEVEL 102 MEQ/L (98-107); CREATININE FOR GFR 0.97 MG/DL (0.70-1.30); GLOMERULAR FILTRATION RATE > 60.0 (>60); GLUCOSE, FASTING 105 MG/DL (70-100); LIPASE 72 U/L (73-393); POTASSIUM SERUM 4.7 MEQ/L (3.5-5.1); SODIUM LEVEL 135 MEQ/L (136-145); TOTAL PROTEIN 7.6 GM/DL (6.4-8.2)
[2020-03-21] MEDS ORDERED: HUMI40KI SC (14:25)
[2020-03-21 15:24] LABS: CLOSTRIDIUM DIFFICILE PCR POSITIVE (NEGATIVE)
[2020-03-21] MEDS ORDERED: VANCOMYCIN ORAL SOL 250MG/5ML ORAL SYRINGE PO ONE (15:30)
[2020-03-21] MEDS: NS 1,000 ML IV SCH ×2 (16:30→23:11)
[2020-03-21] MEDS ORDERED: FIRV50SO PO (16:41)
[2020-03-21] MEDS ORDERED: VANCOMYCIN HCL 500 MG in D5W MINI-BAG PLUS 100 ML IV SCH (17:00)
[2020-03-21 17:35] VITALS: BP 144/84
--- NOTE | 2020-03-21 18:28 | HPEPDOC ---
[facility] Medical History & Physical Date of Admission Mar 21, 2020 Date of Service: Mar 21, 2020 History and Physical CHIEF COMPLAINT: DIARRHEA HISTORY OF PRESENT ILLNESS: 24 -year-old female with history of ulcerative colitis and chronic mesalamine anemia was recently discharged from [facility] in 03/15/2020 after being treated for acute ulcerative colitis exacerbation with prednisone, and had seen Dr. Crawford with follow-up scheduled. Since hospital discharge patient has been having 2 episodes of watery, mucousy, bloody diarrhea during the day and 6-8 episodes of watery loose stools in the evening. That usually starts around 6 PM with some nausea and dry heaving but no fever or chills, and rectal pain. Patient denies any abdominal pain, dizziness, lightheadedness, shortness of breath or generalized weakness. No syncopal or near syncopal episodes at home. In the emergency room he was found to have positive C. difficile with normal electrolytes, sodium and creatinine. He was orthostatic. Hospitalist was asked to admit the patient. 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 PICKETT, AND Dr. CRAWFORD, patient may be continued on high-dose vancomycin 500 mg every 6 hourly as well as his UC medications mesalamine, prednisone and weekly humira, admit the patient for hydration, monitoring electrolytes and supplementing and rule out stricture or fistula. Patient develops abdominal distention, or worsening pain and fever. PAST MEDICAL HISTORY: Ulcerative colitis on humira, anemia, C. difficile colitis PAST SURGICAL HISTORY: None HOME MEDICATIONS: SEE BELOW ALLERGIES: Please see below. SOCIAL HISTORY: Denies alcohol tobacco or recreational drug use full code FAMILY HISTORY: Mother father alive and well no medical problems REVIEW OF SYSTEMS: 10 point review of system Negative except as per HPI PHYSICAL EXAMINATION: VITAL SIGNS: See below General: No jaundice or icterus no respiratory distress able to speak in full sentences HEENT: NC/AT, EOMI neck is supple full range of motion dry mucous membranes Lungs: CTA B/L no wheezing, rales or rhonchi Heart: +S1S2, sinus rhythm, tachycardic Abd: soft, +BS, nontender, nondistended rebound or guarding. No fluid wave Ext: no edema LABORATORY DATA: See below. MICROBIOLOGY: Please see below. ASSESSMENT: 24 year old male with Ulcerative colitis C. difficile presents with second episode of C. difficile colitis. , Recurrent C. difficile colitis.2nd episode ulcerative colitis, Bloody diarrhea secondary to UC Anemia PLAN :PATIENT WILL BE KEPT IN A CLEAR LIQUID DIET, ADVANCE TO FULL LIQUID AND REGULAR DIET IN THE MORNING. IV FLUIDS TO PREVENT DEHYDRATION. Per GI. Patient is to be continued on Vanco 500 mg every 6 hourly for more than 2 weeks and outpatient follow-up in the office. He is supposed be continued on mesalamine and prednisone high dose. Discharge in the morning is stable. Persistent diarrhea C. difficile colitis Ulcerative colitis Chronic anemia PLAN: Patient will be admitted to medical surgical floor GI has been consulted patient will be started on vancomycin 500 mg by mouth every 6 hours week for 7 days. Clear liquid diet for now. Resume patient's mesalamine and prednisone as previously prescribed await further recommendations from gastroenterology. Compression stockings monitor patient's hemoglobin and hematocrit active bleedi ng. Contact precautions Vital Signs Vital Signs Date Time Temp Pulse Resp B/P (MAP) Pulse Ox O2 Delivery O2 Flow Rate FiO2 03/21/20 13:43 114 140/93 (109) 03/21/20 13:30 16 100 Room Air 03/21/20 12:24 97.6 Laboratory Data Labs 24H Laboratory Tests 2 03/21/20 13:33: Immature Granulocyte % (Auto) 0.3, Neutrophils (%) (Auto) 83.4H, Lymphocytes (%) (Auto) 14.5L, Monocytes (%) (Auto) 1.7, Eosinophils (%) (Auto) 0.0, Basophils (%) (Auto) 0.1, Neutrophils # (Auto) 9.6H, Lymphocytes # (Auto) 1.7, Monocytes # (Auto) 0.2, Eosinophils # (Auto) 0.0, Basophils # (Auto) 0.0, Nucleated Red Blood Cells % (auto) 0.0, Prothrombin Time 13.8, Prothromb Time International Ratio 1.04, Anion Gap 5L, Glomerular Filtration Rate > 60.0, Calcium Level 9.5, Total Bilirubin 0.5, Direct Bilirubin < 0.1, Aspartate Amino Transf (AST/SGOT) 8, Alanine Aminotransferase (ALT/SGPT) 22, Alkaline Phosphatase 75, Total Protein 7.6, Albumin 3.0L, Albumin/Globulin Ratio 0.7, Lipase 72L 03/21/20 14:18: CBC/BMP Laboratory Tests 03/21/20 13:33 Home Medications Scheduled Adalimumab (Humira) 40 Mg/0.8 Ml Syringekit, 40 MG SC Q2WK Famotidine (Famotidine) 20 Mg Tablet, 20 MG PO QAM Mesalamine (Mesalamine) 800 Mg Tablet.dr, 1,600 MG PO TID Prednisone (Prednisone) 50 Mg Tablet, 50 MG PO DAILY Vancomycin HCl (Firvanq) 50 Mg/1 Ml Soln.recon, 500 MG PO Q6H Scheduled PRN Ondansetron HCl (Ondansetron HCl) 4 Mg Tablet, 4 MG PO Q4H PRN for NAUSEA OR VOMITING Allergies Coded Allergies: No Known Drug Allergies (Verified Allergy, Unknown, 08/02/19) A-FIB/CHADSVASC A-FIB History Current/History of A-Fib/PAF?: No Current PO Anticoag Therapy: No Age/Risk Factor Scoring CHADSVASC: CHADSVASC Response (Comments) Value Age Risk Factor Age < 65 years old 0 Gender Risk Factor Male 0 Hx of CHF No 0 Hx of HTN No 0 Hx of Stroke/TIA/or VTE No 0 Hx of Diabetes No 0 Hx of Vascular Disease No 0 Total 0 Treatment Treatment ordered: NONE DANIELLA MELO MD Mar 21, 2020 14:47
[2020-03-21] MEDS: MESALAMINE 400 MG CAPSULE DELAYED RELEASE (DELZICOL) PO SCH ×2 (18:41→20:18)
[2020-03-21 22:00] VITALS: BP 138/72
[2020-03-21] MEDS: VANCOMYCIN ORAL SOL 250MG/5ML ORAL SYRINGE PO SCH (23:14)
[2020-03-22] MEDS: VANCOMYCIN ORAL SOL 250MG/5ML ORAL SYRINGE PO SCH ×2 (05:53→12:02)
[2020-03-22 06:00] VITALS: BP 123/76
[2020-03-22 07:06] LABS: BASO % 0.4 % (0.0-1.0); EOS # 0.2 10^3/uL (0.0-0.5); EOS % 1.6 % (0.0-3.0); HEMATOCRIT 29.9 % (42.0-52.0); HEMOGLOBIN 9.1 g/dl (13.5-17.5); LYMPH # 2.9 10^3/uL (1.5-5.0); LYMPH % 26.5 % (24.0-44.0); MEAN CORPUSCULAR HEMOGLOBIN 25.2 pg (27.0-33.0); MEAN CORPUSCULAR HGB CONC 30.4 g/dl (32.0-36.5); MEAN CORPUSCULAR VOLUME 82.8 fl (80.0-96.0); MONO # 0.8 10^3/uL (0.0-0.8); MONO % 7.5 % (0.0-5.0); NEUTROPHILS % 63.6 % (36.0-66.0); PLATELET COUNT, AUTOMATED 511 10^3/uL (150-450); RED BLOOD COUNT 3.61 10^6/uL (4.30-6.10)
[2020-03-22] MEDS ORDERED: FIRV50SO PO (07:23)
[2020-03-22 07:27] LABS: ERYTHROCYTE SEDIMENTATION RATE 31 mm/hr (0-15)
[2020-03-22 07:29] LABS: BLOOD UREA NITROGEN 8 MG/DL (7-18); CALCIUM LEVEL 8.4 MG/DL (8.5-10.1); CARBON DIOXIDE LEVEL 26 MEQ/L (21-32); CHLORIDE LEVEL 107 MEQ/L (98-107); CREATININE FOR GFR 0.85 MG/DL (0.70-1.30); GLOMERULAR FILTRATION RATE > 60.0 (>60); GLUCOSE, FASTING 77 MG/DL (70-100); POTASSIUM SERUM 3.9 MEQ/L (3.5-5.1); SODIUM LEVEL 139 MEQ/L (136-145)
[2020-03-22] MEDS: NS 1,000 ML IV SCH (08:58)
[2020-03-22] MEDS: MESALAMINE 400 MG CAPSULE DELAYED RELEASE (DELZICOL) PO SCH (08:59)
[2020-03-22] MEDS ORDERED: predniSONE 50 MG TAB PO SCH (09:00)
[2020-03-22] MEDS ORDERED: predniSONE 20 MG TAB PO SCH (09:00)
[2020-03-22] MEDS ORDERED: FAMOTIDINE 20 MG TAB PO SCH (09:00)
--- NOTE | 2020-03-22 10:34 | DS.PDOC ---
Discharge Summary General Date of Admission Mar 21, 2020 at 14:48 Date of Discharge 03/22/20 consultants by telephone: GI Dr. Fisher and GI Dr. Gamble Discharge Summary DISCHARGE DIAGNOSES: C. difficile colitis Ulcerative colitis Chronic anemia DISCHARGE MEDICATIONS: see below DISCHARGE INSTRUCTIONS: Per Dr. Gamble: Vanco 500 mg po q6hrs for more than 2 weeks, continue prednisone 50mg daily for 1 month, humira weekly, and mesalamine gi and pcp fu within 7days. contact isolation at home and handwashing. If you develop a fever greater than 100.4, increasing abdominal distention. Intractable nausea and vomiting. Please call your bench repair technician and come to the ER for reevaluation to rule out stricture or fistula. HISTORY OF PRESENT ILLNESS: 24-year-old male with history of C. difficile colitis, ulcerative colitis, on Humira mesalamine and prednisone recently admitted 03/13/2022 03/15/2020 with ulcerative colitis exacerbation which was treated with prednisone 50 mg daily, mesalamine, Cipro and Flagyl. Patient was previously treated for C. difficile colitis in January with vancomycin and DIFICID with resolution. Since hospital discharge he has noted increased bowel movements, usually at night time, starting at 6 PM about 8-10 times nightly without any dizziness, lightheadedness. He has noted some blood along with this, but was not found to be anemic on presentation in the ER, he was orthostatic. Hemoglobin was stable. Hospitalist was called to admit him for C. difficile colitis secondary episode. Per Dr. Gamble, patient is to continue with more than 2 weeks worth of van comycin up to 4 weeks. Vancomycin 500 every 6 hourly. Continue on his UC treatment, prednisone 50 daily for at least 1 month. Humira weekly and mesalamine. Patient did not have any fever, abdominal distention, shortness of breath, chest pain, pressure, tightness, lightheadedness, dizziness or near s yncopal episode with normal hemoglobin and did not require any RBC transfusion. Patient was initially kept on a clear liquid diet which was slowly advanced to regular diet which he tolerated prior to hospital discharge DISCHARGE PHYSICAL EXAMINATION: VITAL SIGNS: See below General: No jaundice or icterus no respiratory distress able to speak in full sentences HEENT: NC/AT, EOMI neck is supple full range of motion dry mucous membranes Lungs: CTA B/L no wheezing, rales or rhonchi Heart: +S1S2, sinus rhythm, tachycardic Abd: soft, +BS, nontender, nondistended rebound or guarding. No fluid wave Ext: no edema LABORATORY DATA: See below. MICROBIOLOGY: Please see below. TIME SPENT ON HOSPITAL DISCHARGE: 30 MIN. Vital Signs/I&Os Vital Signs Date Time Temp Pulse Resp B/P (MAP) Pulse Ox O2 Delivery O2 Flow Rate FiO2 03/22/20 06:00 98.6 79 18 123/76 (92) 98 Room Air I&O- Last 24 Hours up to 6 AM 03/22/20 06:00 Intake Total 5120 ml Output Total 250 ml Balance 4870 ml Laboratory Data Labs 24H Laboratory Tests 2 03/21/20 13:33: Immature Granulocyte % (Auto) 0.3, Neutrophils (%) (Auto) 83.4H, Lymphocytes (%) (Auto) 14.5L, Monocytes (%) (Auto) 1.7, Eosinophils (%) (Auto) 0.0, Basophils (%) (Auto) 0.1, Neutrophils # (Auto) 9.6H, Lymphocytes # (Auto) 1.7, Monocytes # (Auto) 0.2, Eosinophils # (Auto) 0.0, Basophils # (Auto) 0.0, Nucleated Red Blood Cells % (auto) 0.0, Prothrombin Time 13.8, Prothromb Time International Ratio 1.04, Anion Gap 5L, Glomerular Filtration Rate > 60.0, Calcium Level 9.5, Total Bilirubin 0.5, Direct Bilirubin < 0.1, Aspartate Amino Transf (AST/SGOT) 8, Alanine Aminotransferase (ALT/SGPT) 22, Alkaline Phosphatase 75, Total Protein 7.6, Albumin 3.0L, Albumin/Globulin Ratio 0.7, Lipase 72L 03/21/20 14:18: Clostridium difficile [id number] PRESUMPTIVE NEGATIVE, Clostridium difficile Toxin (PCR) POSITIVEA, Coronavirus (COVID-19)(PCR) NEGATIVE 03/22/20 06:28: Immature Granulocyte % (Auto) 0.4, Neutrophils (%) (Auto) 63.6, Lymphocytes (%) (Auto) 26.5, Monocytes (%) (Auto) 7.5H, Eosinophils (%) (Auto) 1.6, Basophils (%) (Auto) 0.4, Neutrophils # (Auto) 7.0, Lymphocytes # (Auto) 2.9, Monocytes # (Auto) 0.8, Eosinophils # (Auto) 0.2, Basophils # (Auto) 0.0, Nucleated Red Blood Cells % (auto) 0.0, Anion Gap 6L, Glomerular Filtration Rate > 60.0, Calcium Level 8.4L, Erythrocyte Sedimentation Rate 31H, Magnesium Level 2.0, C- Reactive Protein, Quantitative 1.20H, Procalcitonin <0.05 CBC/BMP Laboratory Tests 03/21/20 13:33 03/22/20 06:28 Microbiology Microbiology 03/21/20 Campylobacter (PCR), Received Pending 03/21/20 Clostridium difficile Toxin A&B PCR, Received Pending 03/21/20 Plesiomonas shigelloides (PCR), Received Pending 03/21/20 Salmonella (PCR)(RED), Received Pending 03/21/20 Vibrio Species (PCR), Received Pending 03/21/20 Vibrio Cholerae (PCR), Received Pending 03/21/20 Yersinia enterocolitica (PCR), Received Pending 03/21/20 Enteroaggregative E. coli (PCR), Received Pending 03/21/20 Enteropathogenic E. coli (PCR), Received Pending 03/21/20 Enterotoxigenic E. coli (PCR), Received Pending 03/21/20 E. coli Shiga-like Toxin (PCR), Received Pending 03/21/20 Escherichia coli 0157 (PCR), Received Pending 03/21/20 Enteroinvasive E. coli/Shigella PCR, Received Pending 03/21/20 Cryptosporidium (PCR), Received Pending 03/21/20 Cyclospora cayetanensis (PCR), Received Pending 03/21/20 Entamoeba histolytica (PCR), Received Pending 03/21/20 Giardia lamblia (PCR), Received Pending 03/21/20 Adenovirus Type F 40/41 (PCR), Received Pending 03/21/20 Astrovirus (PCR), Received Pending 03/21/20 Norovirus GI/GII (PCR), Received Pending 03/21/20 Rotavirus A (PCR), Received Pending 03/21/20 Sapovirus I/II/IV/V (PCR), Received Pending Discharge Medications Scheduled Adalimumab (Humira) 40 Mg/0.8 Ml Syringekit, 40 MG SC Q2WK, (Reported) Famotidine (Famotidine) 20 Mg Tablet, 20 MG PO QAM, (Reported) Mesalamine (Mesalamine) 800 Mg Tablet.dr, 1,600 MG PO TID, (Reported) Prednisone (Prednisone) 50 Mg Tablet, 50 MG PO DAILY, (Reported) Vancomycin HCl (Firvanq) 50 Mg/1 Ml Soln.recon, 500 MG PO Q6H Scheduled PRN Ondansetron HCl (Ondansetron HCl) 4 Mg Tablet, 4 MG PO Q4H PRN for NAUSEA OR VOMITING, (Reported) Allergies Coded Allergies: No Known Drug Allergies (Verified Allergy, Unknown, 08/02/19) DANIELLA MELO MD Mar 22, 2020 10:34
[2020-03-22] MEDS ORDERED: VANCOMYCIN ORAL SOL 250MG/5ML ORAL SYRINGE PO SCH ×2 (11:38)
== END 2020-03-22 12:25 | disposition home or self-care (01) | DRG 372 ==
LOC: M ED 12:15 → EDBD 12:15 → M ED INP 14:48 → ENRESERV 15:45 → M MS5PR 17:30
PROVIDERS: ADMIT General Practice; ATTEND General Practice
DX: A04.71 Enterocolitis due to Clostridium difficile, recurrent (principal); K51.90 Ulcerative colitis, unspecified, without complications; D64.9 Anemia, unspecified; Z79.52 Long term (current) use of systemic steroids; Z79.899 Other long term (current) drug therapy

== ENCOUNTER 2020-04-24 12:17 | Day surgery (SDC) | payer OTHER ==
[~2020-04-24] VITALS: Ht 172.7 cm; Wt 79.6 kg
[~2020-04-24 12:17] MED LIST changes: +FIRV50SO PO; +HUMI40KI SC; +LIDOCAINE 2% 100MG/5ML SDV (FOR ANES.) As Ordered ONE; +NS 1,000 ML IV ONE; +propofoL 200 MG/20 ML VIAL As Ordered ONE
[2020-04-24] MEDS ORDERED: propofoL 200 MG/20 ML VIAL As Ordered ONE ×3 (14:48→15:05)
[2020-04-24 15:41] VITALS: BP 105/65
--- NOTE | 2020-04-24 15:41 | ROOR ---
Patient Name: Eric Heath Procedure Date: 04/24/2020 2:28 PM Date of : 1995 Age: 24 Room: [facility] Gender: Male Note Status: Finalized Procedure: Colonoscopy Indications: Chronic diarrhea, Hematochezia, Follow-up of ulcerative colitis Providers: Tj Apodaca MD Referring MD: GEETHA INIGUEZ MD Requesting Provider: Medicines: Monitored Anesthesia Care Complications: No immediate complications. Procedure: Pre-Anesthesia Assessment: - Prior to the procedure, a History and Physical was performed, and patient medications and allergies were reviewed. The patient is competent. The risks and benefits of the procedure and the sedation options and risks were discussed with the patient. All questions were answered and informed consent was obtained. Patient identification and proposed procedure were verified by the physician, the nurse and the anesthesiologist in the procedure room. Mental Status Examination: alert and oriented. Airway Examination: normal oropharyngeal airway and neck mobility. Respiratory Examination: clear to auscultation. CV Examination: normal. Prophylactic Antibiotics: The patient does not require prophylactic antibiotics. Prior Anticoagulants: The patient has taken no previous anticoagulant or antiplatelet agents. ASA Grade Assessment: II - A patient with mild systemic disease. After reviewing the risks and benefits, the patient was deemed in satisfactory condition to undergo the procedure. The anesthesia plan was to use monitored anesthesia care (MAC). Immediately prior to administration of medications, the patient was re-assessed for adequacy to receive sedatives. The heart rate, respiratory rate, oxygen saturations, blood pressure, adequacy of pulmonary ventilation, and response to care were monitored throughout the procedure. The physical status of the patient was re-assessed after the procedure. The Colonoscope was introduced through the anus and advanced to the terminal ileum, with identification of the appendiceal orifice and IC valve. The colonoscopy was performed without difficulty. The patient tolerated the procedure well. The quality of the bowel preparation was fair except the cecum was poor. The terminal ileum, ileocecal valve, appendiceal orifice, and rectum were photographed. Scope insertion time was 3 minutes. Scope withdrawal time was 12 minutes. The total duration of the procedure was 16 minutes. Findings: The perianal and digital rectal examinations were normal. Diffuse inflammation, mild in severity and characterized by friability, granularity, loss of vascularity and aphthous ulcerations was found at 5 cm from the IC valve. Biopsies were taken with a cold forceps for histology. Verification of patient identification for the specimen was done by the physician and nurse using the patient's name, date and medical record number. Estimated blood loss was minimal. A benign-appearing, intrinsic moderate stenosis measuring 2 cm (in length) x 1.2 cm (inner diameter) was found in the proximal ascending colon and was traversed. Biopsies were taken with a cold forceps for histology. A continuous area of bleeding ulcerated mucosa with stigmata of recent bleeding was present from rectum to cecum. Biopsies were taken with a cold forceps for histology. A diffuse pseudomembrane was found from rectum to descending colon. Biopsies for histology were taken with a cold forceps from the right colon, left colon and rectosigmoid colon for evaluation of microscopic colitis. Non-bleeding external and internal hemorrhoids were found during endoscopy. The hemorrhoids were medium-sized. Retroflexion in the rectum was not performed due to severe rectal inflammation. Impression: - Ileitis. Biopsied. 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 Biopsied. - Mucosal ulceration. Biopsied. - Pseudomembranous enterocolitis. - Non-bleeding external and internal hemorrhoids. Recommendation: - Patient has a contact number available for emergencies. The signs and symptoms of potential delayed complications were discussed with the patient. Return to normal activities tomorrow. Written discharge instructions were provided to the patient. - Advance diet as tolerated. - Continue present medications. - Vancocin (vancomycin) 500 mg PO QID for 2 weeks. - Take probiotic ( align) daily for now. - No aspirin, ibuprofen, naproxen, or other non-steroidal anti-inflammatory drugs. - Use Entyvio (vedolizumab) intravenous infusion: 300 mg IV once per week at week 0, week 2, and week 6. - Await pathology results. - Based on the pathology and response to Entyvio to consider Fecal transplant. Due to severe colitis, to consider total colectomy if develops sepsis. - Refer to a colo-rectal surgeon at appointment to be scheduled. - Return to GI clinic 1 - 2 weeks. Please call GI clinic @ [phone] for apppointment date and time. - Return to primary care physician. Procedure Code(s): --- Professional --- 18688, Colonoscopy, flexible; with biopsy, single or multiple Diagnosis Code(s): --- Professional --- K52.9, Noninfective gastroenteritis and colitis, unspecified K64.8, Other hemorrhoids K51.912, Ulcerative colitis, unspecified with intestinal obstruction K63.3, Ulcer of intestine A04.72, Enterocolitis due to Clostridium difficile, not specified as recurrent K92.1, Melena (includes Hematochezia) CPT copyright 2019 [employer]. All rights reserved. The codes documented in this report are preliminary and upon hair stylist review may be revised to meet current compliance requirements. Tj Apodaca MD Tj Apodaca MD 04/24/2020 3:41:08 PM Electronically signed by Tj Apodaca MD Number of Addenda: 0 Note Initiated On: 04/24/2020 2:28 PM Estimated Blood Loss: Estimated blood loss was minimal.
== END 2020-04-24 16:10 | disposition home or self-care (01) ==
LOC: M OPP 12:17
PROVIDERS: ATTEND Internal Medicine Gastroenterology
DX: K51.912 Ulcerative colitis, unspecified with intestinal obstruction (principal); K64.8 Other hemorrhoids; A04.72 Enterocolitis due to Clostridium difficile, not specified as recurrent; K92.1 Melena; K52.9 Noninfective gastroenteritis and colitis, unspecified; Z79.899 Other long term (current) drug therapy

== ENCOUNTER → 2020-04-25 | Outpatient (CLI) | payer OTHER ==
[~2020-04-25] MED LIST changes: -LIDOCAINE 2% 100MG/5ML SDV (FOR ANES.) As Ordered ONE; -NS 1,000 ML IV ONE; -propofoL 200 MG/20 ML VIAL As Ordered ONE
[2020-04-25 16:36] LABS: BASO # 0.1 10^3/uL (0.0-0.2); BASO % 0.6 % (0.0-1.0); EOS # 0.2 10^3/uL (0.0-0.5); EOS % 1.7 % (0.0-3.0); HEMATOCRIT 31.8 % (42.0-52.0); LYMPH # 3.4 10^3/uL (1.5-5.0); LYMPH % 37.4 % (24.0-44.0); MEAN CORPUSCULAR HEMOGLOBIN 22.8 pg (27.0-33.0); MEAN CORPUSCULAR HGB CONC 28.3 g/dl (32.0-36.5); MEAN CORPUSCULAR VOLUME 80.5 fl (80.0-96.0); MONO # 0.7 10^3/uL (0.0-0.8); MONO % 7.5 % (0.0-5.0); NEUTROPHILS # 4.8 10^3/uL (1.5-8.5); NEUTROPHILS % 52.2 % (36.0-66.0); PLATELET COUNT, AUTOMATED 663 10^3/uL (150-450); RED BLOOD COUNT 3.95 10^6/uL (4.30-6.10); WHITE BLOOD COUNT 9.1 10^3/uL (4.0-10.0)
[2020-04-25 16:58] LABS: ALT/SGPT 69 U/L (12-78); BILIRUBIN,DIRECT < 0.1 MG/DL (0.0-0.2); BILIRUBIN,TOTAL 0.2 MG/DL (0.2-1.0); BLOOD UREA NITROGEN 8 MG/DL (7-18); C REACTIVE PROTEIN QUANTITATIV 0.66 MG/DL (0.00-0.30); CALCIUM LEVEL 8.8 MG/DL (8.5-10.1); CARBON DIOXIDE LEVEL 29 MEQ/L (21-32); CHLORIDE LEVEL 104 MEQ/L (98-107); CREATININE FOR GFR 0.95 MG/DL (0.70-1.30); GLOMERULAR FILTRATION RATE > 60.0 (>60); GLUCOSE, FASTING 103 MG/DL (70-100); POTASSIUM SERUM 4.1 MEQ/L (3.5-5.1); SODIUM LEVEL 138 MEQ/L (136-145); TOTAL PROTEIN 7.6 GM/DL (6.4-8.2)
[2020-04-25 17:45] LABS: ERYTHROCYTE SEDIMENTATION RATE 54 mm/hr (0-15)
== END ==
LOC: M LAB 15:40
PROVIDERS: ATTEND Internal Medicine Gastroenterology
DX: A04.72 Enterocolitis due to Clostridium difficile, not specified as recurrent (principal); K51.911 Ulcerative colitis, unspecified with rectal bleeding

== ENCOUNTER → 2020-05-06 | Outpatient (REF) | payer OTHER ==
[2020-05-07 15:40] LABS: CLOSTRIDIUM DIFFICILE PCR NEGATIVE (NEGATIVE)
== END ==
LOC: M LAB REF 14:39
PROVIDERS: ATTEND Internal Medicine Gastroenterology
DX: K51.911 Ulcerative colitis, unspecified with rectal bleeding (principal); A04.72 Enterocolitis due to Clostridium difficile, not specified as recurrent

== ENCOUNTER 2020-05-10 08:01 | Outpatient (CLI) | payer OTHER ==
[~2020-05-10] VITALS: Ht 172.7 cm; Wt 79.5 kg
[~2020-05-10 08:01] MED LIST changes: +VEDOLIZUMAB 300 MG in NS 250 ML IV ONE
[2020-05-10 08:17] VITALS: BP 127/78
[2020-05-10 08:29] VITALS: BP 127/78
[2020-05-10 09:33] VITALS: BP 122/76
== END 2020-05-10 09:40 | disposition home or self-care (01) ==
LOC: M INFU 08:01
PROVIDERS: ATTEND Internal Medicine Gastroenterology
DX: K51.90 Ulcerative colitis, unspecified, without complications (principal)
CPT/HCPCS: 96365; J3380

== ENCOUNTER 2020-05-25 16:19 | Outpatient (CLI) | payer OTHER ==
[~2020-05-25] VITALS: Ht 172.7 cm; Wt 79.5 kg
[2020-05-25 16:30] VITALS: BP 132/75
[2020-05-25 17:25] VITALS: BP 124/72
== END 2020-05-25 17:30 | disposition home or self-care (01) ==
LOC: M INFU 16:19
PROVIDERS: ATTEND Internal Medicine Gastroenterology
DX: K51.90 Ulcerative colitis, unspecified, without complications (principal)
CPT/HCPCS: 96365; J3380

== ENCOUNTER 2020-06-21 08:03 | Outpatient (CLI) | payer OTHER ==
[~2020-06-21] VITALS: Ht 172.7 cm; Wt 79.5 kg
[2020-06-21 08:05] VITALS: BP 130/76
[2020-06-21 09:22] LABS: BASO % 0.4 % (0.0-1.0); EOS # 0.2 10^3/uL (0.0-0.5); EOS % 2.4 % (0.0-3.0); HEMATOCRIT 31.5 % (42.0-52.0); HEMOGLOBIN 8.8 g/dl (13.5-17.5); LYMPH # 2.8 10^3/uL (1.5-5.0); LYMPH % 28.5 % (24.0-44.0); MEAN CORPUSCULAR HGB CONC 27.9 g/dl (32.0-36.5); MEAN CORPUSCULAR VOLUME 75.2 fl (80.0-96.0); MONO # 0.6 10^3/uL (0.0-0.8); MONO % 6.4 % (2.0-8.0); NEUTROPHILS # 6.2 10^3/uL (1.5-8.5); PLATELET COUNT, AUTOMATED 609 10^3/uL (150-450); RED BLOOD COUNT 4.19 10^6/uL (4.30-6.10)
[2020-06-21 09:40] VITALS: BP 113/65
[2020-06-21 09:45] LABS: ERYTHROCYTE SEDIMENTATION RATE 46 mm/hr (0-15)
[2020-06-21 09:49] LABS: BLOOD UREA NITROGEN 17 MG/DL (7-18); C REACTIVE PROTEIN QUANTITATIV < 0.30 MG/DL (0.00-0.30); CREATININE FOR GFR 0.95 MG/DL (0.70-1.30); GLOMERULAR FILTRATION RATE > 60.0 (>60); IRON (FE) 17 UG/DL (65-175); PERCENT SATURATION 3.4 % (19.7-50.0); TOTAL IRON BINDING CAPACITY 507 UG/DL (250-450)
== END 2020-06-21 09:40 | disposition home or self-care (01) ==
LOC: M INFU 08:03
PROVIDERS: ATTEND Internal Medicine Gastroenterology
DX: K51.90 Ulcerative colitis, unspecified, without complications (principal)
CPT/HCPCS: 36592; 82565; 83550; 84520; 85025; 85652; 86140; 96365; J3380

== ENCOUNTER → 2020-07-13 | Outpatient (CLI) | payer OTHER ==
[~2020-07-13] MED LIST changes: -VEDOLIZUMAB 300 MG in NS 250 ML IV ONE
[2020-07-13 16:38] LABS: BASO # 0.1 10^3/uL (0.0-0.2); BASO % 0.5 % (0.0-1.0); EOS % 0.3 % (0.0-3.0); HEMATOCRIT 35.2 % (42.0-52.0); HEMOGLOBIN 9.8 g/dl (13.5-17.5); LYMPH # 1.9 10^3/uL (1.5-5.0); LYMPH % 15.7 % (24.0-44.0); MEAN CORPUSCULAR HEMOGLOBIN 20.9 pg (27.0-33.0); MEAN CORPUSCULAR HGB CONC 27.8 g/dl (32.0-36.5); MEAN CORPUSCULAR VOLUME 75.1 fl (80.0-96.0); MONO # 0.2 10^3/uL (0.0-0.8); NEUTROPHILS # 9.6 10^3/uL (1.5-8.5); NEUTROPHILS % 81.2 % (36.0-66.0); PLATELET COUNT, AUTOMATED 538 10^3/uL (150-450); RED BLOOD COUNT 4.69 10^6/uL (4.30-6.10); WHITE BLOOD COUNT 11.8 10^3/uL (4.0-10.0)
[2020-07-13 19:06] LABS: ERYTHROCYTE SEDIMENTATION RATE 1 mm/hr (0-15)
== END ==
LOC: M LAB 16:18
PROVIDERS: ATTEND Internal Medicine Gastroenterology
DX: K51.911 Ulcerative colitis, unspecified with rectal bleeding (principal); K92.1 Melena

== ENCOUNTER 2020-07-24 09:29 | Day surgery (SDC) | payer OTHER ==
[~2020-07-24] VITALS: Ht 172.7 cm; Wt 84.8 kg
[~2020-07-24 09:29] MED LIST changes: +ASPI81TA26 PO; +LIDOCAINE 2% 100MG/5ML SDV (FOR ANES.) As Ordered ONE; +NS 1,000 ML IV ONE; +propofoL 200 MG/20 ML VIAL As Ordered ONE
--- NOTE | 2020-07-24 11:51 | ROOR ---
Patient Name: Eric Heath Procedure Date: 07/24/2020 10:24 AM Date of : 1995 Age: 24 Room: [facility] Gender: Male Note Status: Finalized Procedure: Colonoscopy Indications: Hematochezia Providers: Tj Apodaca MD Referring MD: GEETHA INIGUEZ MD Requesting Provider: Medicines: Monitored Anesthesia Care Complications: No immediate complications. Procedure: Pre-Anesthesia Assessment: - Prior to the procedure, a History and Physical was performed, and patient medications and allergies were reviewed. The patient is competent. The risks and benefits of the procedure and the sedation options and risks were discussed with the patient. All questions were answered and informed consent was obtained. Patient identification and proposed procedure were verified by the physician, the nurse and the anesthesiologist in the procedure room. Mental Status Examination: alert and oriented. Airway Examination: normal oropharyngeal airway and neck mobility. Respiratory Examination: clear to auscultation. CV Examination: normal. Prophylactic Antibiotics: The patient does not require prophylactic antibiotics. Prior Anticoagulants: The patient has taken no previous anticoagulant or antiplatelet agents. ASA Grade Assessment: II - A patient with mild systemic disease. After reviewing the risks and benefits, the patient was deemed in satisfactory condition to undergo the procedure. The anesthesia plan was to use monitored anesthesia care (MAC). Immediately prior to administration of medications, the patient was re-assessed for adequacy to receive sedatives. The heart rate, respiratory rate, oxygen saturations, blood pressure, adequacy of pulmonary ventilation, and response to care were monitored throughout the procedure. The physical status of the patient was re-assessed after the procedure. The Colonoscope was introduced through the anus and advanced to the terminal ileum, with identification of the appendiceal orifice and IC valve. The colonoscopy was performed without difficulty. The patient tolerated the procedure well. The quality of the bowel preparation was good. The terminal ileum, ileocecal valve, appendiceal orifice, and rectum were photographed. Scope insertion time was 3 minutes. Scope withdrawal time was 8 minutes. The total duration of the procedure was 12 minutes. Findings: The perianal and digital rectal examinations were normal. The ileocecal valve contained a single (solitary) ten mm ulcer. No bleeding was present. No stigmata of recent bleeding were seen. Biopsies were taken with a cold forceps for histology. Verification of patient identification for the specimen was done by the physician and nurse using the patient's name, date and medical record number. Estimated blood loss was minimal. Diffuse severe mucosal changes characterized by altered vascularity, granularity, mucus and serpentine ulcerations were found from rectum to sigmoid colon. Biopsies were taken with a cold forceps for histology. A benign-appearing, intrinsic mild stenosis ( much improved from past exam, widely patent) was found in the proximal ascending colon and was traversed. Biopsies were taken with a cold forceps for histology. Non-bleeding external and internal hemorrhoids were found during endoscopy. The hemorrhoids were small. Impression: - A single (solitary) ulcer at the ileocecal valve. Biopsied. - Diffuse severe mucosal changes were found from rectum to sigmoid colon secondary to proctosigmoid colitis. Biopsied. 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 Biopsied. - Non-bleeding external and internal hemorrhoids. Recommendation: - Patient has a contact number available for emergencies. The signs and symptoms of potential delayed complications were discussed with the patient. Return to normal activities tomorrow. Written discharge instructions were provided to the patient. - High fiber diet. - Continue present medications. - Await pathology results. - Use Imuran (azathioprine) to be added to the IBD therapy ( dual therapy) PO daily for 3 months. - Taper prednisone. - Check with Clinic for the interval labs to be done for monitoring in 2 weeks. - Return to GI clinic in [facility] (address [address], [address], [place], [facility]) in 4 -- 6 weeks. Please call GI clinic @ [phone] for apppointment date and time. - Return to primary care physician. Procedure Code(s): --- Professional --- 28014, Colonoscopy, flexible; with biopsy, single or multiple Diagnosis Code(s): --- Professional --- K63.3, Ulcer of intestine K63.89, Other specified diseases of intestine K64.8, Other hemorrhoids K92.1, Melena (includes Hematochezia) CPT copyright 2019 [employer]. All rights reserved. The codes documented in this report are preliminary and upon canoe inspector final review may be revised to meet current compliance requirements. Tj Apodaca MD Tj Apodaca MD 07/24/2020 11:51:05 AM Electronically signed by Tj Apodaca MD Number of Addenda: 0 Note Initiated On: 07/24/2020 10:24 AM Estimated Blood Loss: Estimated blood loss was minimal.
[2020-07-24 12:02] VITALS: BP 137/67
== END 2020-07-24 12:05 | disposition home or self-care (01) ==
LOC: M OPP 09:29
PROVIDERS: ATTEND Internal Medicine Gastroenterology
DX: K63.3 Ulcer of intestine (principal); K63.89 Other specified diseases of intestine; K64.8 Other hemorrhoids; K92.1 Melena; Z79.82 Long term (current) use of aspirin; Z79.899 Other long term (current) drug therapy

== ENCOUNTER 2020-08-16 08:05 | Outpatient (CLI) | payer OTHER ==
[~2020-08-16] VITALS: Ht 172.7 cm; Wt 79.5 kg
[~2020-08-16 08:05] MED LIST changes: -LIDOCAINE 2% 100MG/5ML SDV (FOR ANES.) As Ordered ONE; -NS 1,000 ML IV ONE; +VEDOLIZUMAB 300 MG in NS 250 ML IV ONE; -propofoL 200 MG/20 ML VIAL As Ordered ONE
[2020-08-16 08:24] VITALS: BP 139/65
[2020-08-16] MEDS ORDERED: ENTY1INJ IV (09:16)
[2020-08-16 09:24] VITALS: BP 134/85
== END 2020-08-16 09:20 | disposition home or self-care (01) ==
LOC: M INFU 08:05
PROVIDERS: ATTEND Internal Medicine Gastroenterology
DX: K51.90 Ulcerative colitis, unspecified, without complications (principal)
CPT/HCPCS: 96365; J3380

== ENCOUNTER → 2020-08-22 | Outpatient (CLI) | payer OTHER ==
[~2020-08-22] MED LIST changes: +ENTY1INJ IV; +PANT40TA29 PO; -VEDOLIZUMAB 300 MG in NS 250 ML IV ONE
[2020-08-22 14:41] LABS: BASO # 0.1 10^3/uL (0.0-0.2); BASO % 1.1 % (0.0-1.0); EOS # 0.4 10^3/uL (0.0-0.5); HEMATOCRIT 39.9 % (42.0-52.0); HEMOGLOBIN 11.7 g/dl (13.5-17.5); LYMPH # 1.5 10^3/uL (1.5-5.0); MEAN CORPUSCULAR HEMOGLOBIN 24.4 pg (27.0-33.0); MEAN CORPUSCULAR HGB CONC 29.3 g/dl (32.0-36.5); MEAN CORPUSCULAR VOLUME 83.3 fl (80.0-96.0); MONO # 0.3 10^3/uL (0.0-0.8); MONO % 7.2 % (2.0-8.0); NEUTROPHILS # 2.3 10^3/uL (1.5-8.5); NEUTROPHILS % 50.5 % (36.0-66.0); PLATELET COUNT, AUTOMATED 326 10^3/uL (150-450); RED BLOOD COUNT 4.79 10^6/uL (4.30-6.10); WHITE BLOOD COUNT 4.6 10^3/uL (4.0-10.0)
[2020-08-22 15:05] LABS: ERYTHROCYTE SEDIMENTATION RATE 13 mm/hr (0-15)
[2020-08-22 15:14] LABS: ALBUMIN 3.8 GM/DL (3.2-5.2); ALT/SGPT 26 U/L (12-78); BILIRUBIN,DIRECT 0.1 MG/DL (0.0-0.2); BILIRUBIN,TOTAL 0.2 MG/DL (0.2-1.0); BLOOD UREA NITROGEN 10 MG/DL (7-18); CALCIUM LEVEL 9.1 MG/DL (8.5-10.1); CARBON DIOXIDE LEVEL 30 MEQ/L (21-32); CHLORIDE LEVEL 107 MEQ/L (98-107); CREATININE FOR GFR 0.84 MG/DL (0.70-1.30); GLOMERULAR FILTRATION RATE > 60.0 (>60); GLUCOSE, FASTING 96 MG/DL (70-100); SODIUM LEVEL 140 MEQ/L (136-145); TOTAL PROTEIN 7.7 GM/DL (6.4-8.2)
== END ==
LOC: M LAB 14:07
PROVIDERS: ATTEND Internal Medicine Gastroenterology
DX: D64.9 Anemia, unspecified (principal); K52.9 Noninfective gastroenteritis and colitis, unspecified

== ENCOUNTER 2020-10-11 08:12 | Outpatient (CLI) | payer OTHER ==
[~2020-10-11 08:12] MED LIST changes: +FAMO1TAB11 PO; +FISH1000 PO; +GNP80CHW PO; +NO ITAB PO; +VEDOLIZUMAB 300 MG in NS 250 ML IV ONE
[2020-10-11 08:21] VITALS: BP 129/81
[2020-10-11 09:32] VITALS: BP 137/71
== END 2020-10-11 09:35 | disposition home or self-care (01) ==
LOC: M INFU 08:12
PROVIDERS: ATTEND Internal Medicine Gastroenterology
DX: K51.90 Ulcerative colitis, unspecified, without complications (principal)
CPT/HCPCS: 96365; J3380

== ENCOUNTER 2020-10-12 09:51 | Day surgery (SDC) | payer OTHER ==
[~2020-10-12] VITALS: Ht 172.7 cm; Wt 90.4 kg
[~2020-10-12 09:51] MED LIST changes: +LIDOCAINE 2% 100MG/5ML SDV (FOR ANES.) As Ordered ONE; +NS 1,000 ML IV ONE; -VEDOLIZUMAB 300 MG in NS 250 ML IV ONE; +fentaNYL 100 MCG/2 ML INJECTION (J3010) As Ordered ONE; +propofoL 200 MG/20 ML VIAL As Ordered ONE
--- NOTE | 2020-10-12 10:44 | ROOR ---
Patient Name: Eric Heath Procedure Date: 10/12/2020 10:18 AM Date of : 1995 Age: 24 Room: [facility] Gender: Male Note Status: Finalized Procedure: Upper GI endoscopy Indications: Epigastric abdominal pain Providers: Tj Apodaca MD Referring MD: GEETHA INIGUEZ MD Requesting Provider: Medicines: Monitored Anesthesia Care Complications: No immediate complications. Procedure: Pre-Anesthesia Assessment: - Prior to the procedure, a History and Physical was performed, and patient medications and allergies were reviewed. The patient is competent. The risks and benefits of the procedure and the sedation options and risks were discussed with the patient. All questions were answered and informed consent was obtained. Patient identification and proposed procedure were verified by the physician, the nurse and the anesthesiologist in the procedure room. Mental Status Examination: alert and oriented. Airway Examination: normal oropharyngeal airway and neck mobility. Respiratory Examination: clear to auscultation. CV Examination: normal. Prophylactic Antibiotics: The patient does not require prophylactic antibiotics. Prior Anticoagulants: The patient has taken no previous anticoagulant or antiplatelet agents. ASA Grade Assessment: II - A patient with mild systemic disease. After reviewing the risks and benefits, the patient was deemed in satisfactory condition to undergo the procedure. The anesthesia plan was to use monitored anesthesia care (MAC). Immediately prior to administration of medications, the patient was re-assessed for adequacy to receive sedatives. The heart rate, respiratory rate, oxygen saturations, blood pressure, adequacy of pulmonary ventilation, and response to care were monitored throughout the procedure. The physical status of the patient was re-assessed after the procedure. The Endoscope was introduced through the mouth, and advanced to the second part of duodenum. The upper GI endoscopy was accomplished without difficulty. The patient tolerated the procedure well. Findings: The examined esophagus was normal. Scattered minimal inflammation characterized by erythema and granularity was found in the gastric antrum. Biopsies were taken with a cold forceps for Helicobacter pylori testing. Verification of patient identification for the specimen was done by the physician and nurse using the patient's name, date and medical record number. Estimated blood loss was minimal. The duodenal bulb and second portion of the duodenum were normal. Biopsies for histology were taken with a cold forceps for evaluation of celiac disease. Impression: - Normal esophagus. - Gastritis. Biopsied. - Normal duodenal bulb and second portion of the duodenum. Biopsied. Recommendation: - Patient has a contact number available for emergencies. The signs and symptoms of potential delayed complications were discussed with the patient. Return to normal activities tomorrow. Written discharge instructions were provided to the patient. - High fiber diet. - Continue present medications. - Await pathology results. - Follow an antireflux regimen. - Telephone GI clinic for pathology results in 2 weeks. - Return to GI clinic in [facility] (address [address], [address], [place] [address]) in 4 -- 6 weeks. Please call GI clinic @ [phone] for apppointment date and time. - Return to primary care physician. Procedure Code(s): --- Professional --- 92289, Esophagogastroduodenoscopy, flexible, transoral; with biopsy, single or multiple Diagnosis Code(s): --- Professional --- K29.70, Gastritis, unspecified, without bleeding R10.13, Epigastric pain CPT copyright 2019 [employer]. All rights reserved. The codes documented in this report are preliminary and upon architecture analyst review may be revised to meet current compliance requirements. Tj Apodaca MD Tj Apodaca MD 10/12/2020 10:44:13 AM Electronically signed by Tj Apodaca MD Number of Addenda: 0 Note Initiated On: 10/12/2020 10:18 AM Estimated Blood Loss: Estimated blood loss was minimal.
[2020-10-12 11:30] VITALS: BP 117/72
== END 2020-10-12 11:37 | disposition home or self-care (01) ==
LOC: M OPP 09:51
PROVIDERS: ATTEND Internal Medicine Gastroenterology
DX: K29.70 Gastritis, unspecified, without bleeding (principal); R10.13 Epigastric pain; Z79.899 Other long term (current) drug therapy; Z87.19 Personal history of other diseases of the digestive system; Z86.19 Personal history of other infectious and parasitic diseases
CPT/HCPCS: 43239; 88305; J3010

== ENCOUNTER → 2020-11-22 | Outpatient (CLI) | payer OTHER ==
[~2020-11-22] MED LIST changes: -LIDOCAINE 2% 100MG/5ML SDV (FOR ANES.) As Ordered ONE; -NS 1,000 ML IV ONE; -fentaNYL 100 MCG/2 ML INJECTION (J3010) As Ordered ONE; -propofoL 200 MG/20 ML VIAL As Ordered ONE
[2020-11-22 09:22] LABS: HEMATOCRIT 43.4 % (42.0-52.0); HEMOGLOBIN 14.7 g/dl (13.5-17.5); MEAN CORPUSCULAR HEMOGLOBIN 32.1 pg (27.0-33.0); MEAN CORPUSCULAR HGB CONC 33.9 g/dl (32.0-36.5); MEAN CORPUSCULAR VOLUME 94.8 fl (80.0-96.0); PLATELET COUNT, AUTOMATED 406 10^3/uL (150-450); RED BLOOD COUNT 4.58 10^6/uL (4.30-6.10); WHITE BLOOD COUNT 6.8 10^3/uL (4.0-10.0)
[2020-11-22 09:46] LABS: ALT/SGPT 23 U/L (12-78); BILIRUBIN,DIRECT 0.1 MG/DL (0.0-0.2); BILIRUBIN,TOTAL 0.4 MG/DL (0.2-1.0); BLOOD UREA NITROGEN 16 MG/DL (7-18); C REACTIVE PROTEIN QUANTITATIV < 0.30 MG/DL (0.00-0.30); CREATININE FOR GFR 0.94 MG/DL (0.70-1.30); GLOMERULAR FILTRATION RATE > 60.0 (>60); IRON (FE) 80 UG/DL (65-175); PERCENT SATURATION 21.7 % (19.7-50.0); TOTAL IRON BINDING CAPACITY 368 UG/DL (250-450); TOTAL PROTEIN 8.4 GM/DL (6.4-8.2)
[2020-11-22 10:28] LABS: ERYTHROCYTE SEDIMENTATION RATE 19 mm/hr (0-15)
== END ==
LOC: M LAB 08:35
PROVIDERS: ATTEND Internal Medicine Gastroenterology
DX: D64.9 Anemia, unspecified (principal)

== ENCOUNTER 2020-12-06 08:18 | Outpatient (CLI) | payer OTHER ==
[~2020-12-06] VITALS: Ht 172.7 cm; Wt 79.5 kg
[~2020-12-06 08:18] MED LIST changes: +VEDOLIZUMAB 300 MG in NS 250 ML IV ONE
[2020-12-06 08:36] VITALS: BP 137/77
[2020-12-06 09:20] VITALS: BP 127/64
== END 2020-12-06 09:20 | disposition home or self-care (01) ==
LOC: M INFU 08:18
PROVIDERS: ATTEND Internal Medicine Gastroenterology
DX: K51.90 Ulcerative colitis, unspecified, without complications (principal)
CPT/HCPCS: 96365; J3380

== ENCOUNTER 2021-01-28 11:17 | Day surgery (SDC) | payer OTHER ==
[~2021-01-28] VITALS: Ht 175.3 cm; Wt 92.4 kg
[~2021-01-28 11:17] MED LIST changes: +NS 1,000 ML IV ONE; -VEDOLIZUMAB 300 MG in NS 250 ML IV ONE
[2021-01-28] MEDS ORDERED: propofoL 500 MG/50 ML VIAL As Ordered ONE (12:25)
--- NOTE | 2021-01-28 13:33 | ROOR ---
Patient Name: Eric Heath Procedure Date: 01/28/2021 12:52 PM Date of : 1995 Age: 25 Room: [facility] Gender: Male Note Status: Finalized Procedure: Colonoscopy Indications: Follow-up of Crohn's disease of the colon, Disease activity assessment of Crohn's disease of the colon, Assess therapeutic response to therapy of Crohn's disease of the colon Providers: Tj Apodaca MD Referring MD: GEETHA INIGUEZ MD Requesting Provider: Medicines: Monitored Anesthesia Care Complications: No immediate complications. Procedure: Pre-Anesthesia Assessment: - Prior to the procedure, a History and Physical was performed, and patient medications and allergies were reviewed. The patient is competent. The risks and benefits of the procedure and the sedation options and risks were discussed with the patient. All questions were answered and informed consent was obtained. Patient identification and proposed procedure were verified by the physician, the nurse and the anesthesiologist in the procedure room. Mental Status Examination: alert and oriented. Airway Examination: normal oropharyngeal airway and neck mobility. Respiratory Examination: clear to auscultation. CV Examination: normal. Prophylactic Antibiotics: The patient does not require prophylactic antibiotics. Prior Anticoagulants: The patient has taken no previous anticoagulant or antiplatelet agents. ASA Grade Assessment: II - A patient with mild systemic disease. After reviewing the risks and benefits, the patient was deemed in satisfactory condition to undergo the procedure. The anesthesia plan was to use monitored anesthesia care (MAC). Immediately prior to administration of medications, the patient was re-assessed for adequacy to receive sedatives. The heart rate, respiratory rate, oxygen saturations, blood pressure, adequacy of pulmonary ventilation, and response to care were monitored throughout the procedure. The physical status of the patient was re-assessed after the procedure. The Colonoscope was introduced through the anus and advanced to the terminal ileum, with identification of the appendiceal orifice and IC valve. The colonoscopy was performed without difficulty. The patient tolerated the procedure well. The quality of the bowel preparation was good. The terminal ileum, ileocecal valve, appendiceal orifice, and rectum were photographed. Scope insertion time was 2 minutes. Scope withdrawal time was 8 minutes. The total duration of the procedure was 12 minutes. Findings: The perianal and digital rectal examinations were normal. The terminal ileum appeared normal. Discontinuous areas of nonbleeding ulcerated mucosa with stigmata of recent bleeding were present in the recto-sigmoid colon, in the descending colon and in the cecum. Biopsies were taken with a cold forceps for histology. Fluid aspiration was performed through the scope suction channel. The amount of fluid collected was 20 mL. Sample(s) were sent for Clostridium difficile. Verification of patient identification for the specimen was done by the physician and nurse using the patient's name, date and medical record number. Estimated blood loss was minimal. Non-bleeding external and internal hemorrhoids were found during retroflexion. The hemorrhoids were medium-sized. Impression: - The examined portion of the ileum was normal. - Mucosal ulceration. Biopsied. Fluid aspiration performed. - Non-bleeding external and internal hemorrhoids. Recommendation: - Patient has a contact number available for emergencies. The signs and symptoms of potential delayed complications were discussed with the patient. Return to normal activities tomorrow. Written discharge instructions were provided to the patient. - High fiber diet. - Continue present medications. - Await pathology results. - Telephone GI clinic for pathology results in 2 weeks. - Repeat colonoscopy in 1 year to assess disease activity. - Telephone GI clinic if symptomatic if persistent symptoms or new symptoms. - Return to primary care physician. Procedure Code(s): --- Professional --- 34965, Colonoscopy, flexible; with biopsy, single or multiple Diagnosis Code(s): --- Professional --- K64.8, Other hemorrhoids K63.3, Ulcer of intestine K50.10, Crohn's disease of large intestine without complications CPT copyright 2019 [employer]. All rights reserved. The codes documented in this report are preliminary and upon flask fitter review may be revised to meet current compliance requirements. Tj Apodaca MD Tj Apodaca MD 01/28/2021 1:33:08 PM Electronically signed by Tj Apodaca MD Number of Addenda: 0 Note Initiated On: 01/28/2021 12:52 PM Estimated Blood Loss: Estimated blood loss was minimal.
[2021-01-28 13:45] VITALS: BP 141/90
== END 2021-01-28 14:00 | disposition home or self-care (01) ==
LOC: M OPP 11:17
PROVIDERS: ATTEND Internal Medicine Gastroenterology
DX: K63.5 Polyp of colon (principal); K64.8 Other hemorrhoids; K50.10 Crohn's disease of large intestine without complications; Z86.19 Personal history of other infectious and parasitic diseases

== ENCOUNTER 2021-01-31 08:30 | Outpatient (CLI) | payer OTHER ==
[~2021-01-31] VITALS: Ht 172.7 cm; Wt 79.5 kg
[~2021-01-31 08:30] MED LIST changes: -NS 1,000 ML IV ONE; +VEDOLIZUMAB 300 MG in NS 250 ML IV ONE
[2021-01-31 08:44] VITALS: BP 122/60
[2021-01-31 10:12] VITALS: BP 128/73
== END 2021-01-31 10:10 | disposition home or self-care (01) ==
LOC: M INFU 08:30
PROVIDERS: ATTEND Internal Medicine Gastroenterology
DX: K51.90 Ulcerative colitis, unspecified, without complications (principal)
CPT/HCPCS: 96365; J3380